=== PATIENT | male | born 1980 | race Caucasian/White ===

== ENCOUNTER 2017-03-01 17:19 | Emergency (ER) | payer BC, OTHER ==
[2017-03-01 17:25] VITALS: BP 135/92; PULSE 70; RESP 16; TEMP 98.5
[2017-03-01] MEDS ORDERED: PROPARACAINE 0.5% OPHTH DROPS 15 ML BTL LEFT EYE STA (17:31)
[2017-03-01] MEDS ORDERED: DIPH,PERTUS(ACELL)TETVAC-LF 0.5 ML VIAL IM ONE (17:42)
--- NOTE | 2017-03-01 17:48 | ED ---
General Adult HPI - General Chief complaint: Eye Problems Stated complaint: [employer] in Left Eye Time Seen by Provider: 03/01/17 17:28 Source: patient, RN notes reviewed Mode of arrival: ambulatory Limitations: no limitations - History of Present Illness Initial comments: Patient is a 36-year-old male who presents emergency room today with a chief complaint of injury to the left eye. He does admit that approximately 5 hours ago at work he had some refractory technician that got into his left eye. He states he did wash it out. He states still had some irritation to the left eye. He states it is sensitive to light. States tetanus is not up-to-date. He denies any other complaints or symptoms. Patient denies any recent fever, chills, shortness of breath, chest pain, back pain, abdominal pain, nausea or vomiting, numbness or tingling, dysuria or hematuria, constipation or diarrhea, headaches , or any other complaints. - Related Data Previous Rx's Medication Instructions Recorded Ofloxacin 0.3% Ophth Soln [Ocuflox 1 - 2 drops LEFT EYE QID 7 Days 03/01/17 Ophth Soln] Allergies Allergy/AdvReac Type Severity Reaction Status Date / Time No Known Allergies Allergy Verified 03/01/17 17:28 Review of Systems ROS Statement: Those systems with pertinent positive or pertinent negative responses have been documented in the HPI. ROS Other: All systems not noted in ROS Statement are negative. Past Medical History Past Medical History: Diabetes Mellitus, Hyperlipidemia History of Any Multi-Drug Resistant Organisms: None Reported Past Surgical History: Hernia Repair, Orthopedic Surgery Additional Past Surgical History / Comment(s): pylinoidal cyst, right shoulder Past Anesthesia/Blood Transfusion Reactions: No Reported Reaction Past Psychological History: ADD/ADHD Smoking Status: Never smoker Past Alcohol Use History: None Reported Past Drug Use History: None Reported - Past Family History Mother Family Medical History: No Reported History General Exam - General Exam Comments Initial Comments: General: The patient is awake and alert, in no distress, and does not appear acutely ill. Eye: Pupils are equal, round and reactive to light, extra-ocular movements are intact. No nystagmus. Redness and irritation to the left conjunctiva. Watery discharge. Ears, nose, mouth and throat: There are moist mucous membranes and no oral lesions. Neck: The neck is supple, there is no tenderness or JVD. Cardiovascular: There is a regular rate and rhythm. No murmur, rub or gallop is appreciated. Respiratory: Lungs are clear to auscultation, respirations are non-labored, breath sounds are equal. No wheezes, stridor, rales, or rhonchi. Musculoskeletal: Normal ROM, no tenderness. Strength 5/5. Sensation intact. Pulses equal bilaterally 2+. Neurological: A&O x 3. CN II-XII intact, There are no obvious motor or sensory deficits. Coordination appears grossly intact. Speech is normal. Skin: Skin is warm and dry and no rashes or lesions are noted. Psychiatric: Cooperative, appropriate mood & affect, normal judgment. Limitations: no limitations Course Vital Signs 03/01/17 17:21 Temperature 98.5 F Pulse Rate 70 Respiratory 16 Rate Blood Pressure 135/92 O2 Sat by Pulse 97 Oximetry Procedures - Procedures Initial comment: Patient's left eye was checked with pH paper is 7.0. Was anesthetized locally with proparacaine drops were did relieve her symptoms. It was stained with folerscen and checked with both brown lamp and slit lamp exam which showed corneal abrasion at the 4:00 o'clock position. Medical Decision Making - Medical Decision Making Patient's pH normal urine emergency room. Patient will be started on antibiotic drops and tetanus is been updated. Advised follow-up delivery director over the next 2 days of symptoms have not completely resolved. Advised to use eyedrops and not wear contacts until symptoms have resolved. Disposition Clinical Impression: Corneal abrasion, left Disposition: HOME SELF-CARE Condition: Good Instructions: Corneal Abrasion (ED) Additional Instructions: Please use eyedrops for at least 2-3 days past once all symptoms have resolved. Please do not wear contacts until all symptoms have resolved. Please follow- up the delivery director over the next 2 days of symptoms are not improved. Please return to emergency room for any other concerns. Prescriptions: Ofloxacin 0.3% Ophth Soln [Ocuflox Ophth Soln] 1 - 2 drops LEFT EYE QID 7 Days Referrals: Kai Carlos MD [Primary Care Provider] - 1-2 days Bubba Malave MD [STAFF PHYSICIAN] - 1-2 days Time of Disposition: 17:46
== END 2017-03-01 18:03 | disposition home or self-care (01) ==
LOC: EC 17:19
DX: S05.02XA Injury of conjunctiva and corneal abrasion without foreign body, left eye, initial encounter (principal); Z23 Encounter for immunization; X58.XXXA Exposure to other specified factors, initial encounter; Y93.89 Activity, other specified; Y99.0 Civilian activity done for income or pay; Y92.69 Other specified industrial and construction area as the place of occurrence of the external cause
CPT/HCPCS: 90471; 90715; 99283

== ENCOUNTER 2017-04-21 07:16 | Emergency (ER) | payer BC, OTHER ==
[2017-04-21] MEDS ORDERED: DIPH,PERTUS(ACELL)TETVAC-LF 0.5 ML VIAL IM ONE (07:21)
[2017-04-21 07:26] VITALS: PULSE 92
[2017-04-21 07:35] LABS: Glucose,Whole Blood 367 mg/dL (75-99)
[2017-04-21 07:54] LABS: Basophils # (A) 0.1 k/uL (0-0.2); Basophils % (A) 1 %; CH 29.9; CHCM 35.4; Eosinophils # (A) 0.2 k/uL (0-0.7); Eosinophils % (A) 4 %; HCT 41.2 % (39.0-53.0); HDW 2.87; HGB 14.8 gm/dL (13.0-17.5); Luc # (Auto) 0.19; Luc % (Auto) 3; Lymphocytes % (A) 33 %; MCH 30.5 pg (25.0-35.0); MCV 84.7 fL (80.0-100.0); Mean Platelet Volume 7.7; Monocytes # (A) 0.4 k/uL (0-1.0); Monocytes % (A) 6 %; Neutrophils # (A) 3.3 k/uL (1.3-7.7); Neutrophils % (A) 54 %; RBC 4.86 m/uL (4.30-5.90); RDW 12.9 % (11.5-15.5); WBC 6.2 k/uL (3.8-10.6); WBC (Perox) 6.03
[2017-04-21 08:04] LABS: ALT 46 U/L (21-72); AST 26 U/L (17-59); Alcohol <10 mg/dL; Alkaline Phosphatase 113 U/L (38-126); Amylase 33 U/L (30-110); Anion Gap 14 mmol/L; Blood Urea Nitrogen 14 mg/dL (9-20); Calcium 9.6 mg/dL (8.4-10.2); Carbon Dioxide 21 mmol/L (22-30); Chloride 103 mmol/L (98-107); Glucose 366 mg/dL (74-99); Non-African American GFR(MDRD) >60 (>60 ml/min/1.73 sqM); Partial Thromboplastin Time 22.4 sec (22.0-30.0); Potassium 4.6 mmol/L (3.5-5.1); Prothrombin Time 10.4 sec (9.0-12.0); Sodium 138 mmol/L (137-145); Total Bilirubin 0.8 mg/dL (0.2-1.3); Total Protein 7.5 g/dL (6.3-8.2)
--- NOTE | 2017-04-21 08:05 | XR ---
EXAMINATION TYPE: XR pelvis AP view DATE OF EXAM: 04/21/2017 CLINICAL HISTORY: pain TECHNIQUE: Single view the pelvis is submitted. FINDINGS: No evidence for fracture, dislocation or bony lesion. Joint spaces are well-preserved. S I joints appear symmetric. IMPRESSION: 1. No acute fracture or dislocation seen. ICD 10 NO FRACTURE, INITIAL EVALUATION
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
[2017-04-21 08:21] LABS: Creatine Kinase 192 U/L (55-170)
[2017-04-21 08:34] LABS: Creatine Kinase MB 1.1 ng/mL (0.0-2.4); Troponin I <0.012 ng/mL (0.000-0.034)
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
--- NOTE | 2017-04-21 08:43 | XR ---
EXAMINATION TYPE: XR ankle complete LT DATE OF EXAM: 04/21/2017 COMPARISON: NONE HISTORY: Pain TECHNIQUE: 3 views of the left ankle are submitted for evaluation. FINDINGS: There is no evidence for fracture or dislocation. Ankle mortise is intact. Soft tissues are within normal limits. IMPRESSION: 1. No evidence for acute fracture.
--- NOTE | 2017-04-21 08:43 | XR ---
EXAMINATION TYPE: XR knee complete LT DATE OF EXAM: 04/21/2017 CLINICAL HISTORY: pain TECHNIQUE: Three views of the left knee are obtained. COMPARISON: None. FINDINGS: There is no acute fracture/dislocation. The tri-compartment joint spaces appear within no rmal limits. The overlying soft tissue appears unremarkable. IMPRESSION: There is no acute fracture or dislocation ICD 10 NO FRACTURE, INITIAL EVALUATION
--- NOTE | 2017-04-21 08:44 | XR ---
EXAMINATION TYPE: XR shoulder complete LT DATE OF EXAM: 04/21/2017 CLINICAL HISTORY: pain COMPARISON: NONE TECHNIQUE: Three views of the left shoulder are obtained. FINDINGS: There is no acute fracture/dislocation evident. The acromioclavicular and glenohumeral bethel int spaces appear within normal limits. The visualized ribs are intact and unremarkable. IMPRESSION: 1. There is no acute fracture or dislocation. ICD 10 NO FRACTURE, INITIAL EVALUATION
[2017-04-21] MEDS ORDERED: KETOROLAC 30 MG/ML 1 ML VIAL IVP STA (08:51)
[2017-04-21] MEDS ORDERED: SODIUM CHLORIDE 0.9% 1,000 ML IV ONE (08:56)
[2017-04-21 11:02] VITALS: BP 141/87; RESP 18; TEMP 97.4
== END 2017-04-21 11:03 | disposition home or self-care (01) ==
LOC: EC 07:16
DX: S93.402A Sprain of unspecified ligament of left ankle, initial encounter (principal); S80.02XA Contusion of left knee, initial encounter; S40.212A Abrasion of left shoulder, initial encounter; Z98.890 Other specified postprocedural states; E11.65 Type 2 diabetes mellitus with hyperglycemia; V20.4XXA Motorcycle driver injured in collision with pedestrian or animal in traffic accident, initial encounter; Y92.410 Unspecified street and highway as the place of occurrence of the external cause; Y93.89 Activity, other specified; Z53.20 Procedure and treatment not carried out because of patient's decision for unspecified reasons
CPT/HCPCS: 99285; 96374; 96361; 36415; 86900; 86901; 80053; 82150; 82550; 82553; 83690; 84484; 85025; 85610; 85730; 86850; 80320; 71010; 72170; 73030; 73562; 73610; 72125; 70450; J1885

== ENCOUNTER → 2018-06-28 | Outpatient (CLI) | payer BC ==
--- NOTE | 2018-06-28 18:32 | EST ---
EXERCISE STRESS DATE OF SERVICE: 06/28/2018 AGE: 37 SEX: Male HT: 5'9" WT: 210 PROTOCOL: Jeremy STAGE: III DURATION OF EXERCISE: 10:00 HEART RATE REST: 86 BLOOD PRESSURE REST: 112/79 MAXIMUM HEART RATE ACHIEVED: 172 MAXIMUM BLOOD PRESSURE: 156/69 85% MPHR: 154 100% MPHR: 181 METS: 11.7 INDICATIONS: Palpitations. CLINICAL INFORMATION: STRESS DATA: Pre-testing physical examination showed a heart rate of 86, pressure 112/79 mmHg. Baseline EKG showed sinus mechanism. The patient exercised on the treadmill according to Jeremy protocol for a total of 10 minutes and achieved 11.7 METs. Maximum heart rate was 172, which is about 95% of maximum predicted heart rate. Maximum blood pressure was 156/69 mmHg. Clinically the patient developed some chest discomfort in response to exercise. The discomfort was resolved on recovery. The EKG showed about 0.[address]-segment changes as well. The changes could be ischemic or could be worsening of the baseline EKG. The EKG showed about 0.[address]-segment changes at the peak of the exercise as well as on recovery. CONCLUSION: 1. Excellent exercise tolerance. 2. Chest discomfort in response to exercise. 3. Mildly abnormal EKG in response to exercise as well. 4. If the patient's symptoms are concerning for angina, a stress test with imaging modality is highly recommended. MMODL / IJN: [id number] /
== END | disposition home or self-care (01) ==
LOC: RADNMMAIN 08:56
PROVIDERS: ATTEND Internal Medicine
DX: R00.2 Palpitations (principal); R06.02 Shortness of breath
CPT/HCPCS: 93017

== ENCOUNTER 2019-05-01 12:13 | Emergency (ER) | payer OTHER ==
[2019-05-01 12:57] VITALS: RESP 18
--- NOTE | 2019-05-01 13:42 | ED ---
General Adult HPI - General Chief complaint: Psychiatric Symptoms Stated complaint: EPS eval Time Seen by Provider: 05/01/19 13:02 Source: patient, RN notes reviewed Mode of arrival: ambulatory Limitations: no limitations - History of Present Illness Initial comments: 38-year-old male with a past psychiatric history of depression and bipolar disorder presents to the emergency department for a chief complaint of suicidal thoughts. Patient states these thoughts have been stable for years. States he recently started seeing a counselor who wanted him to come in for evaluation of the suicidal thoughts. States that he quotes a letter to his friend stating how he wanted to kill himself and his called his counselor who sent him to the emergency department. Patient does not have a plan for suicide and states that he would do it in the most painless way possible. Patient denies these thoughts worsening in recent times and states that his thoughts have been stable for years. Denies any thoughts of harming anyone else.Patient has no other complaints at this time including shortness of breath, chest pain, abdominal pain, nausea or vomiting, headache, or visual changes. - Related Data Home Medications Medication Instructions Recorded Confirmed Glimepiride [Amaryl] 2 mg PO BID 05/01/19 05/01/19 metFORMIN HCL 1,000 mg PO BID 05/01/19 05/01/19 Allergies Allergy/AdvReac Type Severity Reaction Status Date / Time No Known Allergies Allergy Verified 05/01/19 13:31 Review of Systems ROS Statement: Those systems with pertinent positive or pertinent negative responses have been documented in the HPI. ROS Other: All systems not noted in ROS Statement are negative. Past Medical History Past Medical History: Diabetes Mellitus, Hyperlipidemia History of Any Multi-Drug Resistant Organisms: None Reported Past Surgical History: Hernia Repair, Orthopedic Surgery Additional Past Surgical History / Comment(s): pylinoidal cyst, right shoulder Past Anesthesia/Blood Transfusion Reactions: No Reported Reaction Past Psychological History: ADD/ADHD, Bipolar Smoking Status: Never smoker Past Alcohol Use History: None Reported Past Drug Use History: None Reported - Past Family History Mother Family Medical History: No Reported History General Exam Limitations: no limitations General appearance: alert, in no apparent distress Head exam: Present: atraumatic, normocephalic, normal inspection Eye exam: Present: normal appearance, PERRL, EOMI. Absent: scleral icterus, conjunctival injection, periorbital swelling ENT exam: Present: normal exam, mucous membranes moist Neck exam: Present: normal inspection, full ROM. Absent: tenderness, meningismus, lymphadenopathy Respiratory exam: Present: normal lung sounds bilaterally. Absent: respiratory distress, wheezes, rales, rhonchi, stridor Cardiovascular Exam: Present: regular rate, normal rhythm, normal heart sounds. Absent: systolic murmur, diastolic murmur, rubs, gallop, clicks Psychiatric exam: Present: suicidal ideation. Absent: homicidal ideation Course Vital Signs 05/01/19 12:53 Temperature 98.6 F Pulse Rate 74 Respiratory 18 Rate Blood Pressure 144/94 O2 Sat by Pulse 98 Oximetry Medical Decision Making - Medical Decision Making 38-year-old male with a past psychiatric history of depression and bipolar disorder presents for suicidal thoughts. These have been stable for years. Patient denies any increase in recent suicidal thoughts. Patient states he only came in today because his therapist wanted to. Denies a plan for suicide. Patient was evaluated by EPS did form a safety plan. Patient was discharged. He will follow up outpatient and return if he has any worsening symptoms which were discussed with him. - Lab Data Lab Results 05/01/19 Range/Units 13:20 Urine Opiates Screen Not Detected (NotDetected) Ur Oxycodone Screen Not Detected (NotDetected) Urine Methadone Screen Not Detected (NotDetected) Ur Propoxyphene Screen Not Detected (NotDetected) Ur Barbiturates Screen Not Detected (NotDetected) U Tricyclic Antidepress Not Detected (NotDetected) Ur Phencyclidine Scrn Not Detected (NotDetected) Ur Amphetamines Screen Not Detected (NotDetected) U Methamphetamines Scrn Not Detected (NotDetected) U Benzodiazepines Scrn Not Detected (NotDetected) Urine Cocaine Screen Not Detected (NotDetected) U Marijuana (THC) Screen Detected H (NotDetected) Disposition Clinical Impression: Depression Disposition: HOME SELF-CARE Condition: Good Instructions (If sedation given, give patient instructions): Suicide Prevention (ED), Depression (ED) Additional Instructions: Please follow up with primary care in 1-2 days. Return to the emergency department if you have any worsening symptoms. Is patient prescribed a controlled substance at d/c from ED?: No Referrals: Kai Carlos MD [Primary Care Provider] - 1-2 days Time of Disposition: 15:54
[2019-05-01 13:43] LABS: Amphetamine Screen,Urine Not Detected (NotDetected); Barbiturate Screen,Urine Not Detected (NotDetected); Benzodiazepines Screen,Urine Not Detected (NotDetected); Cocaine Screen,Urine Not Detected (NotDetected); Methadone Screen, Urine Not Detected (NotDetected); Opiate Screen,Urine Not Detected (NotDetected); Oxycodone Screen, Urine Not Detected (NotDetected); Phencyclidine Screen,Urine Not Detected (NotDetected); Tricyclic Antidepressant,Urine Not Detected (NotDetected); Urn Cannabinoid Scrn Detected (NotDetected)
[2019-05-01 16:22] VITALS: BP 133/96; PULSE 79; TEMP 98
== END 2019-05-01 16:22 | disposition home or self-care (01) ==
LOC: EC 12:13
DX: F31.30 Bipolar disorder, current episode depressed, mild or moderate severity, unspecified (principal); R45.851 Suicidal ideations; E11.9 Type 2 diabetes mellitus without complications; Z79.84 Long term (current) use of oral hypoglycemic drugs
CPT/HCPCS: 80306; 82075; 99285

== ENCOUNTER → 2022-12-07 | Outpatient (CLI) | payer OTHER ==
[2022-12-08 02:34] LABS: HCT 37.7 % (39.6-50.0); HGB 12.3 g/dL (13.0-17.0); MCH 29.2 pg (27.0-32.0); MCHC 32.6 g/dL (32.0-37.0); MCV 89.5 fL (80.0-97.0); Mean Platelet Volume 11.5 fL (9.5-12.2); NRBC Per 100 WBC 0 /100 WBCS (0.0-0.0); Platelet Count 223 X 10*3/uL (140-440); RBC 4.21 X 10*6/uL (4.40-5.60); RDW 12.8 % (11.5-14.5); WBC 6.49 X 10*3/uL (4.50-10.00)
[2022-12-08 03:37] LABS: Anion Gap 11.4 mmol/L (10.00-18.00); Blood Urea Nitrogen 9.5 mg/dL (9.0-27.0); Carbon Dioxide 25.6 mmol/L (20.0-27.5); Non-African American GFR(CKD) 103.5 (60.0-200.0); Potassium 4.7 mmol/L (3.5-5.5)
== END | disposition home or self-care (01) ==
LOC: LABPAT 13:02
PROVIDERS: ATTEND Internal Medicine Interventional Cardiology
DX: Z01.812 Encounter for preprocedural laboratory examination (principal); I35.0 Nonrheumatic aortic (valve) stenosis
CPT/HCPCS: 80051; 82565; 84520; 85027

== ENCOUNTER → 2023-01-05 | Outpatient (CLI) | payer OTHER ==
[2023-01-05 12:02] LABS: INR 0.9 (<1.2); Partial Thromboplastin Time 25.8 sec (22.0-30.0); Prothrombin Time 10.1 sec (9.0-12.0)
--- NOTE | 2023-01-05 12:10 | P.PN ---
Progress Note - Text Progress Note Date: 01/05/23 5 meter walk test completed without difficulty: #1 5.10 sec #2 4.67 sec #3 4.53 sec STS risk to be calculated and discussed with patient
[2023-01-05 14:47] LABS: HCT 38.4 % (39.6-50.0); MCHC 33.9 g/dL (32.0-37.0); MCV 88.7 fL (80.0-97.0); Mean Platelet Volume 10.5 fL (9.5-12.2); NRBC Per 100 WBC 0 /100 WBCS (0.0-0.0); Platelet Count 208 X 10*3/uL (140-440); RBC 4.33 X 10*6/uL (4.40-5.60); RDW 12.9 % (11.5-14.5); WBC 5.21 X 10*3/uL (4.50-10.00)
[2023-01-05 15:21] LABS: Chol/HDL Ratio 3.22 Ratio
[2023-01-05 15:22] LABS: ALT 25 U/L (10-49); AST 16 U/L (14-35); African American GFR (CKD) 125.4 (60.0-200.0); Albumin 4.6 g/dL (3.8-4.9); Albumin/Globulin Ratio 1.88 (1.60-3.17); Alkaline Phosphatase 75 U/L (41-126); BUN/Creat Ratio 9.88 Ratio (12.00-20.00); Calcium 9.5 mg/dL (8.7-10.3); Carbon Dioxide 27.7 mmol/L (20.0-27.5); Chloride 102 mmol/L (96-109); Globulin 2.4 g/dL (1.6-3.3); Glucose 223 mg/dL (70-110); Magnesium 1.9 mg/dL (1.5-2.4); Non-African American GFR(CKD) 108.2 (60.0-200.0); Potassium 4.6 mmol/L (3.5-5.5); Sodium 142 mmol/L (135-145)
[2023-01-05 15:58] LABS: Hepatitis A Antibody IgM Nonreactive (Nonreactive); Hepatitis B Core IgM Nonreactive (Nonreactive); Hepatitis C IgG Antibody Nonreactive (Nonreactive)
[2023-01-05 18:16] LABS: Hepatitis B Surface Antigen Nonreactive (Nonreactive)
--- NOTE | 2023-01-07 09:50 | US ---
EXAMINATION TYPE: US vein mapping BIL DATE OF EXAM: 01/05/2023 12:49 PM COMPARISON: NONE CLINICAL INDICATION: Male, 42 years old with history of OPEN HEART; SIDE PERFORMED: Bilateral TECHNIQUE: Lower extremity saphenous vein is examined and measured utilizing real time linear array sonography. Patient History: Smoker: No Heart Disease: No Previous DVT: No Vascular Surgery: No Discoloration: No Hypertension: Yes Diabetes: Yes Paralysis: No Varicosities: Yes Edema: No DUPLEX FINDINGS: Greater Saphenous: Color flow seen Measurements in mm: Right Greater Saphenous: Groin: 4.7x4.8 mm High Thigh: 2.9x3.0 mm Mid Thigh: 2.2x2.8 mm Above Knee: 3.5x3.7 mm Knee: 3.2x4.0 mm Below Knee: 3.2x3.8 mm Mid Calf: 2.7x3.8 mm At Ankle: 3.0x4.0 mm Left Greater Saphenous: Groin: 4.9x6.7 mm High Thigh: 3.5x4.5 mm Mid Thigh: 3.0x3.2 mm Above Knee: 3.1x3.5 mm Knee: 3.3x3.8 mm Below Knee: 2.0x2.6 mm Mid Calf: 3.5x3.9 mm At Ankle: 3.3x3.2 mm extensive varicosities visualized bilaterally, GSV leaves fasciae IMPRESSION: 1. Bilateral GSV measurements listed above. 2. Performing surgeon to determine viability as conduit.
== END | disposition home or self-care (01) ==
LOC: LABWHC1 11:01
PROVIDERS: ATTEND Surgery
DX: Z01.810 Encounter for preprocedural cardiovascular examination (principal); I10 Essential (primary) hypertension; E11.9 Type 2 diabetes mellitus without complications
CPT/HCPCS: 36415; 80053; 80061; 80074; 83036; 83735; 84443; 85027; 85610; 85730; 87070; 87086; 93970

== ENCOUNTER 2023-01-10 08:00 | Inpatient (IN) | payer OTHER ==
[2023-01-11] MEDS ORDERED: propofoL 1,000 MG/100 ML VIAL IV ONE (05:00)
[2023-01-11] MEDS ORDERED: NITROGLYCERIN-D5W PMX 50 MG in DEXTROSE/WATER 1 250ML.BAG IV ONE (05:00)
[2023-01-11] MEDS ORDERED: ELECTROLYTE-A SOLUTION 1,000 ML with POTASSIUM CHLORIDE 40 MEQ, MAGNESIUM SULFATE 16 ME... IV ONE ×5 (05:00)
[2023-01-11] MEDS ORDERED: SODIUM CHLORIDE 0.9% 1,000 ML IV ONE (05:00)
[2023-01-11] MEDS ORDERED: MANNITOL 25% 12.5 GM/50 ML VIAL IV ONE (05:00)
[2023-01-11] MEDS ORDERED: CHLORHEXIDINE GLUCONATE 15 ML CUP MUCOUS MEM ONE (05:00)
[2023-01-11] MEDS ORDERED: PHENYLEPHRINE 40 MG in SODIUM CHLORIDE 0.9% 250 ML IV ONE (05:00)
[2023-01-11] MEDS ORDERED: NITROGLYCERIN SL TABS 0.4 MG TAB SUBLINGUAL ONE (05:00)
[2023-01-11] MEDS ORDERED: HEPARIN SODIUM,PORCINE 5,000 UNIT in SODIUM CHLORIDE 0.9% 500 ML 500 ML IV ONE (05:00)
[2023-01-11] MEDS ORDERED: METOPROLOL TARTRATE 12.5 MG TAB PO ONE (05:00)
[2023-01-11] MEDS ORDERED: ALBUMIN HUMAN 5% 500 ML IVPB ONE (05:00)
[2023-01-11] MEDS ORDERED: MAGNESIUM SULFATE 16.24 MEQ in EMPTY SYRINGE 1 SYR IV ONE (05:00)
[2023-01-11] MEDS ORDERED: ASPIRIN 325 MG TAB PO ONE (05:00)
[2023-01-11] MEDS ORDERED: HEPARIN SODIUM 1,000 UN/ML (10ML VL) IV ONE (05:00)
[2023-01-11] MEDS ORDERED: TRANEXAMIC ACID 2,000 MG in SODIUM CHLORIDE 0.9% 80 ML IV ONE ×4 (05:00)
[2023-01-11] MEDS ORDERED: ATORVASTATIN 10 MG TAB PO ONE (05:00)
[2023-01-11] MEDS ORDERED: ALBUMIN HUMAN 25% 50 ML IV ONE (05:00)
[2023-01-11] MEDS ORDERED: PAPAVERINE 360 MG in SODIUM CHLORIDE 0.9% 90 ML IV ONE (05:00)
[2023-01-11] MEDS ORDERED: PROTAMINE SULFATE 250 MG in EMPTY BAG 1 BAG IV ONE (05:00)
[2023-01-11] MEDS ORDERED: PROTAMINE SULFATE 10 MG/ML 25 ML VIAL IV ONE ×2 (05:00→07:35)
[2023-01-11] MEDS ORDERED: PHENYLEPHRINE 10 MG/ML VIAL IV ONE (05:00)
[2023-01-11] MEDS ORDERED: CALCIUM CHLORIDE 100 MG/ML 10 ML SYRINGE IV ONE (05:00)
[2023-01-11] MEDS ORDERED: SODIUM BICARB 8.4% 50 ML SYR (1 MEQ/ML) IV ONE (05:00)
[2023-01-11] MEDS ORDERED: NOREPINEPHRINE 4 MG in SODIUM CHLORIDE 0.9% 250 ML IV ONE (05:00)
[2023-01-11] MEDS ORDERED: NITROGLYCERIN-D5W PMX 25 MG/250 ML BTL IV ONE (05:00)
[2023-01-11] MEDS ORDERED: INSULIN REGULAR 100 UNIT in SODIUM CHLORIDE 0.9% 100 ML IV ONE (05:00)
[2023-01-11] MEDS ORDERED: ceFAZolin 1,000 MG in SODIUM CHLORIDE 0.9% IRRIGATIO 1,000 ML IRRIGATION ONE (05:00)
[2023-01-11] MEDS ORDERED: LACTATED RINGERS 1,000 ML IV ONE (05:00)
[2023-01-11] MEDS ORDERED: ELECTROLYTE-A SOLUTION 1,000 ML with POTASSIUM CHLORIDE 100 MEQ, MAGNESIUM SULFATE 16 M... IV ONE ×5 (05:00)
[2023-01-11] MEDS ORDERED: CLEVIDIPINE BUTYRATE 25 MG in EMPTY BAG 1 BAG IV ONE (05:00)
[2023-01-11 06:16] LABS: Glucose,Whole Blood 232 mg/dL (70-110)
[2023-01-11] MEDS ORDERED: ALBUMIN HUMAN 5% (25gm) 500 ML VIAL IVPB ONE (07:35)
[2023-01-11] MEDS ORDERED: LIDOCAINE 2% SYG (PF) 100 MG/5 ML ONE (07:35)
[2023-01-11] MEDS ORDERED: HEPARIN SODIUM,PORCINE 10,000 UNIT/ML 1 ML VIAL ONE (07:35)
[2023-01-11] MEDS ORDERED: PROPOFOL 10 MG/ML 20 ML VIAL IV ONE (07:35)
[2023-01-11] MEDS ORDERED: ROCURONIUM 10 MG/ML (5 ML VIAL) IV ONE (07:35)
[2023-01-11] MEDS ORDERED: SODIUM CHLORIDE 0.9% IRRIG 1,000 ML BTL IRRIGATION ONE (07:35)
[2023-01-11] MEDS ORDERED: VANCOMYCIN 1,000 MG VIAL ONE (07:35)
[2023-01-11] MEDS ORDERED: LIDOCAINE 2% INJ 20 MG/ML (2 ML VIAL) ONE (07:35)
[2023-01-11] MEDS ORDERED: MIDAZOLAM HCL 10 MG/10 ML VIAL ONE (07:35)
[2023-01-11] MEDS ORDERED: fentaNYL (PF) 50 MCG/ML 50 ML VIAL ONE (07:35)
[2023-01-11] MEDS ORDERED: VECURONIUM 10 MG VIAL IV ONE (07:35)
[2023-01-11] MEDS ORDERED: MAGNESIUM SULFATE 4 MEQ/ML 10ML VIAL ONE (07:35)
[2023-01-11] MEDS ORDERED: TRANEXAMIC ACID IN NACL,ISO-OS 1,000 MG/100 ML BAG ONE (07:35)
[2023-01-11] MEDS ORDERED: ELECTROLYTE-R (PH 7.4) 1,000 ML IV.SOLN IV ONE (07:35)
[2023-01-11 08:25] LABS: Glucose,Whole Blood 160 mg/dL (70-110)
[2023-01-11] MEDS ORDERED: CALCIUM GLUCONATE IN NACL 2 GM in SALINE 1 100ML.BAG IVPB PRN (13:23)
[2023-01-11] MEDS ORDERED: DEXTROSE 5% IN WATER 100 ML with AMIODARONE 150 MG IV PRN (13:23)
[2023-01-11] MEDS ORDERED: AMIODARONE 450 MG in DEXTROSE 5% IN WATER 250 ML IV PRN ×2 (13:23)
[2023-01-11] MEDS ORDERED: DEXTROSE 50% SYRINGE 50 ML IVP PRN ×2 (13:23)
[2023-01-11] MEDS ORDERED: IPRATROPIUM-ALBUTEROL 3 ML NEB INHALATION PRN (13:23)
[2023-01-11] MEDS ORDERED: Magnesium Replacement Protocol 1 EACH MISC MISCELLANE PRN (13:23)
[2023-01-11] MEDS ORDERED: hydrALAZINE HCL 20 MG/ML 1 ML VIAL IVP PRN (13:23)
[2023-01-11] MEDS ORDERED: BENZOCAINE/MENTHOL LOZENG 1 EACH LOZENGE MUCOUS MEM PRN (13:23)
[2023-01-11] MEDS ORDERED: DEXMEDETOMIDINE/0.9% NACL(PMX) 400 MCG in EMPTY BAG 1 BAG IV SCH (13:23)
[2023-01-11] MEDS ORDERED: Potassium Replacement Protocol 1 EACH MISC MISCELLANE PRN (13:23)
[2023-01-11] MEDS ORDERED: ONDANSETRON 4 MG/2 ML VIAL IVP PRN (13:23)
[2023-01-11] MEDS ORDERED: AMIODARONE 360 MG in DEXTROSE 5% IN WATER 200 ML IV PRN ×2 (13:23)
[2023-01-11] MEDS ORDERED: MORPHINE SULFATE 2 MG/ML SYRINGE IVP PRN (13:23)
[2023-01-11] MEDS: CLEVIDIPINE BUTYRATE 25 MG in EMPTY BAG 1 BAG IV SCH ×2 (13:47→18:18)
[2023-01-11] MEDS ORDERED: NOREPINEPHRINE 4 MG in SODIUM CHLORIDE 0.9% 250 ML IV SCH (14:00)
[2023-01-11] MEDS: MILRINONE-D5W PMX 20 MG in DEXTROSE/WATER 1 100ML.BAG IV SCH (14:30)
[2023-01-11] MEDS: INSULIN REGULAR 100 UNIT in SODIUM CHLORIDE 0.9% 100 ML IV SCH (14:30)
[2023-01-11] MEDS: SODIUM CHLORIDE 0.9% 1,000 ML IV SCH (14:30)
[2023-01-11 14:48] LABS: Glucose,Whole Blood 153 mg/dL (70-110)
--- NOTE | 2023-01-11 14:48 | P.OP ---
Date of Procedure: 01/11/23 Preoperative Diagnosis: Severe bicuspid aortic valve stenosis, preserved left ventricular systolic function, diabetes mellitus, hypertension, hyperlipidemia, family history of coronary artery disease. Postoperative Diagnosis: Severe bicuspid aortic valves stenosis with fusion of the right and the left coronary cusps with very highly situated RCA takeoff, hypertension, hyperlipidemia ,diabetes mellitus ,family history of coronary artery disease Procedure(s) Performed: 1Aortic valve replacement using a 23 mm mechanical prosthesis, OnX valve with conform sewing ring. 2Exclusion of the left atrial appendage using a 35 mm atriclip 3-Intraoperative transesophageal echocardiogram and epi-aortic ultrasound Implants: ON-X Mechanical valve , 23 mm , SN: [id number] ATRICLIP 35 mm Anesthesia: GETA Surgeon: Hung Joseph Pathology: other (AORTIC VALVE) Condition: stable Disposition: ICU Indications for Procedure: Severe symptomatic calcified bicuspid aortic valve stenosis Operative Findings: Heavily calcified aortic valve with fusion of the left and right coronary cusps. Very high takeoff anteriorly of the right coronary artery. Some visible coronary artery disease at the level of the mid to distal posterior descending artery. Description of Procedure: Patient had a right internal jugular [place]-Donna catheter and a right radial arterial line placed in the preoperative holding area. His PA pressure was 40/24 his cardiac index was 3.8. Subsequently he was brought to the operating room where general endotracheal anesthesia was induced uneventfully. Huber catheter was placed. The chest abdomen and both lower extremities were prepped and draped using ChloraPrep. Ioban was used to cover the skin. Patient received 2 g of cefazolin intravenously as well as 1 g of vancomycin intravenously in view of positive nasal culture for MSSA. Transesophageal echocardiogram confirmed the preoperative finding of severe calcified aortic valve stenosis with mild aortic valve regurgitation. Left ventricular hypertrophy with preserved systolic function but evidence of some diastolic dysfunction with mild mitral valve regurgitation. Midline sternotomy was performed and the bone was quite dense and profusely bleeding. No bone wax was used. Both pleura remained grossly intact. Ankeney retractor was used. Mediastinal fat which was transected between 2 ties and epi-aortic ultrasound ruled out any protruding atheroma in the ascending aorta. Pericardium was opened in an inverted T fashion and pericardial cradle was created. Findings included a mildly dilated aorta which we knew from his CAT scan preoperatively at 4 cm and hypertrophied heart. The right coronary artery takeoff was very high anteriorly. There were visible coronary artery plaques at the level of the mid to distal posterior descending artery but none elsewhere. After systemic heparinization and after placement of respective pledgeted pursestring aortic cannulation in the proximal arch with a 21-[place]auritanian soft flow cannula, venous cannulation via the right atrial appendage with a 3 stage 29- [place] cannula, antegrade as well as retrograde cardioplegia catheter were placed. No left ventricular vent was used in this case. Cardiac rhythm bypass was initiated and with the heart empty and beating we went ahead and excluded the left atrial appendage by deploying a 35 mm at chiclet at its space. Subsequently the aorta was clamped and were able to achieve adequate arrest with around 200 mL of antegrade cold blood cardioplegia. A total of 1 L was given antegrade followed by 500 mL retrograde. All subsequent doses were given retrograde at 15-20 minutes interval. As mentioned above the right coronary artery takeoff was quite high and we made an aortotomy at around 1-1/2 cm above that. Extubation revealed a heavily calcified bicuspid aortic valve with fusion of the left and the right coronary cusps. We excised the valve into A while to decalcify this heavily calcified annulus. Thorough irrigation with around 750 mL of cold saline followed. CO2 was flowing over the field as long as the aorta was opened. We passed a total of 17 sutures of Tycron 2/0 pledgeted in a horizontal mattress fashion with a pledgeted on the ventricular side. The valve was sized at this point at the 23 mm onX mechanical valve which was brought into the field. All the sutures were passed symmetrically into the cuff of the valve that seated n icely in a supra-annular position. All the needles were cut and the sutures tied using the core- knot device. Both coronary ostia were clear. There was free movement of the disks and the valve orientation allowed the flow to the right and left coronaries preferentially. At this point rewarming was started as we closed the aorta in 2 layers using 4-0 Prolene buttressed on each corner with a pledget, with a first layer in a horizontal mattress fashion and the second layer an over and over technique. De-airing maneuvers were pursued at this point. Patient was placed in Trendelenburg position and with the aortic vent on maximum we went ahead and unclamping the aorta via patient required around 4 to 5 DCC to regained spontaneous sinus bradycardia rhythm. However the ST segment was normal. After around 15 minutes of reperfusion we were able to wean off cardiac bypass on low dose Primacor and Levophed. JOSE showed good functioning valve with low gradient at around 6 mmHg and de-airing was guided by JOSE in we achieved adequate de-airing. No paravalvular leak was noted. With that or pump suckers were stopped as we gave test dose followed by full dose protamine. Decannulation followed. The venous cannulation site required reinforcement with a running 4-0 Prolene at the tip of the appendage. 2 monopolar atrial pacing wires were affixed to the respective pursestring of the right atrium and one bipolar ventricular pacing wire was driven very superficially into the diaphragmatic aspect of the right ventricle. 219-Mauritanian Thong drain were left substernally. Mediastinal fat was estimated over the aorta and the pericardium was approximated nicely over the aorta and RV. After ensuring adequate hemostasis and hemodynamics and after a correct sponge, instrument and needle count the sternum was approximated patient did not receive any blood and bile duct but received around 1 L of Cell Saver blood. His chest to to the ICU in normal EKG atrial paced at 84 sinus bradycardia with good AV conduction. Pressure 40/20 Of 2.4 mean arterial pressure 74. using 6 [id number] Boyd cables after interposing fibrillar between the sternal edges. Thorough irrigation with cefazolin followed. The rest of the closure proceeded in layers. Skin glue was applied. Patient did not receive any blood bank product but received 1 L of Cell Saver blood. His chest to the ICU with excellent flow and anatomy normal EKG with sinus bradycardia , Atrially paced at 80 with a PA pressure 40/24, cardiac index of 2.4 mean arterial pressure 72 on low dose Primacor and Levophed
[2023-01-11] MEDS ORDERED: MUPIROCIN 2% OINT 22 GM TUBE NASAL ONE (15:00)
--- NOTE | 2023-01-11 15:17 | XR ---
EXAMINATION TYPE: XR chest 1V portable DATE OF EXAM: 01/11/2023 COMPARISON: 12/14/2022 HISTORY: Postop TECHNIQUE: Single frontal view of the chest is obtained. FINDINGS: ET tube approximately 3.4 cm of moody. NG tube seen extending in the upper quadrant of th e left. Subpulmonary [place]-Donna catheter overlies the proximal pulmonary outflow tract. There is posts urgical changes. No pneumothorax. No sizable pleural effusion or consolidation. IMPRESSION: Postoperative changes.
[2023-01-11 15:24] LABS: ABG Base Excess -1.6 mmol/L; ABG HCO3 24 mmol/L (21-25); ABG PCO2 44 mmHg (35-45); ABG PH 7.35 (7.35-7.45); ABG PO2 351 mmHg (83-108); ABG TCO2 25 mmol/L (19-24)
[2023-01-11 15:28] LABS: Allen Test Performed? no
[2023-01-11 15:32] LABS: Basophils % (A) 0 %; Eosinophils # (A) 0.1 k/uL (0-0.7); Eosinophils % (A) 1 %; HCT 28.8 % (39.0-53.0); Lymphocytes # (A) 1.5 k/uL (1.0-4.8); Lymphocytes % (A) 11 %; MCH 30.8 pg (25.0-35.0); MCHC 34.3 g/dL (31.0-37.0); MCV 89.8 fL (80.0-100.0); Mean Platelet Volume 8.3; Monocytes # (A) 0.7 k/uL (0-1.0); Monocytes % (A) 5 %; Neutrophils # (A) 11.4 k/uL (1.3-7.7); Neutrophils % (A) 82 %; Platelet Count 124 k/uL (150-450); RBC 3.21 m/uL (4.30-5.90); RDW 13.6 % (11.5-15.5); WBC 13.8 k/uL (3.8-10.6)
[2023-01-11 15:35] LABS: HGB 9.9 gm/dL (13.0-17.5)
[2023-01-11 15:37] LABS: Ionized Calcium 4.9 mg/dL (4.5-5.3)
[2023-01-11 15:41] LABS: INR 1.2 (<1.2); Partial Thromboplastin Time 28.9 sec (22.0-30.0); Prothrombin Time 12.7 sec (9.0-12.0)
[2023-01-11 15:44] LABS: ALT 23 U/L (4-49); AST 45 U/L (17-59); African American GFR (CKD) >90 (>60 ml/min/1.73 sqM); Albumin 3.2 g/dL (3.5-5.0); Alkaline Phosphatase 47 U/L (38-126); Anion Gap 7 mmol/L; Blood Urea Nitrogen 8 mg/dL (9-20); Calcium 7.8 mg/dL (8.4-10.2); Carbon Dioxide 24 mmol/L (22-30); Chloride 107 mmol/L (98-107); Glucose 162 mg/dL (74-99); Magnesium 2.1 mg/dL (1.6-2.3); Non-African American GFR(CKD) >90 (>60 ml/min/1.73 sqM); Potassium 4.6 mmol/L (3.5-5.1); Sodium 138 mmol/L (137-145); Total Bilirubin 0.5 mg/dL (0.2-1.3)
[2023-01-11 15:50] LABS: Glucose,Whole Blood 137 mg/dL (70-110)
[2023-01-11] MEDS ORDERED: IPRATROPIUM-ALBUTEROL 3 ML NEB INHALATION SCH (16:00)
[2023-01-11] MEDS: ALBUMIN HUMAN 5% 250 ML in EMPTY BAG 1 BAG IVPB PRN (16:06)
--- NOTE | 2023-01-11 16:42 | P.ANPRN ---
Procedure Note - Anesthesia - Invasive Line Right Central Line Time Out Performed: Yes ([id number]) Date of Procedure: 01/11/23 Location of Patient: PreOp Preparation: Sterile Prep, Sterile Dressing Central Line Location: Internal Jugular Ultrasound Used: Yes Purpose - Visualization and Identification of Vasculature: Yes Image Stored and Saved: Yes Narrative: Informed consent obtained.Right Internal jugular vein cannulated under aseptic precautions. 3cc 1% lidocaine infiltrated initially after cleaning with iodine based prep and draping. Ultrasound used to locate the vein and Seldinger technique used. 9Fr introduced sheath inserted and after the finding the needle with aircraft pilot needle/catheter. The introducer sheath was sutured in place. After the insertion of PA Catheter the insertion site was dressed with biopatch and tegaderm. Patient tolerated the procedure well. Right [place] Donna Time Out Performed: Yes Date of Procedure: 01/11/23 Location of Patient: PreOp Preparation: Sterile Prep, Sterile Dressing [place] Donna Line Location: Internal Jugular Ultrasound Used: No Narrative: Central line placement per sterile protocol utilized. 8Ff PA catheter threaded through the Right IJ introducer sheath under asepsis with continuous waveform monitoring. Catheter at 50 cms butch. - JOSE Intraop Pre Bypass JOSE Intraop - Anesthesia Indication: mechanical aortic valve replacement Date of Procedure: 01/11/23 Pre-operative Diagnosis: severe aortic stenosis Post-operative Diagnosis: severe aortic stenosis status post aortic valve replacement Surgeon: Hung Joseph Ejection Fraction: Normal Regional Wall Motion Abnormalities: None Left Ventricle Hypertrophy: Yes R. Ventricle Function: Normal Aortic Valve: Severely calcified aortic valve noted. Appears to be bicuspid/unicuspid. Aortic valve is that is stenosed with slit like opening. Mean gradient across the valve 44 mmHg and peak gradient 59 mm of mercury. Aortic Stenosis: Severe Aortic Regurgitation: Moderate Mitral Stenosis: None Mitral Regurgitation: Trace Tricuspid Stenosis: None Tricuspid Regurgitation: Trace Pulmonic Stenosis: None Pulmonic Regurgitation: None R. Atrial Dilation: No R. Atrial PFO: No L. Atrial Dilation: No Aortic Dissection: No Aortic Calcification: None Plural Effusion: None - JOSE Intraop Post Bypass JOSE Intraop Post Bypass Procedure Performed: Aortic valve replaced with mechanical valve Ejection Fraction: Normal Regional Wall Motion Abnormalities: None R. Ventricle Function: Normal Aortic Valve: Prosthetic aortic valve noted in situ. Mean gradient across the valve 6 mmHg and peak gradient 12 mmHg. There is trace paravalvular regurgitation at 1 o'clock position in short axis view. Without appears to be seated well with no hemodynamic issues. Mitral Valve: Unchanged Tricuspid: Unchanged Pulmonic: Unchanged Aortic Dissection: No
--- NOTE | 2023-01-11 16:48 | P.CNPUL ---
History of Present Illness Consult date: 01/11/23 Requesting physician: Hung Joseph Reason for consult: other (status post aortic valve replacement) Chief complaint: fatigue and lack of energy History of present illness: this is a 42-year-old white male, primarily a patient of Dr. Segundo, patient was referred recently to cardiology, patient developed history of heart murmur for many years. However recently the patient has been complaining of weakness fatigue and some shortness of breath on exertion, underwent further cardiac workup, he was found to have severe aortic stenosis, left ventricular hypertrophy, no previous history no chest pain, but he had intermittent episodes of palpitations. Patient is known to have history of type 2 diabetes without complications, hypertension, dyslipidemia, and strong family history of coronary artery disease.recent cardiac catheterizationshowed severe bicuspid aortic valve stenosis and mild nonocclusive coronary artery disease. Hence the patient was referred for aortic valve replacement. This was done today by Dr. Joseph, patient is now in the ICU on mechanical ventilation, and this consult was initiatedpatient is maintained ontidal volume of tidal volume of 500,assist control rate of 20, PEEP of 8 and FiO2 100%.ABG showed a pO2 of 351 pCO2 44 pH of 7.35, hence I cut down the FiO2 down to 40%.chest x-ray showed no evidence of active disease. Adequate placement of endotracheal tube, lines, and mediastinal chest tube. Patient is sedated, on propofol, he is also on milrinone, and he seems to be hemodynamically stable at this point. Review of Systems ROS unobtainable: due to endotracheal tube Past Medical History Past Medical History: Diabetes Mellitus, Hyperlipidemia, Hypertension Additional Past Medical History / Comment(s): SOB w/exertion History of Any Multi-Drug Resistant Organisms: None Reported Past Surgical History: Heart Catheterization, Hernia Repair, Orthopedic Surgery Additional Past Surgical History / Comment(s): pylonoidal cyst removed, right shoulder arthroscopic, vasectomy Past Anesthesia/Blood Transfusion Reactions: No Reported Reaction Additional Past Anesthesia/Blood Transfusion Reaction / Comment(s): wakes up quickly after anesthesia Smoking Status: Never smoker - Past Family History Mother Family Medical History: No Reported History Medications and Allergies Home Medications Medication Instructions Recorded Confirmed Type Glimepiride [Amaryl] 2 mg PO BID 05/01/19 01/05/23 History metFORMIN HCL 500 mg PO BID 05/01/19 01/05/23 History Rosuvastatin [Crestor] 10 mg PO DAILY 12/08/22 01/05/23 History lisinopriL [Zestril] 10 mg PO DAILY 12/08/22 01/05/23 History Mupirocin [Mupirocin 2%] 1 applic NASAL BID #1 tub 01/05/23 01/11/23 Rx Aspirin 325 mg PO DAILY 01/11/23 01/11/23 History Allergies Allergy/AdvReac Type Severity Reaction Status Date / Time No Known Allergies Allergy Verified 01/11/23 05:55 Physical Exam Vitals: Vital Signs Temp Pulse Pulse Resp BP BP Pulse Ox 01/11/23 16:15 85 20 97 01/11/23 16:00 84 20 96 01/11/23 15:45 85 20 98 01/11/23 15:42 84 01/11/23 15:40 82 20 99 01/11/23 15:31 83 01/11/23 15:30 96 14 98 01/11/23 15:29 01/11/23 15:20 82 20 100 01/11/23 15:10 79 20 100 01/11/23 15:00 80 20 99 01/11/23 14:50 78 20 100 01/11/23 14:40 79 20 100 01/11/23 14:30 37.5 F L 75 12 01/11/23 14:29 01/11/23 06:04 97.6 F 95 16 114/75 130/79 95 FiO2 01/11/23 16:15 01/11/23 16:00 40 01/11/23 15:45 01/11/23 15:42 01/11/23 15:40 01/11/23 15:31 01/11/23 15:30 40 01/11/23 15:29 40 01/11/23 15:20 01/11/23 15:10 01/11/23 15:00 100 01/11/23 14:50 01/11/23 14:40 100 01/11/23 14:30 01/11/23 14:29 100 01/11/23 06:04 Intake and Output 01/11/23 01/11/23 01/11/23 06:59 14:59 22:59 Intake Total 61.430 190.374 Output Total 2550 225 Balance -2488.570 -34.626 Intake: IV 52 154.2 Cardiac Output (0.9 20 Sodium Chloride) Milrinone-D5w Pmx 20 mg 16.2 In Dextrose/Water 1 100ml .bag @ Per Protocol IV . Q0M HUANG Rx#:[id number] Pressure Bag (0.9 Sodium 18 Chloride) Sodium Chloride 0.9% 1, 100 000 ml @ 50 mls/hr IV . Q20H HUANG Rx#:[id number] Intake, IV Titration 9.430 36.174 Amount Insulin Regular 100 unit 2.104 In Sodium Chloride 0.9% 100 ml @ Per Protocol IV .Q0M HUANG Rx#:[id number] Norepinephrine 4 mg In 7.326 3.869 Sodium Chloride 0.9% 250 ml @ 0.03 MCG/KG/MIN 10. 55 mls/hr IV .Q24H HUANG Rx #:[id number] propofoL 1,000 mg In 32.305 Empty Bag 1 bag @ Titrate IV .Q0M HUANG Rx#: [id number] Output: Chest Tube Drainage 140 Chest Tube Bilateral 140 Mediastinal Urine 550 85 Estimated Blood Loss 1999 Other: Weight 92.3 kg ABP, PAP, CO, CI - Last 8 Hours Arterial Blood Pressure 124/56 Arterial Blood Pressure 133/59 Arterial Blood Pressure 119/59 Arterial Blood Pressure 129/64 Arterial Blood Pressure 126/65 Arterial Blood Pressure 123/61 Arterial Blood Pressure 125/63 Arterial Blood Pressure 127/65 Arterial Blood Pressure 118/61 Arterial Blood Pressure 121/61 Pulmonary Artery Pressure 25/17 Pulmonary Artery Pressure 26/18 Pulmonary Artery Pressure 25/16 Pulmonary Artery Pressure 24/16 Pulmonary Artery Pressure 28/20 Pulmonary Artery Pressure 28/16 Pulmonary Artery Pressure 29/17 Pulmonary Artery Pressure 29/18 Pulmonary Artery Pressure 31/21 Pulmonary Artery Pressure 32/20 Cardiac Output 5.3 Cardiac Output 4.5 Cardiac Index 2.6 Cardiac Index 2.2 Physical Exam: Revealed a 42-year-old white male in no distress intubated and mechanically ventilated, sedated. Head: Atraumatic, normocephalic, endotracheal tube and orogastric tube are intact. HEENT:[Neck is supple.] [No neck masses.] [No thyromegaly.] [No JVD.] Chest: [Clear throughout, no crackles, no rhonchi, no wheezes.] Cardiac Exam: [Normal S1 and S2, no S3 gallop, no murmur.] Abdomen: [Soft, nontender, no megaly, no rebound, no guarding, normal bowel sounds.] Extremities: [No clubbing, no edema, no cyanosis.] Neurological Exam: could not assess patient is sedated. Psychiatric: Could not assess, patient is sedated. Results - Laboratory Findings CBC and BMP: 01/11/23 14:30 01/11/23 14:30 ABG ABG pH 7.35 (7.35-7.45) 01/11/23 15:21 ABG pCO2 44 mmHg (35-45) 01/11/23 15:21 ABG pO2 351 mmHg (83-108) H 01/11/23 15:21 ABG O2 Saturation 100.0 % (94-97) H 01/11/23 15:21 PT/INR, D-dimer PT 12.7 sec (9.0-12.0) H 01/11/23 14:30 INR 1.2 (<1.2) H 01/11/23 14:30 Abnormal lab findings: Abnormal Labs 01/05/23 01/11/23 01/11/23 11:14 06:13 08:23 WBC RBC Hgb Hct Plt Count Neutrophils # PT INR ABG pO2 ABG Total CO2 ABG O2 Saturation BUN Creatinine Glucose POC Glucose (mg/dL) 232 H 160 H Calcium Total Protein Albumin Crossmatch See Detail 01/11/23 01/11/23 01/11/23 14:30 14:30 14:30 WBC 13.8 H RBC 3.21 L Hgb 9.9 L D Hct 28.8 L Plt Count 124 L Neutrophils # 11.4 H PT 12.7 H INR 1.2 H ABG pO2 ABG Total CO2 ABG O2 Saturation BUN 8 L Creatinine 0.61 L Glucose 162 H POC Glucose (mg/dL) Calcium 7.8 L Total Protein 5.0 L Albumin 3.2 L Crossmatch 01/11/23 01/11/23 01/11/23 14:47 15:21 15:49 WBC RBC Hgb Hct Plt Count Neutrophils # PT INR ABG pO2 351 H ABG Total CO2 25 H ABG O2 Saturation 100.0 H BUN Creatinine Glucose POC Glucose (mg/dL) 153 H 137 H Calcium Total Protein Albumin Crossmatch - Diagnostic Findings Chest x-ray: image reviewed (as noted in HPI.) Assessment and Plan Assessment: impression: Severe bicuspid aortic valve stenosis with preserved LV systolic function, status post aortic valve replacement.using a 23 mm mechanical prosthesis. Type 2 diabetes without complications Benign essential hypertension Dyslipidemia Family history of coronary artery disease Tobacco dependence syndrome Recommendation: Continue ventilatory support Continue hemodynamic support GI and DVT prophylaxis we will address weaning and extubation in the next few hours. We'll continue to follow. Time with Patient: Greater than 30
[2023-01-11] MEDS: HEPARIN SODIUM,PORCINE/PF 5,000 UNIT/0.5 ML SYRINGE SQ SCH ×2 (16:59→23:21)
[2023-01-11] MEDS: ACETAMINOPHEN IV (For NPO) 1,000 MG in EMPTY BAG 1 BAG IVPB SCH ×2 (17:03→23:21)
[2023-01-11 17:09] LABS: Glucose,Whole Blood 148 mg/dL (70-110)
[2023-01-11 17:58] LABS: ABG Base Excess -0.8 mmol/L; ABG HCO3 25 mmol/L (21-25); ABG Oxygen Saturation 98.8 % (94-97); ABG PCO2 49 mmHg (35-45); ABG PH 7.32 (7.35-7.45); ABG PO2 110 mmHg (83-108); ABG TCO2 27 mmol/L (19-24)
[2023-01-11 18:00] LABS: Allen Test Performed? no
[2023-01-11] MEDS: KETOROLAC 15 MG/ML 1 ML VIAL IVP SCH ×2 (18:09→23:20)
[2023-01-11 18:23] LABS: Glucose,Whole Blood 132 mg/dL (70-110)
[2023-01-11 18:47] LABS: Basophils % (A) 0 %; Eosinophils % (A) 0 %; HCT 29.1 % (39.0-53.0); HGB 9.9 gm/dL (13.0-17.5); Lymphocytes # (A) 0.8 k/uL (1.0-4.8); Lymphocytes % (A) 6 %; MCH 30.7 pg (25.0-35.0); MCV 90.2 fL (80.0-100.0); Mean Platelet Volume 8.3; Monocytes # (A) 0.6 k/uL (0-1.0); Monocytes % (A) 4 %; Neutrophils # (A) 12.2 k/uL (1.3-7.7); Neutrophils % (A) 89 %; Platelet Count 134 k/uL (150-450); RBC 3.22 m/uL (4.30-5.90); RDW 13.7 % (11.5-15.5); WBC 13.8 k/uL (3.8-10.6)
[2023-01-11] MEDS ORDERED: METOPROLOL TARTRATE 12.5 MG TAB PO STA ×3 (19:04→23:12)
[2023-01-11 19:10] LABS: Glucose,Whole Blood 91 mg/dL (70-110)
[2023-01-11 19:59] LABS: Glucose,Whole Blood 180 mg/dL (70-110)
[2023-01-11 20:25] LABS: Basophils % (A) 0 %; Eosinophils % (A) 0 %; HCT 29.6 % (39.0-53.0); HGB 10.2 gm/dL (13.0-17.5); Lymphocytes # (A) 0.5 k/uL (1.0-4.8); Lymphocytes % (A) 4 %; MCH 30.8 pg (25.0-35.0); MCHC 34.5 g/dL (31.0-37.0); MCV 89.3 fL (80.0-100.0); Mean Platelet Volume 9.4; Monocytes # (A) 0.7 k/uL (0-1.0); Monocytes % (A) 5 %; Neutrophils # (A) 11.9 k/uL (1.3-7.7); Neutrophils % (A) 90 %; Platelet Count 119 k/uL (150-450); RBC 3.31 m/uL (4.30-5.90); RDW 13.6 % (11.5-15.5); WBC 13.2 k/uL (3.8-10.6)
[2023-01-11] MEDS: IPRATROPIUM-ALBUTEROL 3 ML NEB INHALATION SCH (20:46)
[2023-01-11 20:56] LABS: Glucose,Whole Blood 167 mg/dL (70-110)
[2023-01-11] MEDS: SENNOSIDES-DOCUSATE SODIUM 1 EACH TAB PO SCH (21:17)
[2023-01-11] MEDS: AMIODARONE 200 MG TAB PO SCH (22:00)
[2023-01-11] MEDS: MUPIROCIN 2% OINT 22 GM TUBE NASAL SCH (22:00)
[2023-01-11 22:07] LABS: Glucose,Whole Blood 141 mg/dL (70-110)
[2023-01-11 23:02] LABS: Glucose,Whole Blood 137 mg/dL (70-110)
[2023-01-12 00:15] LABS: Glucose,Whole Blood 151 mg/dL (70-110)
[2023-01-12] MEDS: MILRINONE-D5W PMX 20 MG in DEXTROSE/WATER 1 100ML.BAG IV SCH (00:18)
[2023-01-12 00:59] LABS: Glucose,Whole Blood 164 mg/dL (70-110)
[2023-01-12 02:00] LABS: Glucose,Whole Blood 142 mg/dL (70-110)
[2023-01-12 03:03] LABS: Glucose,Whole Blood 125 mg/dL (70-110)
[2023-01-12 04:04] LABS: Glucose,Whole Blood 114 mg/dL (70-110)
[2023-01-12 04:29] LABS: Basophils % (A) 0 %; Eosinophils % (A) 0 %; Lymphocytes # (A) 0.8 k/uL (1.0-4.8); Lymphocytes % (A) 6 %; MCHC 34.4 g/dL (31.0-37.0); MCV 87.2 fL (80.0-100.0); Mean Platelet Volume 9.3; Monocytes # (A) 0.7 k/uL (0-1.0); Monocytes % (A) 5 %; Neutrophils # (A) 12.2 k/uL (1.3-7.7); Neutrophils % (A) 88 %; Platelet Count 137 k/uL (150-450); RBC 3.33 m/uL (4.30-5.90); WBC 13.9 k/uL (3.8-10.6)
[2023-01-12 04:31] LABS: Ionized Calcium 4.6 mg/dL (4.5-5.3)
[2023-01-12] MEDS: HYDROcodone/APAP 5-325MG 1 EACH TAB PO PRN ×3 (04:31→17:00)
[2023-01-12 04:38] LABS: Partial Thromboplastin Time 26.1 sec (22.0-30.0); Prothrombin Time 10.4 sec (9.0-12.0)
[2023-01-12 04:39] LABS: ALT 26 U/L (4-49); AST 66 U/L (17-59); African American GFR (CKD) >90 (>60 ml/min/1.73 sqM); Albumin 3.8 g/dL (3.5-5.0); Alkaline Phosphatase 28 U/L (38-126); Anion Gap 11 mmol/L; Blood Urea Nitrogen 9 mg/dL (9-20); Carbon Dioxide 23 mmol/L (22-30); Chloride 103 mmol/L (98-107); Glucose 113 mg/dL (74-99); Magnesium 1.9 mg/dL (1.6-2.3); Non-African American GFR(CKD) >90 (>60 ml/min/1.73 sqM); Potassium 4.6 mmol/L (3.5-5.1); Sodium 137 mmol/L (137-145); Total Bilirubin 0.6 mg/dL (0.2-1.3); Total Protein 5.7 g/dL (6.3-8.2)
[2023-01-12 04:55] LABS: Glucose,Whole Blood 153 mg/dL (70-110)
[2023-01-12] MEDS: INSULIN REGULAR 100 UNIT in SODIUM CHLORIDE 0.9% 100 ML IV SCH (04:58)
[2023-01-12] MEDS: KETOROLAC 15 MG/ML 1 ML VIAL IVP SCH ×3 (06:08→17:22)
[2023-01-12 06:18] LABS: Glucose,Whole Blood 141 mg/dL (70-110)
[2023-01-12 06:54] LABS: Glucose,Whole Blood 135 mg/dL (70-110)
[2023-01-12] MEDS ORDERED: Magnesium Replacement Protocol 1 EACH MISC MISCELLANE PRN (07:06)
[2023-01-12] MEDS: METOCLOPRAMIDE 5 MG/ML 2 ML VIAL IVP PRN ×2 (07:18)
[2023-01-12] MEDS: ALBUMIN HUMAN 5% 250 ML in EMPTY BAG 1 BAG IVPB PRN (07:21)
[2023-01-12] MEDS ORDERED: ALBUMIN HUMAN 5% 250 ML in EMPTY BAG 1 BAG IVPB STA (07:27)
[2023-01-12] MEDS: MAGNESIUM SULFATE-D5W PMX 1 GM in DEXTROSE/WATER 1 100ML.BAG IVPB ONE ×2 (07:35→07:36)
--- NOTE | 2023-01-12 08:26 | XR ---
EXAMINATION TYPE: XR chest 1V portable DATE OF EXAM: 01/12/2023 COMPARISON: 01/11/2023 HISTORY: Postop TECHNIQUE: Single frontal view of the chest is obtained. FINDINGS: [place]-Donna catheter stable. ET and NG tube have been removed. There is bilateral consolidat ion. Small bilateral pleural effusions. No overt failure or pneumothorax. Hypertrophic and degenerati ve change of the spine. IMPRESSION: Bilateral consolidation and small effusion may be on the basis of postoperative atelecta sis. Correlate clinically to exclude pneumonia.
[2023-01-12 08:33] LABS: Glucose,Whole Blood 197 mg/dL (70-110)
[2023-01-12] MEDS: IPRATROPIUM-ALBUTEROL 3 ML NEB INHALATION SCH ×4 (08:47→20:26)
[2023-01-12] MEDS ORDERED: bisacodyL 10 MG SUPP RECTAL PRN (09:00)
[2023-01-12] MEDS ORDERED: METOPROLOL TARTRATE 25 MG TAB PO SCH (09:00)
[2023-01-12] MEDS ORDERED: PANTOPRAZOLE 40 MG/10 ML VIAL IVP SCH (09:00)
[2023-01-12] MEDS ORDERED: MAGNESIUM HYDROXIDE 2,400 MG/10 ML CUP PO PRN (09:00)
[2023-01-12] MEDS ORDERED: METOPROLOL TARTRATE 12.5 MG TAB PO SCH (09:00)
[2023-01-12] MEDS: HEPARIN SODIUM,PORCINE/PF 5,000 UNIT/0.5 ML SYRINGE SQ SCH ×2 (09:11→15:29)
--- NOTE | 2023-01-12 09:13 | P.PN ---
Subjective Progress Note Date: 01/12/23 Principal diagnosis: Severe bicuspid aortic valve stenosis with preserved left ventricular systolic function. Past medical history significant for diabetes mellitus, hypertension, hyperlipidemia, is a lifetime nonsmoker, daily marijuana use and has a family history of coronary artery disease. POD #1 Aortic valve replacement using a 23 mm mechanical prosthesis, OnX valve with conform sewing ring, exclusion of the left atrial appendage using a 35 mm atriclip, intraoperative transesophageal echocardiogram and epi-aortic ultrasound. Postoperative acute blood loss anemia, expected given hemodilution and cardiopulmonary bypass Tiny right sided apical pneumothorax, expected The patient was seen and examined in follow-up today 01/12/2023 at his bedside in the intensive care unit. He was successfully extubated at 6:15 PM last evening, is currently sitting up to the bedside chair, is awake, alert, oriented 3 and is in no acute apparent distress. Oxygen saturation are 97% on 2 L nasal cannula and he is achieving 1000 mL on his incentive spirometry was encouraged. Denies any complaints of shortness of breath at this time, although is complaining of some surgical type pain to his chest tube insertion sites currently rating his pain 4-5 out of 10 on the pain scale. Primacor drip is infusing at 0.2 mcg/kg/m, right IJ Cordis and [place]-Donna catheter remains in plac e with current hemodynamic showing a cardiac output of 5.4, cardiac index of, PA pressures 31/17 and CVP 11 mmHg. Bedside telemetry is showing sinus tachycardia heart rate 101. Mediastinal chest tubes remain in place to low continuous wall suction -20 cm H2O. No air leak is present. Draining thin serosanguineous drainage with 140 mL output in the last 8 hours and 450 mL output since surgery. Laboratory and chest x-ray results reviewed, shows a tiny right sided apical pneumothorax. Objective - Vital Signs Vital signs: Vital Signs Temp 99.7 F H 01/12/23 04:00 Pulse 101 H 01/12/23 07:30 Resp 28 H 01/12/23 07:30 BP 99/71 01/12/23 04:00 Pulse Ox 96 01/12/23 07:30 FiO2 40 01/11/23 18:00 Intake & Output 01/11/23 01/12/23 01/12/23 18:59 06:59 18:59 Intake Total 240.521 9321.122 59 Output Total 3180 1025 20 Balance -2762.835 128.122 39 Weight 96.1 kg Intake: IV 360.4 1016.1 59 ACETAMINOPHEN IV (For NPO 100 ) 1,000 mg In Empty Bag 1 bag @ 400 mls/hr IVPB Q6HR HUANG Rx#:[id number] Cardiac Output (0.9 40 150 Sodium Chloride) Milrinone-D5w Pmx 20 mg 32.4 8.1 In Dextrose/Water 1 100ml .bag @ Per Protocol IV . Q0M HUANG Rx#:[id number] Pressure Bag (0.9 Sodium 36 108 9 Chloride) Sodium Chloride 0.9% 1, 200 600 50 000 ml @ 20 mls/hr IV . Q24H HUANG Rx#:[id number] ceFAZolin 2 gm In Sodium 50 Chloride 0.9% 50 ml @ 100 mls/hr IVPB Q8HR HUANG Rx# :[id number] Intake, IV Titration 56.765 137.022 Amount Clevidipine Butyrate 25 18.599 mg In Empty Bag 1 bag @ 1 MG/HR 2 mls/hr IV .Q24H HUANG Rx#:[id number] Insulin Regular 100 unit 13.265 45.829 In Sodium Chloride 0.9% 100 ml @ Per Protocol IV .Q0M HUANG Rx#:[id number] Milrinone-D5w Pmx 20 mg 72.594 In Dextrose/Water 1 100ml .bag @ Per Protocol IV . Q0M HUANG Rx#:[id number] Norepinephrine 4 mg In 11.195 Sodium Chloride 0.9% 250 ml @ 0.03 MCG/KG/MIN 10. 55 mls/hr IV .Q24H [facility]ANG Rx #:[id number] propofoL 1,000 mg In 32.305 Empty Bag 1 bag @ Titrate IV .Q0M HUANG Rx#: [id number] Output: Chest Tube Drainage 220 220 10 Chest Tube Bilateral 220 220 10 Mediastinal Urine 960 805 10 Estimated Blood Loss 1999 Other: Voiding Method Indwelling Catheter Indwelling Catheter ABP, PAP, CO, CI - Last Documented Arterial Blood Pressure 117/53 Pulmonary Artery Pressure 21/12 Cardiac Output 5.4 Cardiac Index 2.6 - Exam CONSTITUTIONAL: Sitting up to the bedside chair in the intensive care unit, appears comfortable, cooperative, no apparent acute distress. HEENT: Neck is supple, no JVD, no lymphadenopathy. Right IJ Cordis and [place]- Donna catheter in place and functioning. RESPIRATORY: Lungs sounds essentially clear throughout, diminished to his bilateral bases. Respirations are symmetrical and nonlabored. Currently on 2 L nasal cannula with oxygen saturations 97%. Able to achieve 1000 mL on his incentive spirometry. Strong cough. CARDIOVASCULAR: Regular rhythm and rate. S1 and S2 present, negative for S3, gallop or murmur. Sternum is stable. Palpable peripheral pulses bilaterally, no edema to his bilateral lower extremities. No calf pain or tenderness noted. Heart hugger in place with patient demonstrating appropriate use. Knee-high DONNA hose and sequential compression devices in place to his bilateral lower extremities. GASTROINTESTINAL: Abdomen soft, nontender, nondistended. Hypoactive bowel sounds present 4 quadrants. Tolerating diet. Passing flatus. No guarding or rigidity. GENITOURINARY: Huber present draining clear, yellow urine. Output 395 mL in the last 8 hours INTEGUMENTARY: Skin is warm and dry with no evidence of clubbing or cyanosis. Midline sternal incision clean dry and well approximated, covered with dry intact dressing. NEUROLOGIC: Cranial nerves II through XII intact. No focal deficits. MUSKULOSKELETAL: Able to move all extremities, strength equal bilaterally, generalized weakness. PSYCHIATRIC: Alert and oriented to person place and time, appropriate affect, intact judgment and insight. INVASIVE LINES AND TUBES: Mediastinal chest tubes present and connected to low continuous wall suction, no air leaks present. Mediastinal tubes with 140 mL of thin serosanguineous drainage overnight, 450 mL output since surgery. Atrial and ventricular epicardial pacemaker wires present, connected to generator, VVI backup rate 50 bpm. Right internal jugular Pocatello/Cordis, right radial arterial line present. Last CO 5.4, CI 2.6, PA and CVP 11 mmHg. - Allied health notes Allied health notes reviewed: nursing - Labs CBC & Chem 7: 01/12/23 04:03 01/12/23 04:03 Labs: Abnormal Lab Results - Last 24 Hours (Table) 01/05/23 01/11/23 01/11/23 Range/Units 11:14 14:30 14:30 WBC 13.8 H (3.8-10.6) k/uL RBC 3.21 L (4.30-5.90) m/uL Hgb 9.9 L D (13.0-17.5) gm/dL Hct 28.8 L (39.0-53.0) % Plt Count 124 L (150-450) k/uL Neutrophils # 11.4 H (1.3-7.7) k/uL Lymphocytes # (1.0-4.8) k/uL PT 12.7 H (9.0-12.0) sec INR 1.2 H (<1.2) ABG pH (7.35-7.45) ABG pCO2 (35-45) mmHg ABG pO2 (83-108) mmHg ABG Total CO2 (19-24) mmol/L ABG O2 Saturation (94-97) % BUN (9-20) mg/dL Creatinine (0.66-1.25) mg/dL Glucose (74-99) mg/dL POC Glucose (mg/dL) (70-110) mg/dL Calcium (8.4-10.2) mg/dL AST (17-59) U/L Alkaline Phosphatase (38-126) U/L Total Protein (6.3-8.2) g/dL Albumin (3.5-5.0) g/dL Crossmatch See Detail 01/11/23 01/11/23 01/11/23 Range/Units 14:30 14:47 15:21 WBC (3.8-10.6) k/uL RBC (4.30-5.90) m/uL Hgb (13.0-17.5) gm/dL Hct (39.0-53.0) % Plt Count (150-450) k/uL Neutrophils # (1.3-7.7) k/uL Lymphocytes # (1.0-4.8) k/uL PT (9.0-12.0) sec INR (<1.2) ABG pH (7.35-7.45) ABG pCO2 (35-45) mmHg ABG pO2 351 H (83-108) mmHg ABG Total CO2 25 H (19-24) mmol/L ABG O2 Saturation 100.0 H (94-97) % BUN 8 L (9-20) mg/dL Creatinine 0.61 L (0.66-1.25) mg/dL Glucose 162 H (74-99) mg/dL POC Glucose (mg/dL) 153 H (70-110) mg/dL Calcium 7.8 L (8.4-10.2) mg/dL AST (17-59) U/L Alkaline Phosphatase (38-126) U/L Total Protein 5.0 L (6.3-8.2) g/dL Albumin 3.2 L (3.5-5.0) g/dL Crossmatch 01/11/23 01/11/23 01/11/23 Range/Units 15:49 17:08 17:35 WBC 13.8 H (3.8-10.6) k/uL RBC 3.22 L (4.30-5.90) m/uL Hgb 9.9 L (13.0-17.5) gm/dL Hct 29.1 L (39.0-53.0) % Plt Count 134 L (150-450) k/uL Neutrophils # 12.2 H (1.3-7.7) k/uL Lymphocytes # 0.8 L (1.0-4.8) k/uL PT (9.0-12.0) sec INR (<1.2) ABG pH (7.35-7.45) ABG pCO2 (35-45) mmHg ABG pO2 (83-108) mmHg ABG Total CO2 (19-24) mmol/L ABG O2 Saturation (94-97) % BUN (9-20) mg/dL Creatinine (0.66-1.25) mg/dL Glucose (74-99) mg/dL POC Glucose (mg/dL) 137 H 148 H (70-110) mg/dL Calcium (8.4-10.2) mg/dL AST (17-59) U/L Alkaline Phosphatase (38-126) U/L Total Protein (6.3-8.2) g/dL Albumin (3.5-5.0) g/dL Crossmatch 01/11/23 01/11/23 01/11/23 Range/Units 17:56 18:21 19:58 WBC (3.8-10.6) k/uL RBC (4.30-5.90) m/uL Hgb (13.0-17.5) gm/dL Hct (39.0-53.0) % Plt Count (150-450) k/uL Neutrophils # (1.3-7.7) k/uL Lymphocytes # (1.0-4.8) k/uL PT (9.0-12.0) sec INR (<1.2) ABG pH 7.32 L (7.35-7.45) ABG pCO2 49 H (35-45) mmHg ABG pO2 110 H (83-108) mmHg ABG Total CO2 27 H (19-24) mmol/L ABG O2 Saturation 98.8 H (94-97) % BUN (9-20) mg/dL Creatinine (0.66-1.25) mg/dL Glucose (74-99) mg/dL POC Glucose (mg/dL) 132 H 180 H (70-110) mg/dL Calcium (8.4-10.2) mg/dL AST (17-59) U/L Alkaline Phosphatase (38-126) U/L Total Protein (6.3-8.2) g/dL Albumin (3.5-5.0) g/dL Crossmatch 01/11/23 01/11/23 01/11/23 Range/Units 20:16 20:54 22:06 WBC 13.2 H (3.8-10.6) k/uL RBC 3.31 L (4.30-5.90) m/uL Hgb 10.2 L (13.0-17.5) gm/dL Hct 29.6 L (39.0-53.0) % Plt Count 119 L (150-450) k/uL Neutrophils # 11.9 H (1.3-7.7) k/uL Lymphocytes # 0.5 L (1.0-4.8) k/uL PT (9.0-12.0) sec INR (<1.2) ABG pH (7.35-7.45) ABG pCO2 (35-45) mmHg ABG pO2 (83-108) mmHg ABG Total CO2 (19-24) mmol/L ABG O2 Saturation (94-97) % BUN (9-20) mg/dL Creatinine (0.66-1.25) mg/dL Glucose (74-99) mg/dL POC Glucose (mg/dL) 167 H 141 H (70-110) mg/dL Calcium (8.4-10.2) mg/dL AST (17-59) U/L Alkaline Phosphatase (38-126) U/L Total Protein (6.3-8.2) g/dL Albumin (3.5-5.0) g/dL Crossmatch 01/11/23 01/12/23 01/12/23 Range/Units 23:00 00:13 00:56 WBC (3.8-10.6) k/uL RBC (4.30-5.90) m/uL Hgb (13.0-17.5) gm/dL Hct (39.0-53.0) % Plt Count (150-450) k/uL Neutrophils # (1.3-7.7) k/uL Lymphocytes # (1.0-4.8) k/uL PT (9.0-12.0) sec INR (<1.2) ABG pH (7.35-7.45) ABG pCO2 (35-45) mmHg ABG pO2 (83-108) mmHg ABG Total CO2 (19-24) mmol/L ABG O2 Saturation (94-97) % BUN (9-20) mg/dL Creatinine (0.66-1.25) mg/dL Glucose (74-99) mg/dL POC Glucose (mg/dL) 137 H 151 H 164 H (70-110) mg/dL Calcium (8.4-10.2) mg/dL AST (17-59) U/L Alkaline Phosphatase (38-126) U/L Total Protein (6.3-8.2) g/dL Albumin (3.5-5.0) g/dL Crossmatch 01/12/23 01/12/23 01/12/23 Range/Units 01:58 03:00 04:02 WBC (3.8-10.6) k/uL RBC (4.30-5.90) m/uL Hgb (13.0-17.5) gm/dL Hct (39.0-53.0) % Plt Count (150-450) k/uL Neutrophils # (1.3-7.7) k/uL Lymphocytes # (1.0-4.8) k/uL PT (9.0-12.0) sec INR (<1.2) ABG pH (7.35-7.45) ABG pCO2 (35-45) mmHg ABG pO2 (83-108) mmHg ABG Total CO2 (19-24) mmol/L ABG O2 Saturation (94-97) % BUN (9-20) mg/dL Creatinine (0.66-1.25) mg/dL Glucose (74-99) mg/dL POC Glucose (mg/dL) 142 H 125 H 114 H (70-110) mg/dL Calcium (8.4-10.2) mg/dL AST (17-59) U/L Alkaline Phosphatase (38-126) U/L Total Protein (6.3-8.2) g/dL Albumin (3.5-5.0) g/dL Crossmatch 01/12/23 01/12/23 01/12/23 Range/Units 04:03 04:03 04:54 WBC 13.9 H (3.8-10.6) k/uL RBC 3.33 L (4.30-5.90) m/uL Hgb 10.0 L (13.0-17.5) gm/dL Hct 29.0 L (39.0-53.0) % Plt Count 137 L (150-450) k/uL Neutrophils # 12.2 H (1.3-7.7) k/uL Lymphocytes # 0.8 L (1.0-4.8) k/uL PT (9.0-12.0) sec INR (<1.2) ABG pH (7.35-7.45) ABG pCO2 (35-45) mmHg ABG pO2 (83-108) mmHg ABG Total CO2 (19-24) mmol/L ABG O2 Saturation (94-97) % BUN (9-20) mg/dL Creatinine 0.62 L (0.66-1.25) mg/dL Glucose 113 H (74-99) mg/dL POC Glucose (mg/dL) 153 H (70-110) mg/dL Calcium 8.0 L (8.4-10.2) mg/dL AST 66 H (17-59) U/L Alkaline Phosphatase 28 L (38-126) U/L Total Protein 5.7 L (6.3-8.2) g/dL Albumin (3.5-5.0) g/dL Crossmatch 01/12/23 01/12/23 01/12/23 Range/Units 06:16 06:52 08:32 WBC (3.8-10.6) k/uL RBC (4.30-5.90) m/uL Hgb (13.0-17.5) gm/dL Hct (39.0-53.0) % Plt Count (150-450) k/uL Neutrophils # (1.3-7.7) k/uL Lymphocytes # (1.0-4.8) k/uL PT (9.0-12.0) sec INR (<1.2) ABG pH (7.35-7.45) ABG pCO2 (35-45) mmHg ABG pO2 (83-108) mmHg ABG Total CO2 (19-24) mmol/L ABG O2 Saturation (94-97) % BUN (9-20) mg/dL Creatinine (0.66-1.25) mg/dL Glucose (74-99) mg/dL POC Glucose (mg/dL) 141 H 135 H 197 H (70-110) mg/dL Calcium (8.4-10.2) mg/dL AST (17-59) U/L Alkaline Phosphatase (38-126) U/L Total Protein (6.3-8.2) g/dL Albumin (3.5-5.0) g/dL Crossmatch - Imaging and Cardiology Chest x-ray: report reviewed, image reviewed Assessment and Plan Assessment: Severe bicuspid aortic valve stenosis with preserved LV systolic function, status post aortic valve replacement using a 23 mm On-X mechanical prosthesis Diabetes mellitus type 2 Hypertension Hyperlipidemia Family history of coronary artery disease Daily marijuana use Lifetime nonsmoker Postoperative acute blood loss anemia, expected given hemodilution and cardiopulmonary bypass Tiny right sided apical pneumothorax, expected Plan: Continue to maximize medical therapy with aspirin, Plavix, statin, and beta isabel. Will start metoprolol tartrate 25 mg by mouth twice a day. Will wean Primacor as tolerated based on cardiac index, SVR. Turn Primacor down to 0.01 mcg/kg/m. once the Primacor has been weaned off we will remove his right IJ [place]-Donna catheter and keep his right IJ Cordis in place with continuous CVP monitoring. Continue amiodarone 400 mg by mouth twice a day for A. fib prophylaxis. Wean O2 as tolerated. Encourage incentive spirometry use 10 times every hour while awake. Bronchodilators per pulmonology. Increase activity as tolerated. PT/OT/cardiac rehab consulted. Will monitor daily labs and chest x-rays. Electrolyte replacement per protocol. Ferrous sulfate/vitamin C added. Insulin management per internal medicine. Hemoglobin A1c preoperative 7.0%, patient is a diabetic, keep tight blood sugar control to promote sternal wound healing. GI/DVT prophylaxis. Pain control with current medication regimen. Continue chest tubes for another 24 hours. Monitor for air leak. Continue to monitor chest x-ray for resolution of right apical pneumothorax. Continue Huber catheter for another 24 hours for strict accurate intake and output. Daily weights. Albumin 5% 250 mL IV piggyback 1 now. Once the patient's pacemaker wires have been removed he will be started on Coumadin with a goal INR for the first 3 months to be 2.0-3.0, and after the 3 months goal rate will be 1.5-2.0. More recommendations to follow based on patient's clinical course. Time with Patient: Greater than 30
[2023-01-12] MEDS: AMIODARONE 200 MG TAB PO SCH ×2 (09:19→20:19)
[2023-01-12] MEDS: CLOPIDOGREL 75 MG TAB PO SCH (09:21)
[2023-01-12] MEDS: ASPIRIN 325 MG TAB PO SCH (09:21)
[2023-01-12] MEDS: ATORVASTATIN 40 MG TAB PO SCH (09:22)
[2023-01-12] MEDS: MUPIROCIN 2% OINT 22 GM TUBE NASAL SCH ×2 (09:26→20:20)
[2023-01-12 09:50] LABS: Glucose,Whole Blood 144 mg/dL (70-110)
--- NOTE | 2023-01-12 11:07 | P.CONS ---
History of Present Illness - Reason for Consult Consult date: 01/12/23 Medical management Requesting physician: Hung Joseph - Chief Complaint Aortic valve replacement - History of Present Illness This 42-year-old male patient who presented for an elective aortic valve replacement surgery 01/11/2023 due to severe bicuspid aortic valve stenosis with preserved left ventricular systolic function. Patient has past medical history of diabetes mellitus maintained on oral agents metformin and glipizide, hypertension, hyperlipidemia and marijuana use. Patient is currently postop day 1 resting comfortably in chair in intensive care unit. Patient maintained on Primacor and insulin drip. Chest tube and Cordis line in place. Plans to re move right IJ Marshall per cardiovascular surgery, this time patient denies chest pain or shortness breath. Patient denies nausea vomiting or diarrhea. Patient denies any urinary burning or frequency. Review of Systems Please refer to HPI otherwise unremarkable Past Medical History Past Medical History: Diabetes Mellitus, Hyperlipidemia, Hypertension Additional Past Medical History / Comment(s): SOB w/exertion History of Any Multi-Drug Resistant Organisms: None Reported Past Surgical History: Heart Catheterization, Hernia Repair, Orthopedic Surgery Additional Past Surgical History / Comment(s): pylonoidal cyst removed, right shoulder arthroscopic, vasectomy Past Anesthesia/Blood Transfusion Reactions: No Reported Reaction Additional Past Anesthesia/Blood Transfusion Reaction / Comm: wakes up quickly after anesthesia Smoking Status: Never smoker - Past Family History Mother Family Medical History: No Reported History Medications and Allergies Home Medications Medication Instructions Recorded Confirmed Type Glimepiride [Amaryl] 2 mg PO BID 05/01/19 01/05/23 History metFORMIN HCL 500 mg PO BID 05/01/19 01/05/23 History Rosuvastatin [Crestor] 10 mg PO DAILY 12/08/22 01/05/23 History lisinopriL [Zestril] 10 mg PO DAILY 12/08/22 01/05/23 History Mupirocin [Mupirocin 2%] 1 applic NASAL BID #1 tub 01/05/23 01/11/23 Rx Aspirin 325 mg PO DAILY 01/11/23 01/11/23 History Allergies Allergy/AdvReac Type Severity Reaction Status Date / Time No Known Allergies Allergy Verified 01/11/23 05:55 Physical Exam Vitals: Vital Signs Temp Pulse Resp BP Pulse Ox FiO2 01/12/23 10:00 80 18 95 01/12/23 09:30 89 19 98 01/12/23 09:02 84 01/12/23 09:00 91 19 98 01/12/23 08:47 94 96 01/12/23 08:30 98 18 95 01/12/23 08:00 99.3 F 92 19 97 01/12/23 07:30 101 H 28 H 96 01/12/23 07:00 84 19 97 01/12/23 06:30 87 18 96 01/12/23 06:00 90 19 96 01/12/23 05:30 97 27 H 97 01/12/23 05:00 86 23 94 L 01/12/23 04:30 83 18 94 L 01/12/23 04:00 99.7 F H 82 17 99/71 95 01/12/23 03:31 82 17 99/71 95 01/12/23 03:00 82 16 96 01/12/23 02:30 78 15 98 01/12/23 02:00 76 18 98 01/12/23 01:30 78 14 94 L 01/12/23 01:00 80 16 95 01/12/23 00:30 88 14 94 L 01/12/23 00:27 92 17 94 L 01/12/23 00:00 99.1 F 106 H 23 91 L 01/11/23 23:30 106 H 27 H 99/71 93 L 01/11/23 23:00 112 H 15 93 L 01/11/23 22:30 101 H 15 96 01/11/23 22:00 106 H 14 95 01/11/23 21:30 104 H 16 97 01/11/23 21:02 105 H 01/11/23 21:00 105 H 16 98 01/11/23 20:48 109 H 01/11/23 20:30 106 H 15 95 01/11/23 20:00 98.8 F 105 H 13 93 L 01/11/23 19:00 102 H 15 94 L 01/11/23 18:30 107 H 19 97 01/11/23 18:15 121 H 24 96 01/11/23 18:00 93 11 L 96 40 01/11/23 17:45 96 12 96 01/11/23 17:30 93 12 98 01/11/23 17:15 95 12 97 01/11/23 17:00 100 10 L 97 40 01/11/23 16:45 85 14 97 01/11/23 16:30 85 13 97 01/11/23 16:15 85 20 97 01/11/23 16:00 84 20 96 40 01/11/23 15:45 85 20 98 01/11/23 15:42 84 01/11/23 15:40 82 20 99 01/11/23 15:31 83 01/11/23 15:30 96 14 98 40 01/11/23 15:29 40 01/11/23 15:20 82 20 100 01/11/23 15:15 20 100 01/11/23 15:10 79 20 100 01/11/23 15:00 80 20 99 100 01/11/23 14:50 78 20 100 01/11/23 14:40 79 20 100 100 01/11/23 14:30 37.5 F L 75 12 01/11/23 14:29 100 Intake and Output 01/11/23 01/12/23 01/12/23 22:59 06:59 14:59 Intake Total 769.699 739.158 719.760 Output Total 1120 535 200 Balance -350.301 204.158 519.760 Intake: IV 642.5 682 347 ACETAMINOPHEN IV (For NPO 100 ) 1,000 mg In Empty Bag 1 bag @ 400 mls/hr IVPB Q6HR [facility] Rx#:[id number] Cardiac Output (0.9 130 60 20 Sodium Chloride) Milrinone-D5w Pmx 20 mg 40.5 In Dextrose/Water 1 100ml .bag @ Per Protocol IV . Q0M [facility]ANG Rx#:[id number] Pressure Bag (0.9 Sodium 72 72 27 Chloride) Sodium Chloride 0.9% 1, 400 400 200 000 ml @ 20 mls/hr IV . Q24H [facility] Rx#:[id number] ceFAZolin 2 gm In Sodium 50 100 Chloride 0.9% 50 ml @ 100 mls/hr IVPB Q8HR [facility] Rx# :[id number] Intake, IV Titration 127.199 57.158 12.760 Amount Clevidipine Butyrate 25 10.700 7.899 mg In Empty Bag 1 bag @ 1 MG/HR 2 mls/hr IV .Q24H [facility]ANG Rx#:[id number] Insulin Regular 100 unit 25.360 31.630 12.760 In Sodium Chloride 0.9% 100 ml @ Per Protocol IV .Q0M [facility]ANG Rx#:[id number] Milrinone-D5w Pmx 20 mg 54.965 17.629 In Dextrose/Water 1 100ml .bag @ Per Protocol IV . Q0M [facility]ANG Rx#:[id number] Norepinephrine 4 mg In 3.869 Sodium Chloride 0.9% 250 ml @ 0.03 MCG/KG/MIN 10. 55 mls/hr IV .Q24H [facility] Rx #:[id number] propofoL 1,000 mg In 32.305 Empty Bag 1 bag @ Titrate IV .Q0M HUANG Rx#: [id number] Tube Feeding 360 Output: Chest Tube Drainage 300 140 80 Chest Tube Bilateral 300 140 80 Mediastinal Urine 820 395 120 Other: Voiding Method Indwelling Catheter Indwelling Catheter Weight 96.1 kg ABP, PAP, CO, CI - Last 8 Hours Arterial Blood Pressure 92/60 Arterial Blood Pressure 122/70 Arterial Blood Pressure 126/61 Arterial Blood Pressure 107/49 Arterial Blood Pressure 108/50 Arterial Blood Pressure 117/53 Arterial Blood Pressure 120/53 Arterial Blood Pressure 132/55 Arterial Blood Pressure 131/56 Arterial Blood Pressure 128/48 Arterial Blood Pressure 135/56 Arterial Blood Pressure 122/59 Arterial Blood Pressure 124/57 Arterial Blood Pressure 127/59 Pulmonary Artery Pressure 29/16 Pulmonary Artery Pressure 25/17 Pulmonary Artery Pressure 24/17 Pulmonary Artery Pressure 20/14 Pulmonary Artery Pressure 22/11 Pulmonary Artery Pressure 21/12 Pulmonary Artery Pressure 17/7 Pulmonary Artery Pressure 18/7 Pulmonary Artery Pressure 18/7 Pulmonary Artery Pressure 19/6 Pulmonary Artery Pressure 31/17 Pulmonary Artery Pressure 28/16 Pulmonary Artery Pressure 27/14 Pulmonary Artery Pressure 28/15 Cardiac Output 5.1 Cardiac Output 5.1 Cardiac Output 5.1 Cardiac Output 5.4 Cardiac Output 4.7 Cardiac Index 2.5 Cardiac Index 2.5 Cardiac Index 2.5 Cardiac Index 2.6 Cardiac Index 2.3 Head normocephalic Neck supple Lungs incision dressing clean dry and intact chest tube in place Heart regular rate and rhythm S1-S2, no rub or gallop Abdomen is soft nontender nondistended positive bowel sounds no hepatosplenomegaly Extremities no edema Neuro alert and orientated to 3 Results CBC & Chem 7: 01/12/23 04:03 01/12/23 04:03 Labs: Abnormal Lab Results - Last 24 Hours (Table) 01/05/23 01/11/23 01/11/23 Range/Units 11:14 14:30 14:30 WBC 13.8 H (3.8-10.6) k/uL RBC 3.21 L (4.30-5.90) m/uL Hgb 9.9 L D (13.0-17.5) gm/dL Hct 28.8 L (39.0-53.0) % Plt Count 124 L (150-450) k/uL Neutrophils # 11.4 H (1.3-7.7) k/uL Lymphocytes # (1.0-4.8) k/uL PT 12.7 H (9.0-12.0) sec INR 1.2 H (<1.2) ABG pH (7.35-7.45) ABG pCO2 (35-45) mmHg ABG pO2 (83-108) mmHg ABG Total CO2 (19-24) mmol/L ABG O2 Saturation (94-97) % BUN (9-20) mg/dL Creatinine (0.66-1.25) mg/dL Glucose (74-99) mg/dL POC Glucose (mg/dL) (70-110) mg/dL Calcium (8.4-10.2) mg/dL AST (17-59) U/L Alkaline Phosphatase (38-126) U/L Total Protein (6.3-8.2) g/dL Albumin (3.5-5.0) g/dL Crossmatch See Detail 01/11/23 01/11/23 01/11/23 Range/Units 14:30 14:47 15:21 WBC (3.8-10.6) k/uL RBC (4.30-5.90) m/uL Hgb (13.0-17.5) gm/dL Hct (39.0-53.0) % Plt Count (150-450) k/uL Neutrophils # (1.3-7.7) k/uL Lymphocytes # (1.0-4.8) k/uL PT (9.0-12.0) sec INR (<1.2) ABG pH (7.35-7.45) ABG pCO2 (35-45) mmHg ABG pO2 351 H (83-108) mmHg ABG Total CO2 25 H (19-24) mmol/L ABG O2 Saturation 100.0 H (94-97) % BUN 8 L (9-20) mg/dL Creatinine 0.61 L (0.66-1.25) mg/dL Glucose 162 H (74-99) mg/dL POC Glucose (mg/dL) 153 H (70-110) mg/dL Calcium 7.8 L (8.4-10.2) mg/dL AST (17-59) U/L Alkaline Phosphatase (38-126) U/L Total Protein 5.0 L (6.3-8.2) g/dL Albumin 3.2 L (3.5-5.0) g/dL Crossmatch 01/11/23 01/11/23 01/11/23 Range/Units 15:49 17:08 17:35 WBC 13.8 H (3.8-10.6) k/uL RBC 3.22 L (4.30-5.90) m/uL Hgb 9.9 L (13.0-17.5) gm/dL Hct 29.1 L (39.0-53.0) % Plt Count 134 L (150-450) k/uL Neutrophils # 12.2 H (1.3-7.7) k/uL Lymphocytes # 0.8 L (1.0-4.8) k/uL PT (9.0-12.0) sec INR (<1.2) ABG pH (7.35-7.45) ABG pCO2 (35-45) mmHg ABG pO2 (83-108) mmHg ABG Total CO2 (19-24) mmol/L ABG O2 Saturation (94-97) % BUN (9-20) mg/dL Creatinine (0.66-1.25) mg/dL Glucose (74-99) mg/dL POC Glucose (mg/dL) 137 H 148 H (70-110) mg/dL Calcium (8.4-10.2) mg/dL AST (17-59) U/L Alkaline Phosphatase (38-126) U/L Total Protein (6.3-8.2) g/dL Albumin (3.5-5.0) g/dL Crossmatch 01/11/23 01/11/23 01/11/23 Range/Units 17:56 18:21 19:58 WBC (3.8-10.6) k/uL RBC (4.30-5.90) m/uL Hgb (13.0-17.5) gm/dL Hct (39.0-53.0) % Plt Count (150-450) k/uL Neutrophils # (1.3-7.7) k/uL Lymphocytes # (1.0-4.8) k/uL PT (9.0-12.0) sec INR (<1.2) ABG pH 7.32 L (7.35-7.45) ABG pCO2 49 H (35-45) mmHg ABG pO2 110 H (83-108) mmHg ABG Total CO2 27 H (19-24) mmol/L ABG O2 Saturation 98.8 H (94-97) % BUN (9-20) mg/dL Creatinine (0.66-1.25) mg/dL Glucose (74-99) mg/dL POC Glucose (mg/dL) 132 H 180 H (70-110) mg/dL Calcium (8.4-10.2) mg/dL AST (17-59) U/L Alkaline Phosphatase (38-126) U/L Total Protein (6.3-8.2) g/dL Albumin (3.5-5.0) g/dL Crossmatch 01/11/23 01/11/23 01/11/23 Range/Units 20:16 20:54 22:06 WBC 13.2 H (3.8-10.6) k/uL RBC 3.31 L (4.30-5.90) m/uL Hgb 10.2 L (13.0-17.5) gm/dL Hct 29.6 L (39.0-53.0) % Plt Count 119 L (150-450) k/uL Neutrophils # 11.9 H (1.3-7.7) k/uL Lymphocytes # 0.5 L (1.0-4.8) k/uL PT (9.0-12.0) sec INR (<1.2) ABG pH (7.35-7.45) ABG pCO2 (35-45) mmHg ABG pO2 (83-108) mmHg ABG Total CO2 (19-24) mmol/L ABG O2 Saturation (94-97) % BUN (9-20) mg/dL Creatinine (0.66-1.25) mg/dL Glucose (74-99) mg/dL POC Glucose (mg/dL) 167 H 141 H (70-110) mg/dL Calcium (8.4-10.2) mg/dL AST (17-59) U/L Alkaline Phosphatase (38-126) U/L Total Protein (6.3-8.2) g/dL Albumin (3.5-5.0) g/dL Crossmatch 01/11/23 01/12/23 01/12/23 Range/Units 23:00 00:13 00:56 WBC (3.8-10.6) k/uL RBC (4.30-5.90) m/uL Hgb (13.0-17.5) gm/dL Hct (39.0-53.0) % Plt Count (150-450) k/uL Neutrophils # (1.3-7.7) k/uL Lymphocytes # (1.0-4.8) k/uL PT (9.0-12.0) sec INR (<1.2) ABG pH (7.35-7.45) ABG pCO2 (35-45) mmHg ABG pO2 (83-108) mmHg ABG Total CO2 (19-24) mmol/L ABG O2 Saturation (94-97) % BUN (9-20) mg/dL Creatinine (0.66-1.25) mg/dL Glucose (74-99) mg/dL POC Glucose (mg/dL) 137 H 151 H 164 H (70-110) mg/dL Calcium (8.4-10.2) mg/dL AST (17-59) U/L Alkaline Phosphatase (38-126) U/L Total Protein (6.3-8.2) g/dL Albumin (3.5-5.0) g/dL Crossmatch 01/12/23 01/12/23 01/12/23 Range/Units 01:58 03:00 04:02 WBC (3.8-10.6) k/uL RBC (4.30-5.90) m/uL Hgb (13.0-17.5) gm/dL Hct (39.0-53.0) % Plt Count (150-450) k/uL Neutrophils # (1.3-7.7) k/uL Lymphocytes # (1.0-4.8) k/uL PT (9.0-12.0) sec INR (<1.2) ABG pH (7.35-7.45) ABG pCO2 (35-45) mmHg ABG pO2 (83-108) mmHg ABG Total CO2 (19-24) mmol/L ABG O2 Saturation (94-97) % BUN (9-20) mg/dL Creatinine (0.66-1.25) mg/dL Glucose (74-99) mg/dL POC Glucose (mg/dL) 142 H 125 H 114 H (70-110) mg/dL Calcium (8.4-10.2) mg/dL AST (17-59) U/L Alkaline Phosphatase (38-126) U/L Total Protein (6.3-8.2) g/dL Albumin (3.5-5.0) g/dL Crossmatch 01/12/23 01/12/23 01/12/23 Range/Units 04:03 04:03 04:54 WBC 13.9 H (3.8-10.6) k/uL RBC 3.33 L (4.30-5.90) m/uL Hgb 10.0 L (13.0-17.5) gm/dL Hct 29.0 L (39.0-53.0) % Plt Count 137 L (150-450) k/uL Neutrophils # 12.2 H (1.3-7.7) k/uL Lymphocytes # 0.8 L (1.0-4.8) k/uL PT (9.0-12.0) sec INR (<1.2) ABG pH (7.35-7.45) ABG pCO2 (35-45) mmHg ABG pO2 (83-108) mmHg ABG Total CO2 (19-24) mmol/L ABG O2 Saturation (94-97) % BUN (9-20) mg/dL Creatinine 0.62 L (0.66-1.25) mg/dL Glucose 113 H (74-99) mg/dL POC Glucose (mg/dL) 153 H (70-110) mg/dL Calcium 8.0 L (8.4-10.2) mg/dL AST 66 H (17-59) U/L Alkaline Phosphatase 28 L (38-126) U/L Total Protein 5.7 L (6.3-8.2) g/dL Albumin (3.5-5.0) g/dL Crossmatch 01/12/23 01/12/23 01/12/23 Range/Units 06:16 06:52 08:32 WBC (3.8-10.6) k/uL RBC (4.30-5.90) m/uL Hgb (13.0-17.5) gm/dL Hct (39.0-53.0) % Plt Count (150-450) k/uL Neutrophils # (1.3-7.7) k/uL Lymphocytes # (1.0-4.8) k/uL PT (9.0-12.0) sec INR (<1.2) ABG pH (7.35-7.45) ABG pCO2 (35-45) mmHg ABG pO2 (83-108) mmHg ABG Total CO2 (19-24) mmol/L ABG O2 Saturation (94-97) % BUN (9-20) mg/dL Creatinine (0.66-1.25) mg/dL Glucose (74-99) mg/dL POC Glucose (mg/dL) 141 H 135 H 197 H (70-110) mg/dL Calcium (8.4-10.2) mg/dL AST (17-59) U/L Alkaline Phosphatase (38-126) U/L Total Protein (6.3-8.2) g/dL Albumin (3.5-5.0) g/dL Crossmatch 01/12/23 Range/Units 09:38 WBC (3.8-10.6) k/uL RBC (4.30-5.90) m/uL Hgb (13.0-17.5) gm/dL Hct (39.0-53.0) % Plt Count (150-450) k/uL Neutrophils # (1.3-7.7) k/uL Lymphocytes # (1.0-4.8) k/uL PT (9.0-12.0) sec INR (<1.2) ABG pH (7.35-7.45) ABG pCO2 (35-45) mmHg ABG pO2 (83-108) mmHg ABG Total CO2 (19-24) mmol/L ABG O2 Saturation (94-97) % BUN (9-20) mg/dL Creatinine (0.66-1.25) mg/dL Glucose (74-99) mg/dL POC Glucose (mg/dL) 144 H (70-110) mg/dL Calcium (8.4-10.2) mg/dL AST (17-59) U/L Alkaline Phosphatase (38-126) U/L Total Protein (6.3-8.2) g/dL Albumin (3.5-5.0) g/dL Crossmatch Assessment and Plan Assessment: 1. Severe bicuspid aortic valve stenosis status post aortic valve replacement on 01/11/[address] Joseph 2. Diabetes mellitus type 2 patient maintained on oral agents at home. Insulin drip ordered postoperatively 3. History of essential hypertension 4. History of hyperlipidemia 5. Family history of coronary artery disease 6. Daily marijuana use At this time patient maintained in the intensive care unit Chest tube in place Maintained on insulin drip Thank you for this consultation we'll continue to follow patient closely throughout stay Time with Patient: Greater than 30 (Greater than 60% of the total time spent in counseling and coordination of care)
[2023-01-12 11:22] LABS: Glucose,Whole Blood 115 mg/dL (70-110)
[2023-01-12 12:10] LABS: Glucose,Whole Blood 119 mg/dL (70-110)
[2023-01-12] MEDS: FERROUS SULFATE 325 MG TAB PO SCH (12:56)
[2023-01-12] MEDS: ASCORBIC ACID 500 MG TAB PO SCH (12:56)
[2023-01-12 13:20] LABS: Glucose,Whole Blood 241 mg/dL (70-110)
[2023-01-12] MEDS: SODIUM CHLORIDE 0.9% 1,000 ML IV SCH (14:00)
[2023-01-12 14:13] LABS: Glucose,Whole Blood 164 mg/dL (70-110)
--- NOTE | 2023-01-12 14:34 | P.PN ---
Subjective Progress Note Date: 01/12/23 Principal diagnosis: Status post aortic valve replacement postoperative day #1 this is a 42-year-old white male, primarily a patient of Dr. Segundo, patient was referred recently to cardiology, patient developed history of heart murmur for many years. However recently the patient has been complaining of weakness fatigue and some shortness of breath on exertion, underwent further cardiac workup, he was found to have severe aortic stenosis, left ventricular hypertrophy, no previous history no chest pain, but he had intermittent episodes of palpitations. Patient is known to have history of type 2 diabetes without complications, hypertension, dyslipidemia, and strong family history of coronary artery disease.recent cardiac catheterizationshowed severe bicuspid aortic valve stenosis and mild nonocclusive coronary artery disease. Hence the patient was referred for aortic valve replacement. This was done today by Dr. Joseph, patient is now in the ICU on mechanical ventilation, and this consult was initiatedpatient is maintained ontidal volume of tidal volume of 500,assist control rate of 20, PEEP of 8 and FiO2 100%.ABG showed a pO2 of 351 pCO2 44 pH of 7.35, hence I cut down the FiO2 down to 40%.chest x-ray showed no evidence of active disease. Adequate placement of endotracheal tube, lines, and mediastinal chest tube. Patient is sedated, on propofol, he is also on milrinone, and he seems to be hemodynamically stable at this point. Reevaluated today on 01/12/2023, patient is now postoperative day #1, he is status post aortic valve replacement using a 23 mm mechanical prosthesis. Patient was extubated uneventfully a few hours after he arrived to the ICU. As a matter of fact he was extubated at 6:15 PM last evening. Today the patient is in no distress, he is on 2 L nasal cannula saturation 97%, denies any specific complaints. Not requiring any drips at this point except insulin drip for his elevated blood sugar. Hemodynamic showed cardiac output 5.4, pulmonary artery pressure 31/17 CVP of 11. Chest tubes were noted chest x-ray was noted, small tiny right apical pneumothorax is noted. Right-sided chest tube remains in place, no megaly Objective - Vital Signs Vital signs: Vital Signs Temp 99.0 F 01/12/23 12:00 Pulse 104 H 01/12/23 14:00 Resp 12 01/12/23 14:00 BP 93/66 01/12/23 14:00 Pulse Ox 94 L 01/12/23 14:00 FiO2 40 01/11/23 18:00 Intake & Output 01/11/23 01/12/23 01/12/23 18:59 06:59 18:59 Intake Total 156.326 6264.122 958.005 Output Total 3180 1025 335 Balance -2762.835 128.122 623.005 Weight 96.1 kg 96.1 kg Intake: IV 360.4 1016.1 523 ACETAMINOPHEN IV (For NPO 100 ) 1,000 mg In Empty Bag 1 bag @ 400 mls/hr IVPB Q6HR [facility] Rx#:[id number] Cardiac Output (0.9 40 150 50 Sodium Chloride) Milrinone-D5w Pmx 20 mg 32.4 8.1 In Dextrose/Water 1 100ml .bag @ Per Protocol IV . Q0M [facility] Rx#:[id number] Pressure Bag (0.9 Sodium 36 108 63 Chloride) Sodium Chloride 0.9% 1, 200 600 310 000 ml @ 20 mls/hr IV . Q24H [facility] Rx#:[id number] ceFAZolin 2 gm In Sodium 50 100 Chloride 0.9% 50 ml @ 100 mls/hr IVPB Q8HR [facility] Rx# :[id number] Intake, IV Titration 56.765 137.022 35.005 Amount Clevidipine Butyrate 25 18.599 mg In Empty Bag 1 bag @ 1 MG/HR 2 mls/hr IV .Q24H [facility] Rx#:[id number] Insulin Regular 100 unit 13.265 45.829 35.005 In Sodium Chloride 0.9% 100 ml @ Per Protocol IV .Q0M [facility] Rx#:[id number] Milrinone-D5w Pmx 20 mg 72.594 In Dextrose/Water 1 100ml .bag @ Per Protocol IV . Q0M [facility] Rx#:[id number] Norepinephrine 4 mg In 11.195 Sodium Chloride 0.9% 250 ml @ 0.03 MCG/KG/MIN 10. 55 mls/hr IV .Q24H [facility] Rx #:[id number] propofoL 1,000 mg In 32.305 Empty Bag 1 bag @ Titrate IV .Q0M [facility] Rx#: [id number] Tube Feeding 360 Albumin 40 Sodium Chloride 0.9% 1, 40 000 ml @ 20 mls/hr IV . Q24H [facility] Rx#:[id number] Output: Chest Tube Drainage 220 220 110 Chest Tube Bilateral 220 220 110 Mediastinal Urine 960 805 225 Estimated Blood Loss 1999 Other: Voiding Method Indwelling Catheter Indwelling Catheter ABP, PAP, CO, CI - Last Documented Arterial Blood Pressure 119/57 Pulmonary Artery Pressure 26/15 Cardiac Output 4.1 Cardiac Index 2 - Exam Physical Exam: Revealed 42-year-old white male in no distress. Head: Atraumatic, normocephalic. HEENT:[Neck is supple.] [No neck masses.] [No thyromegaly.] [No JVD.] Chest: [Clear throughout, no crackles, no rhonchi, no wheezes.] Mediastinal Chest tubes noted in place. 450 ML output since surgery. Cardiac Exam: [Normal S1 and S2, no S3 gallop, no murmur.] Abdomen: [Soft, nontender, no megaly, no rebound, no guarding, normal bowel sounds.] Extremities: [No clubbing, no edema, no cyanosis.] Neurological Exam: [No focal neurologic deficit.] Alert and oriented 3. Psychiatric: Normal mood affect and normal mental status. Skin: No rashes - Labs CBC & Chem 7: 01/12/23 04:03 01/12/23 04:03 Labs: Abnormal Lab Results - Last 24 Hours (Table) 01/05/23 01/11/23 01/11/23 Range/Units 11:14 14:30 14:30 WBC 13.8 H (3.8-10.6) k/uL RBC 3.21 L (4.30-5.90) m/uL Hgb 9.9 L D (13.0-17.5) gm/dL Hct 28.8 L (39.0-53.0) % Plt Count 124 L (150-450) k/uL Neutrophils # 11.4 H (1.3-7.7) k/uL Lymphocytes # (1.0-4.8) k/uL PT 12.7 H (9.0-12.0) sec INR 1.2 H (<1.2) ABG pH (7.35-7.45) ABG pCO2 (35-45) mmHg ABG pO2 (83-108) mmHg ABG Total CO2 (19-24) mmol/L ABG O2 Saturation (94-97) % BUN (9-20) mg/dL Creatinine (0.66-1.25) mg/dL Glucose (74-99) mg/dL POC Glucose (mg/dL) (70-110) mg/dL Calcium (8.4-10.2) mg/dL AST (17-59) U/L Alkaline Phosphatase (38-126) U/L Total Protein (6.3-8.2) g/dL Albumin (3.5-5.0) g/dL Crossmatch See Detail 01/11/23 01/11/23 01/11/23 Range/Units 14:30 14:47 15:21 WBC (3.8-10.6) k/uL RBC (4.30-5.90) m/uL Hgb (13.0-17.5) gm/dL Hct (39.0-53.0) % Plt Count (150-450) k/uL Neutrophils # (1.3-7.7) k/uL Lymphocytes # (1.0-4.8) k/uL PT (9.0-12.0) sec INR (<1.2) ABG pH (7.35-7.45) ABG pCO2 (35-45) mmHg ABG pO2 351 H (83-108) mmHg ABG Total CO2 25 H (19-24) mmol/L ABG O2 Saturation 100.0 H (94-97) % BUN 8 L (9-20) mg/dL Creatinine 0.61 L (0.66-1.25) mg/dL Glucose 162 H (74-99) mg/dL POC Glucose (mg/dL) 153 H (70-110) mg/dL Calcium 7.8 L (8.4-10.2) mg/dL AST (17-59) U/L Alkaline Phosphatase (38-126) U/L Total Protein 5.0 L (6.3-8.2) g/dL Albumin 3.2 L (3.5-5.0) g/dL Crossmatch 01/11/23 01/11/23 01/11/23 Range/Units 15:49 17:08 17:35 WBC 13.8 H (3.8-10.6) k/uL RBC 3.22 L (4.30-5.90) m/uL Hgb 9.9 L (13.0-17.5) gm/dL Hct 29.1 L (39.0-53.0) % Plt Count 134 L (150-450) k/uL Neutrophils # 12.2 H (1.3-7.7) k/uL Lymphocytes # 0.8 L (1.0-4.8) k/uL PT (9.0-12.0) sec INR (<1.2) ABG pH (7.35-7.45) ABG pCO2 (35-45) mmHg ABG pO2 (83-108) mmHg ABG Total CO2 (19-24) mmol/L ABG O2 Saturation (94-97) % BUN (9-20) mg/dL Creatinine (0.66-1.25) mg/dL Glucose (74-99) mg/dL POC Glucose (mg/dL) 137 H 148 H (70-110) mg/dL Calcium (8.4-10.2) mg/dL AST (17-59) U/L Alkaline Phosphatase (38-126) U/L Total Protein (6.3-8.2) g/dL Albumin (3.5-5.0) g/dL Crossmatch 01/11/23 01/11/23 01/11/23 Range/Units 17:56 18:21 19:58 WBC (3.8-10.6) k/uL RBC (4.30-5.90) m/uL Hgb (13.0-17.5) gm/dL Hct (39.0-53.0) % Plt Count (150-450) k/uL Neutrophils # (1.3-7.7) k/uL Lymphocytes # (1.0-4.8) k/uL PT (9.0-12.0) sec INR (<1.2) ABG pH 7.32 L (7.35-7.45) ABG pCO2 49 H (35-45) mmHg ABG pO2 110 H (83-108) mmHg ABG Total CO2 27 H (19-24) mmol/L ABG O2 Saturation 98.8 H (94-97) % BUN (9-20) mg/dL Creatinine (0.66-1.25) mg/dL Glucose (74-99) mg/dL POC Glucose (mg/dL) 132 H 180 H (70-110) mg/dL Calcium (8.4-10.2) mg/dL AST (17-59) U/L Alkaline Phosphatase (38-126) U/L Total Protein (6.3-8.2) g/dL Albumin (3.5-5.0) g/dL Crossmatch 01/11/23 01/11/23 01/11/23 Range/Units 20:16 20:54 22:06 WBC 13.2 H (3.8-10.6) k/uL RBC 3.31 L (4.30-5.90) m/uL Hgb 10.2 L (13.0-17.5) gm/dL Hct 29.6 L (39.0-53.0) % Plt Count 119 L (150-450) k/uL Neutrophils # 11.9 H (1.3-7.7) k/uL Lymphocytes # 0.5 L (1.0-4.8) k/uL PT (9.0-12.0) sec INR (<1.2) ABG pH (7.35-7.45) ABG pCO2 (35-45) mmHg ABG pO2 (83-108) mmHg ABG Total CO2 (19-24) mmol/L ABG O2 Saturation (94-97) % BUN (9-20) mg/dL Creatinine (0.66-1.25) mg/dL Glucose (74-99) mg/dL POC Glucose (mg/dL) 167 H 141 H (70-110) mg/dL Calcium (8.4-10.2) mg/dL AST (17-59) U/L Alkaline Phosphatase (38-126) U/L Total Protein (6.3-8.2) g/dL Albumin (3.5-5.0) g/dL Crossmatch 01/11/23 01/12/23 01/12/23 Range/Units 23:00 00:13 00:56 WBC (3.8-10.6) k/uL RBC (4.30-5.90) m/uL Hgb (13.0-17.5) gm/dL Hct (39.0-53.0) % Plt Count (150-450) k/uL Neutrophils # (1.3-7.7) k/uL Lymphocytes # (1.0-4.8) k/uL PT (9.0-12.0) sec INR (<1.2) ABG pH (7.35-7.45) ABG pCO2 (35-45) mmHg ABG pO2 (83-108) mmHg ABG Total CO2 (19-24) mmol/L ABG O2 Saturation (94-97) % BUN (9-20) mg/dL Creatinine (0.66-1.25) mg/dL Glucose (74-99) mg/dL POC Glucose (mg/dL) 137 H 151 H 164 H (70-110) mg/dL Calcium (8.4-10.2) mg/dL AST (17-59) U/L Alkaline Phosphatase (38-126) U/L Total Protein (6.3-8.2) g/dL Albumin (3.5-5.0) g/dL Crossmatch 01/12/23 01/12/23 01/12/23 Range/Units 01:58 03:00 04:02 WBC (3.8-10.6) k/uL RBC (4.30-5.90) m/uL Hgb (13.0-17.5) gm/dL Hct (39.0-53.0) % Plt Count (150-450) k/uL Neutrophils # (1.3-7.7) k/uL Lymphocytes # (1.0-4.8) k/uL PT (9.0-12.0) sec INR (<1.2) ABG pH (7.35-7.45) ABG pCO2 (35-45) mmHg ABG pO2 (83-108) mmHg ABG Total CO2 (19-24) mmol/L ABG O2 Saturation (94-97) % BUN (9-20) mg/dL Creatinine (0.66-1.25) mg/dL Glucose (74-99) mg/dL POC Glucose (mg/dL) 142 H 125 H 114 H (70-110) mg/dL Calcium (8.4-10.2) mg/dL AST (17-59) U/L Alkaline Phosphatase (38-126) U/L Total Protein (6.3-8.2) g/dL Albumin (3.5-5.0) g/dL Crossmatch 01/12/23 01/12/23 01/12/23 Range/Units 04:03 04:03 04:54 WBC 13.9 H (3.8-10.6) k/uL RBC 3.33 L (4.30-5.90) m/uL Hgb 10.0 L (13.0-17.5) gm/dL Hct 29.0 L (39.0-53.0) % Plt Count 137 L (150-450) k/uL Neutrophils # 12.2 H (1.3-7.7) k/uL Lymphocytes # 0.8 L (1.0-4.8) k/uL PT (9.0-12.0) sec INR (<1.2) ABG pH (7.35-7.45) ABG pCO2 (35-45) mmHg ABG pO2 (83-108) mmHg ABG Total CO2 (19-24) mmol/L ABG O2 Saturation (94-97) % BUN (9-20) mg/dL Creatinine 0.62 L (0.66-1.25) mg/dL Glucose 113 H (74-99) mg/dL POC Glucose (mg/dL) 153 H (70-110) mg/dL Calcium 8.0 L (8.4-10.2) mg/dL AST 66 H (17-59) U/L Alkaline Phosphatase 28 L (38-126) U/L Total Protein 5.7 L (6.3-8.2) g/dL Albumin (3.5-5.0) g/dL Crossmatch 01/12/23 01/12/23 01/12/23 Range/Units 06:16 06:52 08:32 WBC (3.8-10.6) k/uL RBC (4.30-5.90) m/uL Hgb (13.0-17.5) gm/dL Hct (39.0-53.0) % Plt Count (150-450) k/uL Neutrophils # (1.3-7.7) k/uL Lymphocytes # (1.0-4.8) k/uL PT (9.0-12.0) sec INR (<1.2) ABG pH (7.35-7.45) ABG pCO2 (35-45) mmHg ABG pO2 (83-108) mmHg ABG Total CO2 (19-24) mmol/L ABG O2 Saturation (94-97) % BUN (9-20) mg/dL Creatinine (0.66-1.25) mg/dL Glucose (74-99) mg/dL POC Glucose (mg/dL) 141 H 135 H 197 H (70-110) mg/dL Calcium (8.4-10.2) mg/dL AST (17-59) U/L Alkaline Phosphatase (38-126) U/L Total Protein (6.3-8.2) g/dL Albumin (3.5-5.0) g/dL Crossmatch 01/12/23 01/12/23 01/12/23 Range/Units 09:38 11:19 12:09 WBC (3.8-10.6) k/uL RBC (4.30-5.90) m/uL Hgb (13.0-17.5) gm/dL Hct (39.0-53.0) % Plt Count (150-450) k/uL Neutrophils # (1.3-7.7) k/uL Lymphocytes # (1.0-4.8) k/uL PT (9.0-12.0) sec INR (<1.2) ABG pH (7.35-7.45) ABG pCO2 (35-45) mmHg ABG pO2 (83-108) mmHg ABG Total CO2 (19-24) mmol/L ABG O2 Saturation (94-97) % BUN (9-20) mg/dL Creatinine (0.66-1.25) mg/dL Glucose (74-99) mg/dL POC Glucose (mg/dL) 144 H 115 H 119 H (70-110) mg/dL Calcium (8.4-10.2) mg/dL AST (17-59) U/L Alkaline Phosphatase (38-126) U/L Total Protein (6.3-8.2) g/dL Albumin (3.5-5.0) g/dL Crossmatch 01/12/23 01/12/23 Range/Units 13:18 14:12 WBC (3.8-10.6) k/uL RBC (4.30-5.90) m/uL Hgb (13.0-17.5) gm/dL Hct (39.0-53.0) % Plt Count (150-450) k/uL Neutrophils # (1.3-7.7) k/uL Lymphocytes # (1.0-4.8) k/uL PT (9.0-12.0) sec INR (<1.2) ABG pH (7.35-7.45) ABG pCO2 (35-45) mmHg ABG pO2 (83-108) mmHg ABG Total CO2 (19-24) mmol/L ABG O2 Saturation (94-97) % BUN (9-20) mg/dL Creatinine (0.66-1.25) mg/dL Glucose (74-99) mg/dL POC Glucose (mg/dL) 241 H 164 H (70-110) mg/dL Calcium (8.4-10.2) mg/dL AST (17-59) U/L Alkaline Phosphatase (38-126) U/L Total Protein (6.3-8.2) g/dL Albumin (3.5-5.0) g/dL Crossmatch Assessment and Plan Assessment: impression: Severe bicuspid aortic valve stenosis with preserved LV systolic function, status post aortic valve replacement.using a 23 mm mechanical prosthesis. Postoperative day #1. Type 2 diabetes without complications Benign essential hypertension Dyslipidemia Family history of coronary artery disease Tobacco dependence syndrome Small tiny right apical pneumothorax, expected. Recommendation: Incentive spirometry Early ambulation maximize medical therapy with aspirin and Plavix statin and beta blockers Continue amiodarone by mouth for A. fib prophylaxis Daily monitoring of x-rays of the chest Increase activity as tolerated Remove unnecessary catheters and devices. GI and DVT prophylaxis We'll continue to follow. Time with Patient: Less than 30
[2023-01-12 15:22] LABS: Glucose,Whole Blood 125 mg/dL (70-110)
[2023-01-12 17:27] LABS: Glucose,Whole Blood 130 mg/dL (70-110)
[2023-01-12] MEDS ORDERED: ALBUMIN HUMAN 25% 50 ML in EMPTY BAG 1 BAG IVPB ONE (18:00)
[2023-01-12 19:02] LABS: Glucose,Whole Blood 157 mg/dL (70-110)
[2023-01-12 20:19] LABS: Glucose,Whole Blood 163 mg/dL (70-110)
[2023-01-12] MEDS: SENNOSIDES-DOCUSATE SODIUM 1 EACH TAB PO SCH (20:19)
[2023-01-12] MEDS: METOPROLOL TARTRATE 50 MG TAB PO SCH (20:19)
[2023-01-12 21:12] LABS: Glucose,Whole Blood 136 mg/dL (70-110)
[2023-01-12 22:08] LABS: Glucose,Whole Blood 110 mg/dL (70-110)
[2023-01-12] MEDS: HYDROcodone/APAP 10-325MG 1 EACH TAB PO PRN (22:10)
[2023-01-12 23:06] LABS: Glucose,Whole Blood 106 mg/dL (70-110)
[2023-01-13] MEDS: INSULIN REGULAR 100 UNIT in SODIUM CHLORIDE 0.9% 100 ML IV SCH (00:11)
[2023-01-13 00:12] LABS: Glucose,Whole Blood 140 mg/dL (70-110)
[2023-01-13] MEDS: HEPARIN SODIUM,PORCINE/PF 5,000 UNIT/0.5 ML SYRINGE SQ SCH ×3 (00:13→16:51)
[2023-01-13] MEDS: KETOROLAC 15 MG/ML 1 ML VIAL IVP SCH ×4 (00:13→19:07)
[2023-01-13 01:06] LABS: Glucose,Whole Blood 142 mg/dL (70-110)
[2023-01-13 02:56] LABS: Glucose,Whole Blood 106 mg/dL (70-110)
[2023-01-13 04:03] LABS: Glucose,Whole Blood 107 mg/dL (70-110)
[2023-01-13 04:12] LABS: Basophils % (A) 0 %; Eosinophils # (A) 0.1 k/uL (0-0.7); Eosinophils % (A) 1 %; HCT 26.4 % (39.0-53.0); Lymphocytes # (A) 0.9 k/uL (1.0-4.8); Lymphocytes % (A) 8 %; MCH 30.8 pg (25.0-35.0); MCHC 34.1 g/dL (31.0-37.0); MCV 90.2 fL (80.0-100.0); Mean Platelet Volume 8.6; Monocytes # (A) 0.7 k/uL (0-1.0); Monocytes % (A) 6 %; Neutrophils # (A) 9.7 k/uL (1.3-7.7); Neutrophils % (A) 84 %; Platelet Count 111 k/uL (150-450); RBC 2.93 m/uL (4.30-5.90); RDW 13.9 % (11.5-15.5); WBC 11.6 k/uL (3.8-10.6)
[2023-01-13 04:21] LABS: Ionized Calcium 4.7 mg/dL (4.5-5.3)
[2023-01-13 04:56] LABS: ALT 26 U/L (4-49); AST 55 U/L (17-59); African American GFR (CKD) >90 (>60 ml/min/1.73 sqM); Albumin 3.6 g/dL (3.5-5.0); Alkaline Phosphatase 29 U/L (38-126); Anion Gap 10 mmol/L; Blood Urea Nitrogen 16 mg/dL (9-20); Calcium 8.3 mg/dL (8.4-10.2); Carbon Dioxide 22 mmol/L (22-30); Chloride 102 mmol/L (98-107); Glucose 97 mg/dL (74-99); Magnesium 2.2 mg/dL (1.6-2.3); Non-African American GFR(CKD) >90 (>60 ml/min/1.73 sqM); Sodium 134 mmol/L (137-145); Total Bilirubin 0.9 mg/dL (0.2-1.3); Total Protein 5.8 g/dL (6.3-8.2)
[2023-01-13] MEDS: HYDROcodone/APAP 10-325MG 1 EACH TAB PO PRN (05:06)
[2023-01-13 05:11] LABS: Glucose,Whole Blood 89 mg/dL (70-110)
[2023-01-13] MEDS: PANTOPRAZOLE 40 MG TABLET PO SCH (06:48)
[2023-01-13 06:53] LABS: Glucose,Whole Blood 166 mg/dL (70-110)
[2023-01-13 07:57] LABS: Glucose,Whole Blood 174 mg/dL (70-110)
[2023-01-13] MEDS: METOPROLOL TARTRATE 50 MG TAB PO SCH ×2 (08:05→21:37)
[2023-01-13] MEDS: ASPIRIN 325 MG TAB PO SCH (08:05)
[2023-01-13] MEDS: AMIODARONE 200 MG TAB PO SCH ×2 (08:05→21:37)
[2023-01-13] MEDS: ATORVASTATIN 40 MG TAB PO SCH (08:05)
[2023-01-13] MEDS: CLOPIDOGREL 75 MG TAB PO SCH (08:05)
[2023-01-13] MEDS: MUPIROCIN 2% OINT 22 GM TUBE NASAL SCH ×2 (08:06→21:38)
--- NOTE | 2023-01-13 08:31 | XR ---
EXAMINATION TYPE: XR chest 1V portable DATE OF EXAM: 01/13/2023 COMPARISON: 01/12/2023 HISTORY: Postop TECHNIQUE: Single frontal view of the chest is obtained. FINDINGS: [place]-Donna catheter has been removed and there is limited inspiration with bilateral infilt rate and pleural effusion. No overt failure. No pneumothorax. Postsurgical changes are seen. Suggesti on of an epicardial lead. IMPRESSION: 1. Stable bilateral infiltrate and small effusion.
[2023-01-13] MEDS: IPRATROPIUM-ALBUTEROL 3 ML NEB INHALATION SCH ×4 (09:12→21:22)
[2023-01-13] MEDS: METOCLOPRAMIDE 5 MG/ML 2 ML VIAL IVP PRN (09:18)
[2023-01-13 09:23] LABS: Glucose,Whole Blood 141 mg/dL (70-110)
[2023-01-13] MEDS ORDERED: FUROSEMIDE 10 MG/ML 2 ML VIAL IV STA (09:24)
[2023-01-13] MEDS ORDERED: POTASSIUM CHLORIDE ER 10 MEQ TAB.ER.PRT PO STA (09:25)
--- NOTE | 2023-01-13 09:26 | P.PN ---
Subjective Progress Note Date: 01/13/23 Principal diagnosis: Severe bicuspid aortic valve stenosis with preserved left ventricular systolic function. Past medical history significant for diabetes mellitus, hypertension, hyperlipidemia, is a lifetime nonsmoker, daily marijuana use and has a family history of coronary artery disease. POD #2 Aortic valve replacement using a 23 mm mechanical prosthesis, OnX valve with conform sewing ring, exclusion of the left atrial appendage using a 35 mm atriclip, intraoperative transesophageal echocardiogram and epi-aortic ultrasound. Postoperative acute blood loss anemia, expected given hemodilution and cardiopulmonary bypass Tiny right sided apical pneumothorax, expected The patient was seen and examined in follow-up today 01/13/2023 at his bedside in the intensive care unit. He is sitting up to bedside chair, is awake, alert, oriented 3 and is in no acute apparent distress. Denies any complaints of pain or shortness of breath at this time and also denies any further complaints of nausea. He reports he feels much improved today than yesterday, although fermin nues to feel weak. He remains hemodynamically stable and is currently on no on a TURP pressure support. Oxygen saturations are 92% on room air and he is achieving 1500 mL on his incentive spirometry. Bedside telemetry showing sinus tachycardia heart rate 112 bpm. Right IJ cordis remains in place with continuous CVP monitoring, current CVP pressure 16 mmHg. Atrial and ventricular epicardial pacemaker wires remaining in place and connected to backup pacemaker generator on a VVI 50 BPM. Chest x-ray and laboratory results reviewed. He has been afebrile in the last 24 hours. Insulin drip infusing at 4.5 units per hour. Mediastinal chest tubes remain in place to low continuous wall suction - 20 cm H2O. No air leak is present. Draining thin serosanguineous drainage with 60 mL of output in the last 8 hours and 220 mL output in the last 24 hours. Objective - Vital Signs Vital signs: Vital Signs Temp 99 F 01/13/23 08:00 Pulse 102 H 01/13/23 08:00 Resp 14 01/13/23 08:00 BP 96/64 01/13/23 00:16 Pulse Ox 91 L 01/13/23 08:00 FiO2 40 01/11/23 18:00 Intake & Output 01/12/23 01/13/23 01/13/23 18:59 06:59 18:59 Intake Total 1455.578 935.042 272.136 Output Total 440 545 5 Balance 1015.578 390.042 267.136 Weight 96.1 kg 97.6 kg Intake: IV 684 388 26 Albumin Human 25% 50 ml 50 In Empty Bag 1 bag @ 50 mls/hr IVPB ONCE ONE Rx#: [id number] Cardiac Output (0.9 70 Sodium Chloride) Pressure Bag (0.9 Sodium 84 78 6 Chloride) Sodium Chloride 0.9% 1, 430 260 20 000 ml @ 20 mls/hr IV . Q24H [facility] Rx#:[id number] ceFAZolin 2 gm In Sodium 100 Chloride 0.9% 50 ml @ 100 mls/hr IVPB Q8HR [facility] Rx# :[id number] Intake, IV Titration 41.578 47.042 6.136 Amount Insulin Regular 100 unit 41.578 47.042 6.136 In Sodium Chloride 0.9% 100 ml @ Per Protocol IV .Q0M [facility] Rx#:[id number] Oral 370 500 240 Tube Feeding 360 Output: Chest Tube Drainage 140 70 0 Chest Tube Bilateral 140 70 0 Mediastinal Urine 300 475 5 Other: Voiding Method Indwelling Catheter Indwelling Catheter Indwelling Catheter ABP, PAP, CO, CI - Last Documented Arterial Blood Pressure 113/56 Pulmonary Artery Pressure 26/14 Cardiac Output 5.3 Cardiac Index 2.6 - Exam CONSTITUTIONAL: Sitting up to the bedside chair in the intensive care unit, appears comfortable, cooperative, no apparent acute distress. HEENT: Neck is supple, no JVD, no lymphadenopathy. Right IJ Cordis in place and functioning. RESPIRATORY: Lungs sounds essentially clear throughout, diminished to his bilateral bases. Respirations are symmetrical and nonlabored. Currently on room air with oxygen saturations 92%. Able to achieve 1500 mL on his incentive spirometry. Strong cough. CARDIOVASCULAR: Regular rhythm and rate. S1 and S2 present, negative for S3, gallop or murmur, positive valvular click. Sternum is stable. Palpable peripheral pulses bilaterally, no edema to his bilateral lower extremities. No calf pain or tenderness noted. Heart hugger in place with patient demonstrating appropriate use. Knee-high DONNA hose and sequential compression devices in place to his bilateral lower extremities. GASTROINTESTINAL: Abdomen soft, nontender, nondistended. Active bowel sounds present 4 quadrants. Tolerating diet. Passing flatus. No guarding or rigidity. GENITOURINARY: Huber present draining clear, yellow urine. Urine output 270 mL in the last 8 hours INTEGUMENTARY: Skin is warm and dry with no evidence of clubbing or cyanosis. Midline sternal incision clean dry and well approximated, covered with dry intact dressing. NEUROLOGIC: Cranial nerves II through XII intact. No focal deficits. MUSKULOSKELETAL: Able to move all extremities, strength equal bilaterally, generalized weakness. PSYCHIATRIC: Alert and oriented to person place and time, appropriate affect, intact judgment and insight. INVASIVE LINES AND TUBES: Mediastinal chest tubes present and connected to low continuous wall suction, no air leaks present. Mediastinal tubes with 60 mL of thin serosanguineous drainage overnight, 270 mL output in the last 24 hours. Atrial and ventricular epicardial pacemaker wires present, connected to generator, VVI backup rate 50 bpm. Right internal jugular Cordis, right radial arterial line present. Current CVP 16 mmHg. - Allied health notes Allied health notes reviewed: nursing - Labs CBC & Chem 7: 01/13/23 04:00 01/13/23 04:00 Labs: Abnormal Lab Results - Last 24 Hours (Table) 01/05/23 01/12/23 01/12/23 Range/Units 11:14 08:32 09:38 WBC (3.8-10.6) k/uL RBC (4.30-5.90) m/uL Hgb (13.0-17.5) gm/dL Hct (39.0-53.0) % Plt Count (150-450) k/uL Neutrophils # (1.3-7.7) k/uL Lymphocytes # (1.0-4.8) k/uL Sodium (137-145) mmol/L POC Glucose (mg/dL) 197 H 144 H (70-110) mg/dL Calcium (8.4-10.2) mg/dL Alkaline Phosphatase (38-126) U/L Total Protein (6.3-8.2) g/dL Crossmatch See Detail 01/12/23 01/12/23 01/12/23 Range/Units 11:19 12:09 13:18 WBC (3.8-10.6) k/uL RBC (4.30-5.90) m/uL Hgb (13.0-17.5) gm/dL Hct (39.0-53.0) % Plt Count (150-450) k/uL Neutrophils # (1.3-7.7) k/uL Lymphocytes # (1.0-4.8) k/uL Sodium (137-145) mmol/L POC Glucose (mg/dL) 115 H 119 H 241 H (70-110) mg/dL Calcium (8.4-10.2) mg/dL Alkaline Phosphatase (38-126) U/L Total Protein (6.3-8.2) g/dL Crossmatch 01/12/23 01/12/23 01/12/23 Range/Units 14:12 15:21 17:26 WBC (3.8-10.6) k/uL RBC (4.30-5.90) m/uL Hgb (13.0-17.5) gm/dL Hct (39.0-53.0) % Plt Count (150-450) k/uL Neutrophils # (1.3-7.7) k/uL Lymphocytes # (1.0-4.8) k/uL Sodium (137-145) mmol/L POC Glucose (mg/dL) 164 H 125 H 130 H (70-110) mg/dL Calcium (8.4-10.2) mg/dL Alkaline Phosphatase (38-126) U/L Total Protein (6.3-8.2) g/dL Crossmatch 01/12/23 01/12/23 01/12/23 Range/Units 19:01 20:18 21:11 WBC (3.8-10.6) k/uL RBC (4.30-5.90) m/uL Hgb (13.0-17.5) gm/dL Hct (39.0-53.0) % Plt Count (150-450) k/uL Neutrophils # (1.3-7.7) k/uL Lymphocytes # (1.0-4.8) k/uL Sodium (137-145) mmol/L POC Glucose (mg/dL) 157 H 163 H 136 H (70-110) mg/dL Calcium (8.4-10.2) mg/dL Alkaline Phosphatase (38-126) U/L Total Protein (6.3-8.2) g/dL Crossmatch 01/13/23 01/13/23 01/13/23 Range/Units 00:11 01:05 04:00 WBC (3.8-10.6) k/uL RBC (4.30-5.90) m/uL Hgb (13.0-17.5) gm/dL Hct (39.0-53.0) % Plt Count (150-450) k/uL Neutrophils # (1.3-7.7) k/uL Lymphocytes # (1.0-4.8) k/uL Sodium 134 L (137-145) mmol/L POC Glucose (mg/dL) 140 H 142 H (70-110) mg/dL Calcium 8.3 L (8.4-10.2) mg/dL Alkaline Phosphatase 29 L (38-126) U/L Total Protein 5.8 L (6.3-8.2) g/dL Crossmatch 01/13/23 01/13/23 01/13/23 Range/Units 04:00 06:52 07:56 WBC 11.6 H (3.8-10.6) k/uL RBC 2.93 L (4.30-5.90) m/uL Hgb 9.0 L (13.0-17.5) gm/dL Hct 26.4 L (39.0-53.0) % Plt Count 111 L (150-450) k/uL Neutrophils # 9.7 H (1.3-7.7) k/uL Lymphocytes # 0.9 L (1.0-4.8) k/uL Sodium (137-145) mmol/L POC Glucose (mg/dL) 166 H 174 H (70-110) mg/dL Calcium (8.4-10.2) mg/dL Alkaline Phosphatase (38-126) U/L Total Protein (6.3-8.2) g/dL Crossmatch - Imaging and Cardiology Chest x-ray: report reviewed, image reviewed Assessment and Plan Assessment: Severe bicuspid aortic valve stenosis with preserved LV systolic function, status post aortic valve replacement using a 23 mm On-X mechanical prosthesis Diabetes mellitus type 2 Hypertension Hyperlipidemia Family history of coronary artery disease Daily marijuana use Lifetime nonsmoker Postoperative acute blood loss anemia, expected given hemodilution and cardiopulmonary bypass Tiny right sided apical pneumothorax, expected Plan: Continue to maximize medical therapy with aspirin, Plavix, statin, and beta isabel. Once the patient's INR is therapeutic on Coumadin we will discontinue the Plavix, continue aspirin 325 mg by mouth daily and Protonix 40 mg by mouth d aily. Metoprolol tartrate was increased to 50 mg by mouth twice a day last evening. Remove right IJ Cordis. Continue amiodarone 400 mg by mouth twice a day for A. fib prophylaxis. Wean O2 as tolerated. Encourage incentive spirometry use 10 times every hour while awake. Bronchodilators per pulmonology. Increase activity as tolerated. PT/OT/cardiac rehab following. Will monitor daily labs and chest x-rays. Electrolyte replacement per protocol. Continue Ferrous sulfate/vitamin C. Insulin management per internal medicine. Hemoglobin A1c preoperative 7.0%, patient is a diabetic, keep tight blood sugar control to promote sternal wound healing. GI/DVT prophylaxis. Pain control with current medication regimen. We will remove his mediastinal chest tubes today. Remove Huber catheter, continue to record strict accurate intake and output. Me bladder scan every 6 hours and when necessary postvoid residual, if greater than 300 mL of residual May straight cath. Daily weights. We will remove his epicardial pacemaker wires, he will be on bed rest for 1 hour post pacemaker wire removal. We will start Coumadin 7.5 mg by mouth today, goal INR for the first 3 months to be 2.0-3.0, and after the 3 months goal rate will be 1.5-2.0. We will check daily PT and INRs. Lasix 20 mg IV 1 now and potassium chloride 10 mEq by mouth 1 now. More recommendations to follow based on patient's clinical course. Time with Patient: Greater than 30
[2023-01-13 10:30] LABS: Glucose,Whole Blood 136 mg/dL (70-110)
[2023-01-13 12:25] LABS: Glucose,Whole Blood 115 mg/dL (70-110)
[2023-01-13] MEDS: FERROUS SULFATE 325 MG TAB PO SCH (12:27)
[2023-01-13] MEDS: ASCORBIC ACID 500 MG TAB PO SCH (12:27)
--- NOTE | 2023-01-13 12:52 | P.PN ---
Subjective Progress Note Date: 01/13/23 Principal diagnosis: Status post aortic valve replacement postoperative day #2 this is a 42-year-old white male, primarily a patient of Dr. Segundo, patient was referred recently to cardiology, patient developed history of heart murmur for many years. However recently the patient has been complaining of weakness fatigue and some shortness of breath on exertion, underwent further cardiac workup, he was found to have severe aortic stenosis, left ventricular hypertrophy, no previous history no chest pain, but he had intermittent episodes of palpitations. Patient is known to have history of type 2 diabetes without complications, hypertension, dyslipidemia, and strong family history of coronary artery disease.recent cardiac catheterizationshowed severe bicuspid aortic valve stenosis and mild nonocclusive coronary artery disease. Hence the patient was referred for aortic valve replacement. This was done today by Dr. Joseph, patient is now in the ICU on mechanical ventilation, and this consult was initiatedpatient is maintained ontidal volume of tidal volume of 500,assist control rate of 20, PEEP of 8 and FiO2 100%.ABG showed a pO2 of 351 pCO2 44 pH of 7.35, hence I cut down the FiO2 down to 40%.chest x-ray showed no evidence of active disease. Adequate placement of endotracheal tube, lines, and mediastinal chest tube. Patient is sedated, on propofol, he is also on milrinone, and he seems to be hemodynamically stable at this point. Reevaluated today on 01/12/2023, patient is now postoperative day #1, he is status post aortic valve replacement using a 23 mm mechanical prosthesis. Patient was extubated uneventfully a few hours after he arrived to the ICU. As a matter of fact he was extubated at 6:15 PM last evening. Today the patient is in no distress, he is on 2 L nasal cannula saturation 97%, denies any specific complaints. Not requiring any drips at this point except insulin drip for his elevated blood sugar. Hemodynamic showed cardiac output 5.4, pulmonary artery pressure 31/17 CVP of 11. Chest tubes were noted chest x-ray was noted, small tiny right apical pneumothorax is noted. Right-sided chest tube remains in place, no megaly Patient was reevaluated today on , his postoperative day #2 chest x-ray continues to show small tiny right apical pneumothorax, there is no leak noted in the chest tube, clinically the patient is doing great, asymptomatic, remains on room air. Remains on insulin drip at 4.5 units per hour. Otherwise the patient is not requiring any drips. Chest x-ray minimal bibasilar atelectasis is noted and again apical right-sided pneumothorax very minimal WBC count is 11.6 hemoglobin is 9. Electrolytes and basic metabolic profile are normal Objective - Vital Signs Vital signs: Vital Signs Temp 99 F 01/13/23 12:00 Pulse 88 01/13/23 12:14 Resp 19 01/13/23 12:00 BP 100/62 01/13/23 12:00 Pulse Ox 99 01/13/23 12:06 FiO2 40 01/11/23 18:00 Intake & Output 01/12/23 01/13/23 01/13/23 18:59 06:59 18:59 Intake Total 1455.578 935.042 372.583 Output Total 440 545 455 Balance 1015.578 390.042 -82.417 Weight 96.1 kg 97.6 kg Intake: IV 684 388 115 Albumin Human 25% 50 ml 50 In Empty Bag 1 bag @ 50 mls/hr IVPB ONCE ONE Rx#: [id number] Cardiac Output (0.9 70 Sodium Chloride) Pressure Bag (0.9 Sodium 84 78 15 Chloride) Sodium Chloride 0.9% 1, 430 260 100 000 ml @ 20 mls/hr IV . Q24H [facility] Rx#:[id number] ceFAZolin 2 gm In Sodium 100 Chloride 0.9% 50 ml @ 100 mls/hr IVPB Q8HR [facility] Rx# :[id number] Intake, IV Titration 41.578 47.042 17.583 Amount Insulin Regular 100 unit 41.578 47.042 17.583 In Sodium Chloride 0.9% 100 ml @ Per Protocol IV .Q0M [facility] Rx#:[id number] Oral 370 500 240 Tube Feeding 360 Output: Chest Tube Drainage 140 70 0 Chest Tube Bilateral 140 70 0 Mediastinal Urine 300 475 455 Other: Voiding Method Indwelling Catheter Indwelling Catheter Indwelling Catheter ABP, PAP, CO, CI - Last Documented Arterial Blood Pressure 106/52 Pulmonary Artery Pressure 26/14 Cardiac Output 5.3 Cardiac Index 2.6 - Exam Physical Exam: Revealed 42-year-old white male in no distress. Head: Atraumatic, normocephalic. HEENT:[Neck is supple.] [No neck masses.] [No thyromegaly.] [No JVD.] Chest: [Clear throughout, no crackles, no rhonchi, no wheezes.] Mediastinal Chest tubes noted in place. Cardiac Exam: [Normal S1 and S2, no S3 gallop, no murmur.] Abdomen: [Soft, nontender, no megaly, no rebound, no guarding, normal bowel sounds.] Extremities: [No clubbing, no edema, no cyanosis.] Neurological Exam: [No focal neurologic deficit.] Alert and oriented 3. Psychiatric: Normal mood affect and normal mental status. Skin: No rashes - Labs CBC & Chem 7: 01/13/23 04:00 01/13/23 04:00 Labs: Abnormal Lab Results - Last 24 Hours (Table) 01/12/23 01/12/23 01/12/23 Range/Units 13:18 14:12 15:21 WBC (3.8-10.6) k/uL RBC (4.30-5.90) m/uL Hgb (13.0-17.5) gm/dL Hct (39.0-53.0) % Plt Count (150-450) k/uL Neutrophils # (1.3-7.7) k/uL Lymphocytes # (1.0-4.8) k/uL Sodium (137-145) mmol/L POC Glucose (mg/dL) 241 H 164 H 125 H (70-110) mg/dL Calcium (8.4-10.2) mg/dL Alkaline Phosphatase (38-126) U/L Total Protein (6.3-8.2) g/dL 01/12/23 01/12/23 01/12/23 Range/Units 17:26 19:01 20:18 WBC (3.8-10.6) k/uL RBC (4.30-5.90) m/uL Hgb (13.0-17.5) gm/dL Hct (39.0-53.0) % Plt Count (150-450) k/uL Neutrophils # (1.3-7.7) k/uL Lymphocytes # (1.0-4.8) k/uL Sodium (137-145) mmol/L POC Glucose (mg/dL) 130 H 157 H 163 H (70-110) mg/dL Calcium (8.4-10.2) mg/dL Alkaline Phosphatase (38-126) U/L Total Protein (6.3-8.2) g/dL 01/12/23 01/13/23 01/13/23 Range/Units 21:11 00:11 01:05 WBC (3.8-10.6) k/uL RBC (4.30-5.90) m/uL Hgb (13.0-17.5) gm/dL Hct (39.0-53.0) % Plt Count (150-450) k/uL Neutrophils # (1.3-7.7) k/uL Lymphocytes # (1.0-4.8) k/uL Sodium (137-145) mmol/L POC Glucose (mg/dL) 136 H 140 H 142 H (70-110) mg/dL Calcium (8.4-10.2) mg/dL Alkaline Phosphatase (38-126) U/L Total Protein (6.3-8.2) g/dL 01/13/23 01/13/23 01/13/23 Range/Units 04:00 04:00 06:52 WBC 11.6 H (3.8-10.6) k/uL RBC 2.93 L (4.30-5.90) m/uL Hgb 9.0 L (13.0-17.5) gm/dL Hct 26.4 L (39.0-53.0) % Plt Count 111 L (150-450) k/uL Neutrophils # 9.7 H (1.3-7.7) k/uL Lymphocytes # 0.9 L (1.0-4.8) k/uL Sodium 134 L (137-145) mmol/L POC Glucose (mg/dL) 166 H (70-110) mg/dL Calcium 8.3 L (8.4-10.2) mg/dL Alkaline Phosphatase 29 L (38-126) U/L Total Protein 5.8 L (6.3-8.2) g/dL 01/13/23 01/13/23 01/13/23 Range/Units 07:56 09:22 10:29 WBC (3.8-10.6) k/uL RBC (4.30-5.90) m/uL Hgb (13.0-17.5) gm/dL Hct (39.0-53.0) % Plt Count (150-450) k/uL Neutrophils # (1.3-7.7) k/uL Lymphocytes # (1.0-4.8) k/uL Sodium (137-145) mmol/L POC Glucose (mg/dL) 174 H 141 H 136 H (70-110) mg/dL Calcium (8.4-10.2) mg/dL Alkaline Phosphatase (38-126) U/L Total Protein (6.3-8.2) g/dL 01/13/23 Range/Units 12:24 WBC (3.8-10.6) k/uL RBC (4.30-5.90) m/uL Hgb (13.0-17.5) gm/dL Hct (39.0-53.0) % Plt Count (150-450) k/uL Neutrophils # (1.3-7.7) k/uL Lymphocytes # (1.0-4.8) k/uL Sodium (137-145) mmol/L POC Glucose (mg/dL) 115 H (70-110) mg/dL Calcium (8.4-10.2) mg/dL Alkaline Phosphatase (38-126) U/L Total Protein (6.3-8.2) g/dL Assessment and Plan Assessment: impression: Severe bicuspid aortic valve stenosis with preserved LV systolic function, status post aortic valve replacement.using a 23 mm mechanical prosthesis. Postoperative day #2 Type 2 diabetes without complications Benign essential hypertension Dyslipidemia Family history of coronary artery disease Tobacco dependence syndrome Small tiny right apical pneumothorax, expected. Recommendation: Incentive spirometry Ambulate Daily monitoring of x-rays of the chest Increase activity as tolerated Remove unnecessary catheters and devices. GI and DVT prophylaxis Continue insulin and address sugars accordingly. We'll continue to follow. Time with Patient: Less than 30
[2023-01-13 14:55] LABS: INR 0.9 (<1.2); Prothrombin Time 10.1 sec (9.0-12.0)
--- NOTE | 2023-01-13 15:21 | P.CRDCN ---
History of Present Illness History of present illness: HISTORY OF PRESENTING ILLNESS Patient is a pleasant 42-year-old male with history of hypertension, diabetes mellitus, hyperlipidemia, marijuana use, family history of coronary artery disease, bicuspid aortic valve with severe aortic stenosis. He follows with Dr Raygoza. Patient is on it for elective aortic valve replacement and had a 23 mm mechanical OnX valve placed with left atrial appendage closure. He has had persistent sinus tachycardia to 100s 120 range however no atrial fibrillation. He is off of any pressors. Currently denies any chest pain or pressure other than with deep inspiration. Blood pressure stable. REVIEW OF SYSTEMS At the time of my exam: CONSTITUTIONAL: Denies fever or chills. CARDIOVASCULAR: +reproducible chest pain, no shortness of breath, orthopnea, PND or palpitations. RESPIRATORY: Denies cough. GASTROINTESTINAL: Denies abdominal pain, diarrhea, constipation, nausea or vomiting. MUSCULOSKELETAL: Denies myalgias. NEUROLOGIC: Denies numbness, tingling or weakness. ENDOCRINE: Denies fatigue, weight change, polydipsia or polyurina. GENITOURINARY: Denies burning, hematuria or urgency with micturation. HEMATOLOGIC: Denies history of anemia or bleeding. PHYSICAL EXAMINATION Vital signs reviewed. CONSTITUTIONAL: No apparent distress. HEENT: Head is normocephalic. Pupils are equal, round. Sclerae anicteric. Mucous membranes of the mouth are moist. No JVD. No carotid bruit. CHEST EXAMINATION: Lungs are clear to auscultation. No chest wall tenderness is noted on palpation or with deep breathing. HEART EXAMINATION: Regular rate and rhythm. S1, S2 heard. No murmurs, gallops or rub. ABDOMEN: Soft, nontender. Positive bowel sounds. EXTREMITIES: 2+ peripheral pulses, no lower extremity edema and no calf tenderness. NEUROLOGIC EXAMINATION: Patient is awake, alert and oriented x3. ASSESSMENT 1. Severe aortic stenosis status post mechanical AVR with 23mm [place] 2. Hypertension 3. Hyperlipidemia 4. Diabetes mellitus type 2 5. Sinus tachycardia 6. Anemia, expected PLAN Patient appears very recovering from his aortic valve replacement. Continue with metoprolol which she has been tolerating well. Continue current supportive care. Coumadin started today with goal INR 2-3 for first 3 months then 1.5-2.0. Past Medical History Past Medical History: Diabetes Mellitus, Hyperlipidemia, Hypertension Additional Past Medical History / Comment(s): SOB w/exertion History of Any Multi-Drug Resistant Organisms: None Reported Past Surgical History: Heart Catheterization, Hernia Repair, Orthopedic Surgery Additional Past Surgical History / Comment(s): pylonoidal cyst removed, right shoulder arthroscopic, vasectomy Past Anesthesia/Blood Transfusion Reactions: No Reported Reaction Additional Past Anesthesia/Blood Transfusion Reaction / Comment(s): wakes up quickly after anesthesia Smoking Status: Never smoker - Past Family History Mother Family Medical History: No Reported History Medications and Allergies Home Medications Medication Instructions Recorded Confirmed Type Glimepiride [Amaryl] 2 mg PO BID 05/01/19 01/05/23 History metFORMIN HCL 500 mg PO BID 05/01/19 01/05/23 History Rosuvastatin [Crestor] 10 mg PO DAILY 12/08/22 01/05/23 History lisinopriL [Zestril] 10 mg PO DAILY 12/08/22 01/05/23 History Mupirocin [Mupirocin 2%] 1 applic NASAL BID #1 tub 01/05/23 01/11/23 Rx Aspirin 325 mg PO DAILY 01/11/23 01/11/23 History Allergies Allergy/AdvReac Type Severity Reaction Status Date / Time No Known Allergies Allergy Verified 01/11/23 05:55 Physical Exam Vitals: Vital Signs Temp Pulse Resp BP Pulse Ox 01/13/23 15:00 90 20 107/65 95 01/13/23 14:30 93 23 85/62 93 L 01/13/23 14:00 90 17 85/62 98 01/13/23 13:30 90 19 108/67 98 01/13/23 13:00 98 31 H 108/67 97 01/13/23 12:14 88 01/13/23 12:06 99 01/13/23 12:05 86 01/13/23 12:00 99 F 84 19 100/62 100 01/13/23 11:30 84 21 98 01/13/23 11:00 84 24 111/72 98 01/13/23 10:30 85 26 H 111/72 98 01/13/23 10:00 89 23 108/66 98 01/13/23 09:21 94 01/13/23 09:12 92 96 01/13/23 09:00 87 17 98 01/13/23 08:00 99 F 102 H 14 91 L 01/13/23 07:45 106 H 25 H 92 L 01/13/23 07:30 95 25 H 93 L 01/13/23 07:15 114 H 21 91 L 01/13/23 07:00 96 18 91 L 01/13/23 06:45 105 H 16 91 L 01/13/23 06:30 101 H 21 91 L 01/13/23 06:15 112 H 90 L 01/13/23 06:00 101 H 01/13/23 05:45 109 H 24 91 L 01/13/23 05:30 97 23 90 L 01/13/23 05:15 103 H 31 H 91 L 01/13/23 05:00 97 21 91 L 01/13/23 04:45 97 20 91 L 01/13/23 04:30 98 16 90 L 01/13/23 04:15 96 22 91 L 01/13/23 04:00 99.1 F 97 22 92 L 01/13/23 03:45 98 22 90 L 01/13/23 03:30 99 23 89 L 01/13/23 03:15 96 21 89 L 01/13/23 03:00 96 22 89 L 01/13/23 02:45 96 22 90 L 01/13/23 02:30 101 H 26 H 91 L 01/13/23 02:15 97 21 90 L 01/13/23 02:00 101 H 20 91 L 01/13/23 01:45 97 18 91 L 01/13/23 01:30 98 20 91 L 01/13/23 01:15 98 20 90 L 01/13/23 01:00 101 H 22 90 L 01/13/23 00:45 101 H 17 93 L 01/13/23 00:30 100 23 92 L 01/13/23 00:16 97 25 H 96/64 92 L 01/13/23 00:15 101 H 25 H 92 L 01/13/23 00:00 99.0 F 97 22 90 L 01/12/23 23:45 101 H 21 90 L 01/12/23 23:30 109 H 20 92 L 01/12/23 23:15 110 H 20 91 L 01/12/23 23:00 118 H 22 91 L 01/12/23 22:45 105 H 22 91 L 01/12/23 22:30 110 H 25 H 92 L 01/12/23 22:15 107 H 27 H 92 L 01/12/23 22:00 107 H 15 92 L 01/12/23 21:45 109 H 15 93 L 01/12/23 21:30 111 H 24 92 L 01/12/23 21:15 111 H 18 121/75 92 L 01/12/23 21:00 111 H 21 93 L 01/12/23 20:45 110 H 22 93 L 01/12/23 20:37 116 H 01/12/23 20:30 101 H 26 H 100 01/12/23 20:26 104 H 01/12/23 20:15 105 H 17 94 L 01/12/23 20:00 98.8 F 105 H 17 93 L 01/12/23 19:45 103 H 18 93 L 01/12/23 19:30 110 H 13 94 L 01/12/23 19:15 106 H 25 H 93 L 01/12/23 19:00 105 H 27 H 94 L 01/12/23 18:30 105 H 19 92 L 01/12/23 18:15 106 H 21 92 L 01/12/23 18:00 117 H 25 H 92 L 01/12/23 17:00 121 H 19 94 L 01/12/23 16:00 96 22 96 01/12/23 15:51 102 H 01/12/23 15:43 100 Intake and Output 01/13/23 01/13/23 01/13/23 06:59 14:59 22:59 Intake Total 751.205 762.583 Output Total 350 555 Balance 401.205 207.583 Intake: IV 234 135 Pressure Bag (0.9 Sodium 54 15 Chloride) Sodium Chloride 0.9% 1, 180 120 000 ml @ 20 mls/hr IV . Q24H [facility] Rx#:[id number] Intake, IV Titration 17.205 17.583 Amount Insulin Regular 100 unit 17.205 17.583 In Sodium Chloride 0.9% 100 ml @ Per Protocol IV .Q0M [facility] Rx#:[id number] Oral 500 610 Output: Chest Tube Drainage 60 0 Chest Tube Bilateral 60 0 Mediastinal Urine 290 555 Other: Voiding Method Indwelling Catheter Indwelling Catheter Weight 97.6 kg ABP, PAP, CO, CI - Last 8 Hours Arterial Blood Pressure 106/52 Arterial Blood Pressure 113/56 Arterial Blood Pressure 100/62 Arterial Blood Pressure 121/63 Cardiac Output 5.3 Cardiac Output 5.3 Cardiac Output 5.3 Cardiac Output 5.3 Cardiac Output 5.3 Cardiac Output 5.3 Cardiac Output 5.3 Cardiac Output 5.3 Cardiac Output 5.3 Cardiac Output 5.3 Cardiac Output 5.3 Cardiac Index 2.6 Cardiac Index 2.6 Cardiac Index 2.6 Cardiac Index 2.6 Cardiac Index 2.6 Cardiac Index 2.6 Cardiac Index 2.6 Cardiac Index 2.6 Cardiac Index 2.6 Cardiac Index 2.6 Cardiac Index 2.6 Results 01/13/23 04:00 01/13/23 04:00 Cardiac Enzymes 01/13/23 Range/Units 04:00 AST 55 (17-59) U/L Coagulation 01/13/23 Range/Units 14:26 PT 10.1 (9.0-12.0) sec CBC 01/13/23 Range/Units 04:00 WBC 11.6 H (3.8-10.6) k/uL RBC 2.93 L (4.30-5.90) m/uL Hgb 9.0 L (13.0-17.5) gm/dL Hct 26.4 L (39.0-53.0) % Plt Count 111 L (150-450) k/uL Comprehensive Metabolic Panel 01/13/23 Range/Units 04:00 Sodium 134 L (137-145) mmol/L Potassium 4.0 (3.5-5.1) mmol/L Chloride 102 (98-107) mmol/L Carbon Dioxide 22 (22-30) mmol/L BUN 16 (9-20) mg/dL Creatinine 0.84 (0.66-1.25) mg/dL Glucose 97 (74-99) mg/dL Calcium 8.3 L (8.4-10.2) mg/dL AST 55 (17-59) U/L ALT 26 (4-49) U/L Alkaline Phosphatase 29 L (38-126) U/L Total Protein 5.8 L (6.3-8.2) g/dL Albumin 3.6 (3.5-5.0) g/dL Current Medications Generic Name Dose Route Start Last Admin Trade Name Freq PRN Reason Stop Dose Admin Acetaminophen 1,000 mg 01/13/23 14:55 Acetaminophen Tab 500 Mg Tab PO Q6HR PRN Fever and/ or Pain Albuterol/Ipratropium 3 ml 01/11/23 13:23 01/12/23 12:38 Ipratropium-Albuterol 3 Ml Neb INHALATION 3 ml RT-Q2H PRN Administration Shortness Of Breath Or Wheezing Albuterol/Ipratropium 3 ml 01/11/23 20:00 01/13/23 12:05 Ipratropium-Albuterol 3 Ml Neb INHALATION 3 ml RT-QID [facility] Administration Amiodarone HCl 400 mg 01/11/23 21:15 01/13/23 08:05 Amiodarone 200 Mg Tab PO 400 mg BID [facility] Administration Ascorbic Acid 500 mg 01/12/23 12:00 01/13/23 12:27 Ascorbic Acid 500 Mg Tab PO 500 mg DAILY@1200 [facility] Administration Aspirin 325 mg 01/12/23 09:00 01/13/23 08:05 Aspirin 325 Mg Tab PO 325 mg DAILY [facility] Administration Atorvastatin Calcium 40 mg 01/12/23 09:00 01/13/23 08:05 Atorvastatin 40 Mg Tab PO 40 mg DAILY [facility] Administration Bisacodyl 10 mg 01/12/23 09:00 Bisacodyl 10 Mg Supp RECTAL DAILY PRN Constipation Clopidogrel Bisulfate 75 mg 01/12/23 09:00 01/13/23 08:05 Clopidogrel 75 Mg Tab PO 75 mg DAILY [facility] Administration Dextrose/Water 25 ml 01/11/23 13:23 Dextrose 50% Syringe 50 Ml IVP PER PROTOCOL PRN Hypoglycemia Protocol Dextrose/Water 50 ml 01/11/23 13:23 Dextrose 50% Syringe 50 Ml IVP PER PROTOCOL PRN Hypoglycemia Protocol Ferrous Sulfate 325 mg 01/12/23 12:30 01/13/23 12:27 Ferrous Sulfate 325 Mg Tab PO 325 mg W/LUNCH [facility] Administration Heparin Sodium (Porcine) 5,000 unit 01/11/23 16:00 01/13/23 07:54 Heparin Sodium,Porcine/Pf 5,000 Unit/0.5 Ml Syringe SQ 5,000 unit Q8HR [facility] Administration Hydralazine HCl 10 mg 01/11/23 13:23 Hydralazine Hcl 20 Mg/Ml 1 Ml Vial IVP Q1H PRN Blood Pressure - High Insulin Human Regular 100 unit 101 mls @ 0 mls/hr 01/11/23 13:23 01/13/23 10:30 / Sodium Chloride IV 4 unit/hr .Q0M [facility] 4.04 mls/hr Titration Protocol Per Protocol Ketorolac Tromethamine 15 mg 01/11/23 18:00 01/13/23 12:27 Ketorolac 15 Mg/Ml 1 Ml Vial IVP 01/16/23 15:46 15 mg Q6HR [facility] Administration Magnesium Hydroxide 2,400 mg 01/12/23 09:00 Magnesium Hydroxide 2,400 Mg/10 Ml Cup PO BID PRN Constipation Metoclopramide HCl 10 mg 01/11/23 13:23 01/13/23 09:18 Metoclopramide 5 Mg/Ml 2 Ml Vial IVP 10 mg Q4H PRN Administration Nausea And Vomiting Metoprolol Tartrate 50 mg 01/12/23 21:00 01/13/23 08:05 Metoprolol Tartrate 50 Mg Tab PO 50 mg BID [facility] Administration Miscellaneous Information 1 each 01/11/23 13:23 Potassium Replacement Protocol 1 Each Misc MISCELLANE DAILY PRN Per Protocol Protocol Miscellaneous Information 1 each 01/12/23 07:06 Magnesium Replacement Protocol 1 Each Misc MISCELLANE DAILY PRN Per Protocol Protocol Mupirocin 1 applic 01/11/23 21:00 01/13/23 08:06 Mupirocin 2% Oint 22 Gm Tube NASAL 01/14/23 21:01 1 applic BID [facility] Administration Ondansetron HCl 4 mg 01/11/23 13:23 01/11/23 19:29 Ondansetron 4 Mg/2 Ml Vial IVP 4 mg Q6HR PRN Administration Nausea And Vomiting Pantoprazole Sodium 40 mg 01/13/23 07:30 01/13/23 06:48 Pantoprazole 40 Mg Tablet PO 40 mg [id number] [facility] Administration Senna/Docusate Sodium 2 each 01/11/23 21:00 01/12/23 20:19 Sennosides-Docusate Sodium 1 Each Tab PO 2 each HS [facility] Administration Sodium Chloride 10 ml 01/11/23 21:00 01/13/23 08:07 Sodium Chloride 0.9% Flush 10 Ml Syringe IV 10 ml BID [facility] Administration Warfarin Sodium 7.5 mg 01/13/23 18:00 Warfarin 7.5 Mg Tab PO 01/13/23 18:01 ONCE@1800 ONE Protocol Intake and Output 01/13/23 01/13/23 01/13/23 06:59 14:59 22:59 Intake Total 751.205 762.583 Output Total 350 555 Balance 401.205 207.583 Intake: IV 234 135 Pressure Bag (0.9 Sodium 54 15 Chloride) Sodium Chloride 0.9% 1, 180 120 000 ml @ 20 mls/hr IV . Q24H [facility] Rx#:[id number] Intake, IV Titration 17.205 17.583 Amount Insulin Regular 100 unit 17.205 17.583 In Sodium Chloride 0.9% 100 ml @ Per Protocol IV .Q0M [facility] Rx#:[id number] Oral 500 610 Output: Chest Tube Drainage 60 0 Chest Tube Bilateral 60 0 Mediastinal Urine 290 555 Other: Voiding Method Indwelling Catheter Indwelling Catheter Weight 97.6 kg 01/13/23 04:00 01/13/23 04:00
--- NOTE | 2023-01-13 16:18 | P.PN ---
Subjective Progress Note Date: 01/13/23 This 42-year-old male patient who presented for an elective aortic valve replacement surgery 01/11/2023 due to severe bicuspid aortic valve stenosis with preserved left ventricular systolic function. Patient has past medical history of diabetes mellitus maintained on oral agents metformin and glipizide, hypertension, hyperlipidemia and marijuana use. Patient is currently postop day 1 resting comfortably in chair in intensive care unit. Patient maintained on Primacor and insulin drip. Chest tube and Cordis line in place. Plans to remove right IJ [place] per cardiovascular surgery, this time patient denies chest pain or shortness breath. Patient denies nausea vomiting or diarrhea. Patient denies any urinary burning or frequency. On 01/13/2023 patient was seen and examined in the ICU he is alert and oriented 3 in no apparent distress there is no fever or chills no headache or dizziness no chest pain no shortness of breath no cough no nausea or vomiting no abdominal pain no diarrhea no blood in the stools no burning with urination no frequency or urgency and no hematuria. At this time glucose is well-controlled at 154, will discontinue insulin drip and start with insulin sliding scale, medication and labs were reviewed will follow in a.m. Objective - Vital Signs Vital signs: Vital Signs Temp 99 F 01/13/23 12:00 Pulse 88 01/13/23 12:14 Resp 19 01/13/23 12:00 BP 100/62 01/13/23 12:00 Pulse Ox 99 01/13/23 12:06 FiO2 40 01/11/23 18:00 Intake & Output 01/12/23 01/13/23 01/13/23 18:59 06:59 18:59 Intake Total 1455.578 935.042 372.583 Output Total 440 545 455 Balance 1015.578 390.042 -82.417 Weight 96.1 kg 97.6 kg Intake: IV 684 388 115 Albumin Human 25% 50 ml 50 In Empty Bag 1 bag @ 50 mls/hr IVPB ONCE ONE Rx#: [id number] Cardiac Output (0.9 70 Sodium Chloride) Pressure Bag (0.9 Sodium 84 78 15 Chloride) Sodium Chloride 0.9% 1, 430 260 100 000 ml @ 20 mls/hr IV . Q24H [facility] Rx#:[id number] ceFAZolin 2 gm In Sodium 100 Chloride 0.9% 50 ml @ 100 mls/hr IVPB Q8HR [facility] Rx# :[id number] Intake, IV Titration 41.578 47.042 17.583 Amount Insulin Regular 100 unit 41.578 47.042 17.583 In Sodium Chloride 0.9% 100 ml @ Per Protocol IV .Q0M [facility] Rx#:[id number] Oral 370 500 240 Tube Feeding 360 Output: Chest Tube Drainage 140 70 0 Chest Tube Bilateral 140 70 0 Mediastinal Urine 300 475 455 Other: Voiding Method Indwelling Catheter Indwelling Catheter Indwelling Catheter ABP, PAP, CO, CI - Last Documented Arterial Blood Pressure 106/52 Pulmonary Artery Pressure 26/14 Cardiac Output 5.3 Cardiac Index 2.6 - Exam In general patient is alert and oriented 3 in no apparent distress Head normocephalic and atraumatic Neck supple no JVD no goiter Lungs incision dressing clean dry and intact chest tube in place Heart regular rate and rhythm S1-S2, no rub or gallop Abdomen is soft nontender nondistended positive bowel sounds no hepatosplenomegaly Extremities no edema Neuro no gross focal deficit - Labs CBC & Chem 7: 01/13/23 04:00 01/13/23 04:00 Labs: Abnormal Lab Results - Last 24 Hours (Table) 01/12/23 01/12/23 01/12/23 Range/Units 13:18 14:12 15:21 WBC (3.8-10.6) k/uL RBC (4.30-5.90) m/uL Hgb (13.0-17.5) gm/dL Hct (39.0-53.0) % Plt Count (150-450) k/uL Neutrophils # (1.3-7.7) k/uL Lymphocytes # (1.0-4.8) k/uL Sodium (137-145) mmol/L POC Glucose (mg/dL) 241 H 164 H 125 H (70-110) mg/dL Calcium (8.4-10.2) mg/dL Alkaline Phosphatase (38-126) U/L Total Protein (6.3-8.2) g/dL 01/12/23 01/12/23 01/12/23 Range/Units 17:26 19:01 20:18 WBC (3.8-10.6) k/uL RBC (4.30-5.90) m/uL Hgb (13.0-17.5) gm/dL Hct (39.0-53.0) % Plt Count (150-450) k/uL Neutrophils # (1.3-7.7) k/uL Lymphocytes # (1.0-4.8) k/uL Sodium (137-145) mmol/L POC Glucose (mg/dL) 130 H 157 H 163 H (70-110) mg/dL Calcium (8.4-10.2) mg/dL Alkaline Phosphatase (38-126) U/L Total Protein (6.3-8.2) g/dL 01/12/23 01/13/23 01/13/23 Range/Units 21:11 00:11 01:05 WBC (3.8-10.6) k/uL RBC (4.30-5.90) m/uL Hgb (13.0-17.5) gm/dL Hct (39.0-53.0) % Plt Count (150-450) k/uL Neutrophils # (1.3-7.7) k/uL Lymphocytes # (1.0-4.8) k/uL Sodium (137-145) mmol/L POC Glucose (mg/dL) 136 H 140 H 142 H (70-110) mg/dL Calcium (8.4-10.2) mg/dL Alkaline Phosphatase (38-126) U/L Total Protein (6.3-8.2) g/dL 01/13/23 01/13/23 01/13/23 Range/Units 04:00 04:00 06:52 WBC 11.6 H (3.8-10.6) k/uL RBC 2.93 L (4.30-5.90) m/uL Hgb 9.0 L (13.0-17.5) gm/dL Hct 26.4 L (39.0-53.0) % Plt Count 111 L (150-450) k/uL Neutrophils # 9.7 H (1.3-7.7) k/uL Lymphocytes # 0.9 L (1.0-4.8) k/uL Sodium 134 L (137-145) mmol/L POC Glucose (mg/dL) 166 H (70-110) mg/dL Calcium 8.3 L (8.4-10.2) mg/dL Alkaline Phosphatase 29 L (38-126) U/L Total Protein 5.8 L (6.3-8.2) g/dL 01/13/23 01/13/23 01/13/23 Range/Units 07:56 09:22 10:29 WBC (3.8-10.6) k/uL RBC (4.30-5.90) m/uL Hgb (13.0-17.5) gm/dL Hct (39.0-53.0) % Plt Count (150-450) k/uL Neutrophils # (1.3-7.7) k/uL Lymphocytes # (1.0-4.8) k/uL Sodium (137-145) mmol/L POC Glucose (mg/dL) 174 H 141 H 136 H (70-110) mg/dL Calcium (8.4-10.2) mg/dL Alkaline Phosphatase (38-126) U/L Total Protein (6.3-8.2) g/dL 01/13/23 Range/Units 12:24 WBC (3.8-10.6) k/uL RBC (4.30-5.90) m/uL Hgb (13.0-17.5) gm/dL Hct (39.0-53.0) % Plt Count (150-450) k/uL Neutrophils # (1.3-7.7) k/uL Lymphocytes # (1.0-4.8) k/uL Sodium (137-145) mmol/L POC Glucose (mg/dL) 115 H (70-110) mg/dL Calcium (8.4-10.2) mg/dL Alkaline Phosphatase (38-126) U/L Total Protein (6.3-8.2) g/dL Assessment and Plan Assessment: 1. Severe bicuspid aortic valve stenosis status post aortic valve replacement on 01/11/[address] Joseph 2. Diabetes mellitus type 2 patient maintained on oral agents at home. Insulin drip ordered postoperatively 3. History of essential hypertension 4. History of hyperlipidemia 5. Family history of coronary artery disease 6. Daily marijuana use At this time patient maintained in the intensive care unit Chest tube in place Maintained on insulin drip Thank you for this consultation we'll continue to follow patient closely throughout stay
[2023-01-13 16:42] LABS: Glucose,Whole Blood 217 mg/dL (70-110)
[2023-01-13] MEDS: SODIUM CHLORIDE 0.9% 1,000 ML IV SCH (16:46)
[2023-01-13] MEDS ORDERED: DEXTROSE 50% SYRINGE 50 ML IVP PRN ×2 (16:46)
[2023-01-13] MEDS: INSULIN ASPART (NovoLOG) 100 UNIT/ML VIAL SQ SCH ×2 (16:53→21:37)
[2023-01-13] MEDS ORDERED: WARFARIN 7.5 MG TAB PO ONE (18:00)
[2023-01-13 21:22] LABS: Glucose,Whole Blood 165 mg/dL (70-110)
[2023-01-13] MEDS: SENNOSIDES-DOCUSATE SODIUM 1 EACH TAB PO SCH (21:38)
[2023-01-14] MEDS: HEPARIN SODIUM,PORCINE/PF 5,000 UNIT/0.5 ML SYRINGE SQ SCH ×4 (00:20→23:02)
[2023-01-14] MEDS: KETOROLAC 15 MG/ML 1 ML VIAL IVP SCH ×2 (00:21→06:09)
[2023-01-14] MEDS: PANTOPRAZOLE 40 MG TABLET PO SCH (06:10)
[2023-01-14 06:25] LABS: Glucose,Whole Blood 185 mg/dL (70-110)
[2023-01-14] MEDS: INSULIN ASPART (NovoLOG) 100 UNIT/ML VIAL SQ SCH ×4 (06:27→20:26)
[2023-01-14] MEDS: ASPIRIN 325 MG TAB PO SCH (08:01)
[2023-01-14] MEDS: AMIODARONE 200 MG TAB PO SCH ×2 (08:01→20:26)
[2023-01-14] MEDS: ATORVASTATIN 40 MG TAB PO SCH (08:01)
[2023-01-14] MEDS: CLOPIDOGREL 75 MG TAB PO SCH (08:03)
[2023-01-14] MEDS: METOPROLOL TARTRATE 25 MG TAB PO SCH ×2 (08:03→20:26)
[2023-01-14] MEDS: MUPIROCIN 2% OINT 22 GM TUBE NASAL SCH ×2 (08:03→20:26)
[2023-01-14] MEDS: IPRATROPIUM-ALBUTEROL 3 ML NEB INHALATION SCH ×4 (08:12→20:43)
--- NOTE | 2023-01-14 08:13 | XR ---
EXAMINATION TYPE: XR chest 2V DATE OF EXAM: 01/14/2023 COMPARISON: 01/13/2023 HISTORY: 42-year-old male postop aVR TECHNIQUE: PA and lateral views FINDINGS: Median sternotomy wires are present with prosthetic aortic valve. Heart mildly enlarged. Some blunted costophrenic angles persists likely small effusions. Patchy retrocardiac atelectasis persists. Other beck, bibasilar opacities are improving. IMPRESSION: Similar cardiomegaly. Small effusions persist along with patchy retrocardiac atelectasis. Otherwise, patchy bibasilar opacities are improving.
[2023-01-14 09:08] LABS: Basophils % (A) 0 %; Eosinophils # (A) 0.1 k/uL (0-0.7); Eosinophils % (A) 1 %; HCT 24.5 % (39.0-53.0); HGB 8.1 gm/dL (13.0-17.5); Lymphocytes # (A) 1.1 k/uL (1.0-4.8); Lymphocytes % (A) 12 %; MCH 29.6 pg (25.0-35.0); MCV 89.8 fL (80.0-100.0); Mean Platelet Volume 8.8; Monocytes # (A) 0.5 k/uL (0-1.0); Monocytes % (A) 5 %; Neutrophils # (A) 7.1 k/uL (1.3-7.7); Neutrophils % (A) 80 %; Platelet Count 105 k/uL (150-450); RBC 2.73 m/uL (4.30-5.90); RDW 13.9 % (11.5-15.5); WBC 8.8 k/uL (3.8-10.6)
[2023-01-14 09:22] LABS: INR 1.2 (<1.2); Prothrombin Time 11.9 sec (9.0-12.0)
--- NOTE | 2023-01-14 09:24 | P.PN ---
Subjective Progress Note Date: 01/14/23 HISTORY OF PRESENTING ILLNESS Patient is a pleasant 42-year-old male with history of hypertension, diabetes mellitus, hyperlipidemia, marijuana use, family history of coronary artery disease, bicuspid aortic valve with severe aortic stenosis. He follows with Dr Raygoza. Patient is on it for elective aortic valve replacement and had a 23 mm mechanical OnX valve placed with left atrial appendage closure. He has had persistent sinus tachycardia to 100s 120 range however no atrial fibrillation. He is off of any pressors. Currently denies any chest pain or pressure other than with deep inspiration. Blood pressure stable. 01/14 Patient is seen today in follow-up. He states he is feeling rundown but o therwise shortness of breath is okay. He has a little appetite. Heart rate is in the 90s, blood pressure 112/69, pulse ox 95% on room air. INR 1.2. Patient states he is probably going home on Tuesday. PHYSICAL EXAMINATION Vital signs reviewed. CONSTITUTIONAL: No apparent distress. HEENT: Head is normocephalic. Pupils are equal, round. Sclerae anicteric. Mucous membranes of the mouth are moist. No JVD. No carotid bruit. CHEST EXAMINATION: Lungs are clear to auscultation. No chest wall tenderness is noted on palpation or with deep breathing. HEART EXAMINATION: Regular rate and rhythm. S1, S2 heard. No murmurs, gallops or rub. ABDOMEN: Soft, nontender. Positive bowel sounds. EXTREMITIES: 2+ peripheral pulses, no lower extremity edema and no calf tenderness. NEUROLOGIC EXAMINATION: Patient is awake, alert and oriented x3. ASSESSMENT 1. Severe aortic stenosis status post mechanical AVR with 23mm Saeed 2. Hypertension 3. Hyperlipidemia 4. Diabetes mellitus type 2 5. Sinus tachycardia 6. Anemia, expected PLAN Patient appears very recovering from his aortic valve replacement. Continue with metoprolol which he has been tolerating well. Continue current supportive care. Coumadin started with goal INR 2-3 for first 3 months then 1.5-2.0. Nurse practitioner note has been reviewed, I agree with the documented findings and plan of care. Patient was seen and examined. Objective - Vital Signs Vital signs: Vital Signs Temp 98.4 F 01/14/23 03:14 Pulse 96 01/14/23 08:13 Resp 20 01/14/23 03:14 BP 112/69 01/14/23 03:14 Pulse Ox 95 01/14/23 08:13 FiO2 21 01/14/23 08:13 Intake & Output 01/13/23 01/14/23 01/14/23 18:59 06:59 18:59 Intake Total 1012.583 Output Total 555 300 Balance 457.583 -300 Weight 96.9 kg Intake: IV 135 Pressure Bag (0.9 Sodium 15 Chloride) Sodium Chloride 0.9% 1, 120 000 ml @ 20 mls/hr IV . Q24H [facility] Rx#:[id number] Intake, IV Titration 17.583 Amount Insulin Regular 100 unit 17.583 In Sodium Chloride 0.9% 100 ml @ Per Protocol IV .Q0M [facility] Rx#:[id number] Oral 860 Output: Chest Tube Drainage 0 Chest Tube Bilateral 0 Mediastinal Urine 555 300 Other: Voiding Method Indwelling Catheter Toilet # Voids 1 ABP, PAP, CO, CI - Last Documented Arterial Blood Pressure 106/52 Pulmonary Artery Pressure 26/14 Cardiac Output 5.3 Cardiac Index 2.6 - Labs CBC & Chem 7: 01/14/23 08:46 01/13/23 04:00 Labs: Abnormal Lab Results - Last 24 Hours (Table) 01/13/23 01/13/23 01/13/23 Range/Units 09:22 10:29 12:24 POC Glucose (mg/dL) 141 H 136 H 115 H (70-110) mg/dL 01/13/23 01/13/23 01/14/23 Range/Units 16:41 21:20 06:23 POC Glucose (mg/dL) 217 H 165 H 185 H (70-110) mg/dL
[2023-01-14 09:38] LABS: ALT 32 U/L (4-49); AST 46 U/L (17-59); African American GFR (CKD) >90 (>60 ml/min/1.73 sqM); Albumin 3.2 g/dL (3.5-5.0); Alkaline Phosphatase 38 U/L (38-126); Anion Gap 10 mmol/L; Blood Urea Nitrogen 22 mg/dL (9-20); Carbon Dioxide 23 mmol/L (22-30); Chloride 100 mmol/L (98-107); Glucose 222 mg/dL (74-99); Non-African American GFR(CKD) 87 (>60 ml/min/1.73 sqM); Potassium 3.7 mmol/L (3.5-5.1); Sodium 133 mmol/L (137-145); Total Bilirubin 0.9 mg/dL (0.2-1.3); Total Protein 5.5 g/dL (6.3-8.2)
--- NOTE | 2023-01-14 10:02 | P.PN ---
Subjective Progress Note Date: 01/14/23 This 42-year-old male patient who presented for an elective aortic valve replacement surgery 01/11/2023 due to severe bicuspid aortic valve stenosis with preserved left ventricular systolic function. Patient has past medical history of diabetes mellitus maintained on oral agents metformin and glipizide, hypertension, hyperlipidemia and marijuana use. Patient is currently postop day 1 resting comfortably in chair in intensive care unit. Patient maintained on Primacor and insulin drip. Chest tube and Cordis line in place. Plans to remove right IJ [place] per cardiovascular surgery, this time patient denies chest pain or shortness breath. Patient denies nausea vomiting or diarrhea. Patient denies any urinary burning or frequency. On 01/13/2023 patient was seen and examined in the ICU he is alert and oriented 3 in no apparent distress there is no fever or chills no headache or dizziness no chest pain no shortness of breath no cough no nausea or vomiting no abdominal pain no diarrhea no blood in the stools no burning with urination no frequency or urgency and no hematuria. At this time glucose is well-controlled at 154, will discontinue insulin drip and start with insulin sliding scale, medication and labs were reviewed will follow in a.m.. On 01/14/2023 patient was seen and examined on the telemetry floor he is out of ICU today, he is alert and oriented 3 and denies any complaints , there is no fever or chills no headache or dizziness, no chest pain no shortness of breath no cough no nausea or vomiting no abdominal pain no diarrhea no blood in the stools no burning with urination no frequency or urgency and no hematuria. Objective - Vital Signs Vital signs: Vital Signs Temp 98.5 F 01/14/23 08:10 Pulse 100 01/14/23 08:25 Resp 19 01/14/23 08:10 BP 122/75 01/14/23 08:10 Pulse Ox 95 01/14/23 08:13 FiO2 21 01/14/23 08:13 Intake & Output 01/13/23 01/14/23 01/14/23 18:59 06:59 18:59 Intake Total 1012.583 350 Output Total 555 300 Balance 457.583 -300 350 Weight 96.9 kg Intake: IV 135 Pressure Bag (0.9 Sodium 15 Chloride) Sodium Chloride 0.9% 1, 120 000 ml @ 20 mls/hr IV . Q24H [facility] Rx#:[id number] Intake, IV Titration 17.583 Amount Insulin Regular 100 unit 17.583 In Sodium Chloride 0.9% 100 ml @ Per Protocol IV .Q0M [facility] Rx#:[id number] Oral 860 350 Output: Chest Tube Drainage 0 Chest Tube Bilateral 0 Mediastinal Urine 555 300 Other: Voiding Method Indwelling Catheter Toilet Toilet # Voids 1 ABP, PAP, CO, CI - Last Documented Arterial Blood Pressure 106/52 Pulmonary Artery Pressure 26/14 Cardiac Output 5.3 Cardiac Index 2.6 - Exam In general patient is alert and oriented 3 in no apparent distress Head normocephalic and atraumatic Neck supple no JVD no goiter Lungs incision dressing clean dry and intact chest tube in place Heart regular rate and rhythm S1-S2, no rub or gallop Abdomen is soft nontender nondistended positive bowel sounds no hepatosplenomegaly Extremities no edema Neuro no gross focal deficit - Labs CBC & Chem 7: 01/14/23 08:46 01/14/23 08:46 Labs: Abnormal Lab Results - Last 24 Hours (Table) 01/13/23 01/13/23 01/13/23 Range/Units 09:22 10:29 12:24 RBC (4.30-5.90) m/uL Hgb (13.0-17.5) gm/dL Hct (39.0-53.0) % Plt Count (150-450) k/uL POC Glucose (mg/dL) 141 H 136 H 115 H (70-110) mg/dL 01/13/23 01/13/23 01/14/23 Range/Units 16:41 21:20 06:23 RBC (4.30-5.90) m/uL Hgb (13.0-17.5) gm/dL Hct (39.0-53.0) % Plt Count (150-450) k/uL POC Glucose (mg/dL) 217 H 165 H 185 H (70-110) mg/dL 01/14/23 Range/Units 08:46 RBC 2.73 L (4.30-5.90) m/uL Hgb 8.1 L (13.0-17.5) gm/dL Hct 24.5 L (39.0-53.0) % Plt Count 105 L (150-450) k/uL POC Glucose (mg/dL) (70-110) mg/dL Assessment and Plan Assessment: 1. Severe bicuspid aortic valve stenosis status post aortic valve replacement on 01/11/[address] Joseph 2. Diabetes mellitus type 2 patient maintained on oral agents at home. Insulin drip ordered postoperatively 3. History of essential hypertension 4. History of hyperlipidemia 5. Family history of coronary artery disease 6. Daily marijuana use At this time patient maintained in the intensive care unit Chest tube in place Maintained on insulin drip Thank you for this consultation we'll continue to follow patient closely throughout stay
--- NOTE | 2023-01-14 10:34 | P.PN ---
Subjective Progress Note Date: 01/14/23 Principal diagnosis: Severe bicuspid aortic valve stenosis with preserved left ventricular systolic function. Past medical history significant for diabetes mellitus, hypertension, hyperlipidemia, is a lifetime nonsmoker, daily marijuana use and has a family history of coronary artery disease. POD #3 Aortic valve replacement using a 23 mm mechanical prosthesis, OnX valve with conform sewing ring, exclusion of the left atrial appendage using a 35 mm atriclip, intraoperative transesophageal echocardiogram and epi-aortic ultrasound. Postoperative acute blood loss anemia, expected given hemodilution and cardiopulmonary bypass Tiny right sided apical pneumothorax, expected The patient was seen and examined at his bedside today 01/14/2023 on the third floor cardiac stepdown unit. Currently sitting up to bedside chair, is awake, alert, oriented 3 and is in no acute apparent distress. Denies any complaints of shortness of breath although is complaining of some surgical type pain currently rating his pain 3 or 4 out of 10 on the pain scale. Oxygen saturations are 95% on room air and he is achieving 2000 mL on his incentive spirometry with encouragement. His atrial and ventricular epicardial pacemaker wires and mediastinal chest tubes were removed yesterday without incident. He reports he has been up ambulating in the cardiac stepdown unit hallway with [place] assistance from nursing and therapy staff. Remote telemetry showing normal sinus rhythm heart rate 91 BPM. T-max temperature in the last 24 hours is 100.4F. Chest x-ray was reviewed. He was started on Coumadin 7.5 mg by mouth 1, we'll continue to monitor PT and INRs. No new concerns. Objective - Vital Signs Vital signs: Vital Signs Temp 98.4 F 01/14/23 03:14 Pulse 97 01/14/23 03:14 Resp 20 01/14/23 03:14 BP 112/69 01/14/23 03:14 Pulse Ox 95 01/14/23 03:14 FiO2 40 01/11/23 18:00 Intake & Output 01/13/23 01/14/23 01/14/23 18:59 06:59 18:59 Intake Total 1012.583 Output Total 555 300 Balance 457.583 -300 Weight 96.9 kg Intake: IV 135 Pressure Bag (0.9 Sodium 15 Chloride) Sodium Chloride 0.9% 1, 120 000 ml @ 20 mls/hr IV . Q24H [facility] Rx#:[id number] Intake, IV Titration 17.583 Amount Insulin Regular 100 unit 17.583 In Sodium Chloride 0.9% 100 ml @ Per Protocol IV .Q0M [facility] Rx#:[id number] Oral 860 Output: Chest Tube Drainage 0 Chest Tube Bilateral 0 Mediastinal Urine 555 300 Other: Voiding Method Indwelling Catheter Toilet # Voids 1 ABP, PAP, CO, CI - Last Documented Arterial Blood Pressure 106/52 Pulmonary Artery Pressure 26/14 Cardiac Output 5.3 Cardiac Index 2.6 - Exam CONSTITUTIONAL: Sitting up to the bedside chair on the cardiac stepdown unit, appears comfortable, cooperative, no apparent acute distress. HEENT: Neck is supple, no JVD, no lymphadenopathy. RESPIRATORY: Lungs sounds essentially clear throughout, diminished to his bila teral bases. Respirations are symmetrical and nonlabored. Currently on room air with oxygen saturations 95%. Able to achieve 2000 mL on his incentive spirometry. Strong cough. CARDIOVASCULAR: Regular rhythm and rate. S1 and S2 present, negative for S3, gallop or murmur, positive valvular click. Sternum is stable. Palpable peripheral pulses bilaterally, no edema to his bilateral lower extremities. No calf pain or tenderness noted. Heart hugger in place with patient demonstrating appropriate use. Knee-high DONNA hose and sequential compression devices in place to his bilateral lower extremities. GASTROINTESTINAL: Abdomen soft, nontender, nondistended. Active bowel sounds present 4 quadrants. Tolerating diet. Passing flatus. No guarding or rigidity. GENITOURINARY: Continues to void. 300 mL of urine output in the last 8 hours. INTEGUMENTARY: Skin is warm and dry with no evidence of clubbing or cyanosis. Midline sternal incision clean dry and well approximated, covered with dry intact dressing. NEUROLOGIC: Cranial nerves II through XII intact. No focal deficits. MUSKULOSKELETAL: Able to move all extremities, strength equal bilaterally. PSYCHIATRIC: Alert and oriented to person place and time, appropriate affect, intact judgment and insight. - Allied health notes Allied health notes reviewed: nursing - Labs CBC & Chem 7: 01/14/23 08:46 01/14/23 08:46 Labs: Abnormal Lab Results - Last 24 Hours (Table) 01/13/23 01/13/23 01/13/23 Range/Units 09:22 10:29 12:24 POC Glucose (mg/dL) 141 H 136 H 115 H (70-110) mg/dL 01/13/23 01/13/23 01/14/23 Range/Units 16:41 21:20 06:23 POC Glucose (mg/dL) 217 H 165 H 185 H (70-110) mg/dL - Imaging and Cardiology Chest x-ray: report reviewed, image reviewed Assessment and Plan Assessment: Severe bicuspid aortic valve stenosis with preserved LV systolic function, status post aortic valve replacement using a 23 mm On-X mechanical prosthesis Diabetes mellitus type 2 Hypertension Hyperlipidemia Family history of coronary artery disease Daily marijuana use Lifetime nonsmoker Postoperative acute blood loss anemia, expected given hemodilution and cardiopulmonary bypass Tiny right sided apical pneumothorax, expected Plan: Continue to maximize medical therapy with aspirin, Plavix, statin, and beta isabel. Once the patient's INR is therapeutic on Coumadin we will discontinue the Plavix, continue aspirin 325 mg by mouth daily and Protonix 40 mg by mouth d aily. Metoprolol tartrate was increased to 75 mg by mouth twice a day. Continue amiodarone 400 mg by mouth twice a day for A. fib prophylaxis. Wean O2 as tolerated. Encourage incentive spirometry use 10 times every hour while awake. Bronchodilators per pulmonology. Increase activity as tolerated. PT/OT/cardiac rehab following. Will monitor daily labs and chest x-rays. Electrolyte replacement per protocol. Continue Ferrous sulfate/vitamin C. Insulin management per internal medicine. Hemoglobin A1c preoperative 7.0%, patient is a diabetic, keep tight blood sugar control to promote sternal wound healing. GI/DVT prophylaxis. Pain control with current medication regimen. Cntinue to record strict accurate intake and output. May bladder scan every 6 hours and when necessary postvoid residual, if greater than 300 mL of residual May straight cath. Daily weights. Shower daily We will give Coumadin 7.5 mg by mouth today, goal INR for the first 3 months to be 2.0-3.0, and after the 3 months goal rate will be 1.5-2.0. We will check daily PT and INRs. Lasix 20 mg IV 1 now and potassium chloride 10 mEq by mouth 1 now. More recommendations to follow based on patient's clinical course. Time with Patient: Greater than 30
[2023-01-14] MEDS ORDERED: POTASSIUM CHLORIDE ER 20 MEQ TAB.ER PO SCH (11:00)
[2023-01-14] MEDS: FERROUS SULFATE 325 MG TAB PO SCH (11:37)
[2023-01-14] MEDS: ASCORBIC ACID 500 MG TAB PO SCH (11:37)
[2023-01-14] MEDS: ACETAMINOPHEN TAB 500 MG TAB PO PRN ×2 (11:39→22:32)
[2023-01-14 12:08] LABS: Glucose,Whole Blood 219 mg/dL (70-110)
[2023-01-14 14:14] VITALS: BMI 32.4
--- NOTE | 2023-01-14 16:02 | P.PN ---
Subjective Progress Note Date: 01/11/23 Principal diagnosis: Status post aortic valve replacement postoperative day #3 this is a 42-year-old white male, primarily a patient of Dr. Segundo, patient was referred recently to cardiology, patient developed history of heart murmur for many years. However recently the patient has been complaining of weakness fatigue and some shortness of breath on exertion, underwent further cardiac workup, he was found to have severe aortic stenosis, left ventricular hypertrophy, no previous history no chest pain, but he had intermittent episodes of palpitations. Patient is known to have history of type 2 diabetes without complications, hypertension, dyslipidemia, and strong family history of coronary artery disease.recent cardiac catheterizationshowed severe bicuspid aortic valve stenosis and mild nonocclusive coronary artery disease. Hence the patient was referred for aortic valve replacement. This was done today by Dr. Joseph, patient is now in the ICU on mechanical ventilation, and this consult was initiatedpatient is maintained ont[place] volume of tidal volume of 500,assist control rate of 20, PEEP of 8 and FiO2 100%.ABG showed a pO2 of 351 pCO2 44 pH of 7.35, hence I cut down the FiO2 down to 40%.chest x-ray showed no evidence of active disease. Adequate placement of endotracheal tube, lines, and mediastinal chest tube. Patient is sedated, on propofol, he is also on milrinone, and he seems to be hemodynamically stable at this point. Reevaluated today on 01/12/2023, patient is now postoperative day #1, he is status post aortic valve replacement using a 23 mm mechanical prosthesis. Patient was extubated uneventfully a few hours after he arrived to the ICU. As a matter of fact he was extubated at 6:15 PM last evening. Today the patient is in no distress, he is on 2 L nasal cannula saturation 97%, denies any specific complaints. Not requiring any drips at this point except insulin drip for his elevated blood sugar. Hemodynamic showed cardiac output 5.4, pulmonary artery pressure 31/17 CVP of 11. Chest tubes were noted chest x-ray was noted, small tiny right apical pneumothorax is noted. Right-sided chest tube remains in place, no megaly Patient was reevaluated today on 01/13/2023, his postoperative day #2 chest x-ray continues to show small tiny right apical pneumothorax, there is no leak noted in the chest tube, clinically the patient is doing great, asymptomatic, remains on room air. Remains on insulin drip at 4.5 units per hour. Otherwise the patient is not requiring any drips. Chest x-ray minimal bibasilar atelectasis is noted and again apical right-sided pneumothorax very minimal WBC count is 11.6 hemoglobin is 9. Electrolytes and basic metabolic profile are normal Reevaluated today on 01/14/2023, patient is doing well, relatively asymptomatic his postoperative day #3 no major issues over the last 24 hours. Patient is do ing great, will likely be discharged home in the next 24 hours. Objective - Vital Signs Vital signs: Vital Signs Temp 98.5 F 01/14/23 08:10 Pulse 96 01/14/23 15:51 Resp 18 01/14/23 15:10 BP 118/70 01/14/23 15:10 Pulse Ox 94 L 01/14/23 15:10 FiO2 21 01/14/23 08:13 Intake & Output 01/13/23 01/14/23 01/14/23 18:59 06:59 18:59 Intake Total 1012.583 530 Output Total 555 300 Balance 457.583 -300 530 Weight 96.9 kg 96.9 kg Intake: IV 135 Pressure Bag (0.9 Sodium 15 Chloride) Sodium Chloride 0.9% 1, 120 000 ml @ 20 mls/hr IV . Q24H HUANG Rx#:[id number] Intake, IV Titration 17.583 Amount Insulin Regular 100 unit 17.583 In Sodium Chloride 0.9% 100 ml @ Per Protocol IV .Q0M HUANG Rx#:[id number] Oral 860 530 Output: Chest Tube Drainage 0 Chest Tube Bilateral 0 Mediastinal Urine 555 300 Other: Voiding Method Indwelling Catheter Toilet Toilet # Voids 1 5 # Bowel Movements 5 ABP, PAP, CO, CI - Last Documented Arterial Blood Pressure 106/52 Pulmonary Artery Pressure 26/14 Cardiac Output 5.3 Cardiac Index 2.6 - Exam Physical Exam: Revealed 42-year-old white male in no distress. Head: Atraumatic, normocephalic. HEENT:[Neck is supple.] [No neck masses.] [No thyromegaly.] [No JVD.] Chest: [Clear throughout, no crackles, no rhonchi, no wheezes.] All chest tubes have been removed Cardiac Exam: [Normal S1 and S2, no S3 gallop, no murmur.] Abdomen: [Soft, nontender, no megaly, no rebound, no guarding, normal bowel sounds.] Extremities: [No clubbing, no edema, no cyanosis.] Neurological Exam: [No focal neurologic deficit.] Alert and oriented 3. Psychiatric: Normal mood affect and normal mental status. Skin: No rashes - Labs CBC & Chem 7: 01/14/23 08:46 01/14/23 08:46 Labs: Abnormal Lab Results - Last 24 Hours (Table) 01/13/23 01/13/23 01/14/23 Range/Units 16:41 21:20 06:23 RBC (4.30-5.90) m/uL Hgb (13.0-17.5) gm/dL Hct (39.0-53.0) % Plt Count (150-450) k/uL INR (<1.2) Sodium (137-145) mmol/L BUN (9-20) mg/dL Glucose (74-99) mg/dL POC Glucose (mg/dL) 217 H 165 H 185 H (70-110) mg/dL Calcium (8.4-10.2) mg/dL Total Protein (6.3-8.2) g/dL Albumin (3.5-5.0) g/dL 01/14/23 01/14/23 01/14/23 Range/Units 08:46 08:46 08:46 RBC 2.73 L (4.30-5.90) m/uL Hgb 8.1 L (13.0-17.5) gm/dL Hct 24.5 L (39.0-53.0) % Plt Count 105 L (150-450) k/uL INR 1.2 H (<1.2) Sodium 133 L (137-145) mmol/L BUN 22 H (9-20) mg/dL Glucose 222 H (74-99) mg/dL POC Glucose (mg/dL) (70-110) mg/dL Calcium 8.0 L (8.4-10.2) mg/dL Total Protein 5.5 L (6.3-8.2) g/dL Albumin 3.2 L (3.5-5.0) g/dL 01/14/23 Range/Units 12:06 RBC (4.30-5.90) m/uL Hgb (13.0-17.5) gm/dL Hct (39.0-53.0) % Plt Count (150-450) k/uL INR (<1.2) Sodium (137-145) mmol/L BUN (9-20) mg/dL Glucose (74-99) mg/dL POC Glucose (mg/dL) 219 H (70-110) mg/dL Calcium (8.4-10.2) mg/dL Total Protein (6.3-8.2) g/dL Albumin (3.5-5.0) g/dL Assessment and Plan Assessment: impression: Severe bicuspid aortic valve stenosis with preserved LV systolic function, status post aortic valve replacement.using a 23 mm mechanical prosthesis. Postoperative day #3 Type 2 diabetes without complications Benign essential hypertension Dyslipidemia Family history of coronary artery disease Tobacco dependence syndrome Small tiny right apical pneumothorax, expected. Recommendation: Incentive spirometry Continue to ambulate D chest x-ray today is reassuring aily monitoring of x-rays of the chest Increase activity as tolerated GI and DVT prophylaxis Continue insulin and address sugars accordingly. We'll clear the patient to be discharged home in the next 24 hours if cleared by thoracic surgery We'll continue to follow. Time with Patient: Less than 30
[2023-01-14 16:09] LABS: Glucose,Whole Blood 223 mg/dL (70-110)
[2023-01-14] MEDS ORDERED: WARFARIN 7.5 MG TAB PO ONE (18:00)
[2023-01-14 20:17] LABS: Glucose,Whole Blood 189 mg/dL (70-110)
[2023-01-14] MEDS: SENNOSIDES-DOCUSATE SODIUM 1 EACH TAB PO SCH (20:17)
[2023-01-15 06:09] LABS: Glucose,Whole Blood 196 mg/dL (70-110)
[2023-01-15] MEDS: INSULIN ASPART (NovoLOG) 100 UNIT/ML VIAL SQ SCH ×4 (06:25→20:47)
[2023-01-15] MEDS: PANTOPRAZOLE 40 MG TABLET PO SCH (06:25)
[2023-01-15] MEDS ORDERED: LACTULOSE 20 GM/30 ML CUP PO ONE (07:54)
[2023-01-15] MEDS: ATORVASTATIN 40 MG TAB PO SCH (08:11)
[2023-01-15] MEDS: ASPIRIN 325 MG TAB PO SCH (08:11)
[2023-01-15] MEDS: ACETAMINOPHEN TAB 500 MG TAB PO PRN ×2 (08:11→19:23)
[2023-01-15] MEDS: CLOPIDOGREL 75 MG TAB PO SCH (08:11)
[2023-01-15] MEDS: AMIODARONE 200 MG TAB PO SCH ×2 (08:11→20:46)
[2023-01-15] MEDS: HEPARIN SODIUM,PORCINE/PF 5,000 UNIT/0.5 ML SYRINGE SQ SCH (08:11)
[2023-01-15] MEDS: METOPROLOL TARTRATE 25 MG TAB PO SCH ×2 (08:11→20:47)
[2023-01-15] MEDS: IPRATROPIUM-ALBUTEROL 3 ML NEB INHALATION SCH ×4 (08:25→20:19)
--- NOTE | 2023-01-15 10:30 | XR ---
EXAMINATION TYPE: XR chest 2V DATE OF EXAM: 01/15/2023 COMPARISON: 01/14/2023 HISTORY: 42-year-old male postoperative air and bowel replacement TECHNIQUE: PA and lateral views FINDINGS: Heart mildly enlarged. Median sternotomy wires are prosthetic aortic valve. There are small bilateral pleural effusions. Patchy retrocardiac opacity remains. No appreciable pneumothorax. IMPRESSION: Status post median sternotomy with ongoing small effusions. Postsurgical retrocardiac atelectasis.
[2023-01-15 10:41] LABS: HCT 25.8 % (39.0-53.0); HGB 8.5 gm/dL (13.0-17.5); MCHC 32.9 g/dL (31.0-37.0); MCV 91.2 fL (80.0-100.0); Mean Platelet Volume 8.9; Platelet Count 157 k/uL (150-450); RBC 2.83 m/uL (4.30-5.90); WBC 9.3 k/uL (3.8-10.6)
[2023-01-15 10:48] LABS: INR 1.8 (<1.2)
[2023-01-15 10:57] LABS: African American GFR (CKD) >90 (>60 ml/min/1.73 sqM); Anion Gap 10 mmol/L; Blood Urea Nitrogen 16 mg/dL (9-20); Calcium 8.2 mg/dL (8.4-10.2); Carbon Dioxide 25 mmol/L (22-30); Chloride 101 mmol/L (98-107); Glucose 239 mg/dL (74-99); Magnesium 2.3 mg/dL (1.6-2.3); Non-African American GFR(CKD) >90 (>60 ml/min/1.73 sqM); Potassium 4.4 mmol/L (3.5-5.1); Sodium 136 mmol/L (137-145)
--- NOTE | 2023-01-15 11:12 | P.PN ---
Subjective Progress Note Date: 01/15/23 Principal diagnosis: Severe bicuspid aortic valve stenosis with preserved left ventricular systolic function. Past medical history significant for diabetes mellitus, hypertension, hyperlipidemia, is a lifetime nonsmoker, daily marijuana use and has a family history of coronary artery disease. POD #4 Aortic valve replacement using a 23 mm mechanical prosthesis, OnX valve with conform sewing ring, exclusion of the left atrial appendage using a 35 mm atriclip, intraoperative transesophageal echocardiogram and epi-aortic ultrasound. Postoperative acute blood loss anemia, expected given hemodilution and cardiopulmonary bypass Tiny right sided apical pneumothorax, expected, resolved The patient was seen and examined in follow-up today 01/15/2023 at his bedside on the cardiac stepdown unit. His currently sitting up to bedside chair, is awake, alert, oriented 3 in no acute apparent distress. Denies any complaints of pain or shortness of breath at this time, although is complaining of being gassy and bloated. He reports he has been up ambulating in the cardiac stepdown unit hallway independently and also with therapy staff. Remote telemetry showing normal sinus rhythm heart rate 97 BPM. Oxygen saturations are 95% on room air and he is achieving 2000 mL on his incentive spirometry with encouragement. Chest x-ray was reviewed. T-max temperature in the last 24 hours is 100.1F. No new concerns. The patient was given Coumadin 7.5 mg by mouth yesterday for an INR of 1.2. Laboratory results remain pending this morning. Objective - Vital Signs Vital signs: Vital Signs Temp 98.6 F 01/15/23 03:04 Pulse 87 01/15/23 03:04 Resp 18 01/15/23 03:04 BP 129/78 01/15/23 03:04 Pulse Ox 95 01/15/23 03:04 FiO2 21 01/14/23 08:13 Intake & Output 01/14/23 01/15/23 01/15/23 18:59 06:59 18:59 Intake Total 710 Output Total 800 Balance 710 -800 Weight 96.9 kg Intake: Oral 710 Output: Urine 800 Other: Voiding Method Toilet Toilet # Voids 9 300 # Bowel Movements 9 ABP, PAP, CO, CI - Last Documented Arterial Blood Pressure 106/52 Pulmonary Artery Pressure 26/14 Cardiac Output 5.3 Cardiac Index 2.6 - Exam CONSTITUTIONAL: Sitting up to the bedside chair on the cardiac stepdown unit, appears comfortable, cooperative, no apparent acute distress. HEENT: Neck is supple, no JVD, no lymphadenopathy. RESPIRATORY: Lungs sounds essentially clear throughout, diminished to his bilateral bases. Respirations are symmetrical and nonlabored. Currently on room air with oxygen saturations 95%. Able to achieve 2000 mL on his incentive spi rometry. Strong cough. CARDIOVASCULAR: Regular rhythm and rate. S1 and S2 present, negative for S3, gallop or murmur, positive valvular click. Sternum is stable. Palpable peripheral pulses bilaterally, no edema to his bilateral lower extremities. No calf pain or tenderness noted. Heart hugger in place with patient demonstrating appropriate use. Knee-high DONNA hose and sequential compression devices in place to his bilateral lower extremities. GASTROINTESTINAL: Abdomen soft, nontender, nondistended. Active bowel sounds present 4 quadrants. Tolerating diet. Passing flatus. No guarding or rigidity. Bowel movement yesterday 01/14/2023. GENITOURINARY: Continues to void. 800 mL of urine output in the last 8 hours. INTEGUMENTARY: Skin is warm and dry with no evidence of clubbing or cyanosis. Midline sternal incision clean dry and well approximated, covered with dry intact dressing. NEUROLOGIC: Cranial nerves II through XII intact. No focal deficits. MUSKULOSKELETAL: Able to move all extremities, strength equal bilaterally. PSYCHIATRIC: Alert and oriented to person place and time, appropriate affect, intact judgment and insight. - Allied health notes Allied health notes reviewed: nursing - Labs CBC & Chem 7: 01/15/23 10:14 01/15/23 10:14 Labs: Abnormal Lab Results - Last 24 Hours (Table) 01/14/23 01/14/23 01/14/23 Range/Units 08:46 08:46 08:46 RBC 2.73 L (4.30-5.90) m/uL Hgb 8.1 L (13.0-17.5) gm/dL Hct 24.5 L (39.0-53.0) % Plt Count 105 L (150-450) k/uL INR 1.2 H (<1.2) Sodium 133 L (137-145) mmol/L BUN 22 H (9-20) mg/dL Glucose 222 H (74-99) mg/dL POC Glucose (mg/dL) (70-110) mg/dL Calcium 8.0 L (8.4-10.2) mg/dL Total Protein 5.5 L (6.3-8.2) g/dL Albumin 3.2 L (3.5-5.0) g/dL 01/14/23 01/14/23 01/14/23 Range/Units 12:06 16:08 20:16 RBC (4.30-5.90) m/uL Hgb (13.0-17.5) gm/dL Hct (39.0-53.0) % Plt Count (150-450) k/uL INR (<1.2) Sodium (137-145) mmol/L BUN (9-20) mg/dL Glucose (74-99) mg/dL POC Glucose (mg/dL) 219 H 223 H 189 H (70-110) mg/dL Calcium (8.4-10.2) mg/dL Total Protein (6.3-8.2) g/dL Albumin (3.5-5.0) g/dL 01/15/23 Range/Units 06:07 RBC (4.30-5.90) m/uL Hgb (13.0-17.5) gm/dL Hct (39.0-53.0) % Plt Count (150-450) k/uL INR (<1.2) Sodium (137-145) mmol/L BUN (9-20) mg/dL Glucose (74-99) mg/dL POC Glucose (mg/dL) 196 H (70-110) mg/dL Calcium (8.4-10.2) mg/dL Total Protein (6.3-8.2) g/dL Albumin (3.5-5.0) g/dL - Imaging and Cardiology Chest x-ray: report reviewed, image reviewed Assessment and Plan Assessment: Severe bicuspid aortic valve stenosis with preserved LV systolic function, status post aortic valve replacement using a 23 mm On-X mechanical prosthesis Diabetes mellitus type 2 Hypertension Hyperlipidemia Family history of coronary artery disease Daily marijuana use Lifetime nonsmoker Postoperative acute blood loss anemia, expected given hemodilution and c ardiopulmonary bypass Tiny right sided apical pneumothorax, expected, resolved Plan: Continue to maximize medical therapy with aspirin, statin and beta isabel. The patient's INR is 1.8 today, we will discontinue the Plavix and heparin subcu and will continue aspirin 325 mg by mouth daily and Protonix 40 mg by mouth daily. We will increase Metoprolol tartrate as tolerated. Currently taking metoprolol tartrate 75 mg by mouth twice a day. Continue amiodarone 400 mg by mouth twice a day for A. fib prophylaxis. Encourage incentive spirometry use 10 times every hour while awake. Bronchodilators per pulmonology. Increase activity as tolerated. PT/OT/cardiac rehab following. Will monitor daily labs and chest x-rays. Electrolyte replacement per protocol. Continue Ferrous sulfate/vitamin C. Insulin management per internal medicine. Hemoglobin A1c preoperative 7.0%, patient is a diabetic, keep tight blood sugar control to promote sternal wound healing. GI/DVT prophylaxis. Pain control with current medication regimen. Cntinue to record strict accurate intake and output. Daily weights. Shower daily. We will give Coumadin 5 mg by mouth today, goal INR for the first 3 months to be 2.0-3.0, and after the 3 months goal rate will be 1.5-2.0. We will check daily PT and INRs. INR today is 1.8. More recommendations to follow based on patient's clinical course. Time with Patient: Greater than 30
--- NOTE | 2023-01-15 11:23 | P.PN ---
Subjective Progress Note Date: 01/15/23 This 42-year-old male patient who presented for an elective aortic valve replacement DrNakita surgery 01/11/2023 due to severe bicuspid aortic valve stenosis with preserved left ventricular systolic function. Patient has past medical history of diabetes mellitus maintained on oral agents metformin and glipizide, hypertension, hyperlipidemia and marijuana use. Patient is currently postop day 1 resting comfortably in chair in intensive care unit. Patient maintained on Primacor and insulin drip. Chest tube and Cordis line in place. Plans to remove right IJ [place] per cardiovascular surgery, this time patient denies chest pain or shortness breath. Patient denies nausea vomiting or diarrhea. Patient denies any urinary burning or frequency. On 01/13/2023 patient was seen and examined in the ICU he is alert and oriented 3 in no apparent distress there is no fever or chills no headache or dizziness no chest pain no shortness of breath no cough no nausea or vomiting no abdominal pain no diarrhea no blood in the stools no burning with urination no frequency or urgency and no hematuria. At this time glucose is well-controlled at 154, will discontinue insulin drip and start with insulin sliding scale, medication and labs were reviewed will follow in a.m.. On 01/14/2023 patient was seen and examined on the telemetry floor he is out of ICU today, he is alert and oriented 3 and denies any complaints , there is no fever or chills no headache or dizziness, no chest pain no shortness of breath no cough no nausea or vomiting no abdominal pain no diarrhea no blood in the stools no burning with urination no frequency or urgency and no hematuria. On 01/15/2023 patient was seen and examined on the telemetry floor he is alert and oriented 3 in no apparent distress there is no fever or chills no headache or dizziness no chest pain no shortness of breath no cough no nausea or vomiting no abdominal pain no diarrhea and no urinary symptoms, his glucose is up to 180- 200 range, at this time will continue with insulin sliding scale and add Levemir 10 units at bedtime Objective - Vital Signs Vital signs: Vital Signs Temp 98.6 F 01/15/23 08:10 Pulse 85 01/15/23 08:35 Resp 19 01/15/23 08:10 BP 126/78 01/15/23 08:10 Pulse Ox 97 01/15/23 08:10 FiO2 21 01/14/23 08:13 Intake & Output 01/14/23 01/15/23 01/15/23 18:59 06:59 18:59 Intake Total 710 110 Output Total 800 Balance 710 -800 110 Weight 96.9 kg Intake: Oral 710 110 Output: Urine 800 Other: Voiding Method Toilet Toilet Toilet # Voids 9 300 # Bowel Movements 9 ABP, PAP, CO, CI - Last Documented Arterial Blood Pressure 106/52 Pulmonary Artery Pressure 26/14 Cardiac Output 5.3 Cardiac Index 2.6 - Exam In general patient is alert and oriented 3 in no apparent distress Head normocephalic and atraumatic Neck supple no JVD no goiter Lungs incision dressing clean dry and intact chest tube in place Heart regular rate and rhythm S1-S2, no rub or gallop Abdomen is soft nontender nondistended positive bowel sounds no hepatosplenomegaly Extremities no edema Neuro no gross focal deficit - Labs CBC & Chem 7: 01/15/23 10:14 01/15/23 10:14 Labs: Abnormal Lab Results - Last 24 Hours (Table) 01/14/23 01/14/23 01/14/23 Range/Units 12:06 16:08 20:16 RBC (4.30-5.90) m/uL Hgb (13.0-17.5) gm/dL Hct (39.0-53.0) % PT (9.0-12.0) sec INR (<1.2) POC Glucose (mg/dL) 219 H 223 H 189 H (70-110) mg/dL 01/15/23 01/15/23 01/15/23 Range/Units 06:07 10:14 10:14 RBC 2.83 L (4.30-5.90) m/uL Hgb 8.5 L (13.0-17.5) gm/dL Hct 25.8 L (39.0-53.0) % PT 18.0 H (9.0-12.0) sec INR 1.8 H (<1.2) POC Glucose (mg/dL) 196 H (70-110) mg/dL Assessment and Plan Assessment: 1. Severe bicuspid aortic valve stenosis status post aortic valve replacement on 01/11/[address] Joseph 2. Diabetes mellitus type 2 patient maintained on oral agents at home. Insulin drip ordered postoperatively 3. History of essential hypertension 4. History of hyperlipidemia 5. Family history of coronary artery disease 6. Daily marijuana use At this time patient maintained in the intensive care unit Chest tube in place Maintained on insulin drip Thank you for this consultation we'll continue to follow patient closely throughout stay
[2023-01-15 11:32] LABS: Glucose,Whole Blood 230 mg/dL (70-110)
[2023-01-15] MEDS: FERROUS SULFATE 325 MG TAB PO SCH (12:05)
[2023-01-15] MEDS: ASCORBIC ACID 500 MG TAB PO SCH (12:05)
[2023-01-15] MEDS: SIMETHICONE 80 MG CHEWABLE PO SCH ×3 (12:11→21:30)
--- NOTE | 2023-01-15 13:03 | P.PN ---
Subjective Progress Note Date: 01/15/23 Principal diagnosis: Status post aortic valve replacement postoperative day #4 this is a 42-year-old white male, primarily a patient of Dr. Segundo, patient was referred recently to cardiology, patient developed history of heart murmur for many years. However recently the patient has been complaining of weakness fatigue and some shortness of breath on exertion, underwent further cardiac workup, he was found to have severe aortic stenosis, left ventricular hypertrophy, no previous history no chest pain, but he had intermittent episodes of palpitations. Patient is known to have history of type 2 diabetes without complications, hypertension, dyslipidemia, and strong family history of coronary artery disease.recent cardiac catheterizationshowed severe bicuspid aortic valve stenosis and mild nonocclusive coronary artery disease. Hence the patient was referred for aortic valve replacement. This was done today by Dr. Joseph, patient is now in the ICU on mechanical ventilation, and this consult was initiatedpatient is maintained ont[place] volume of tidal volume of 500,assist control rate of 20, PEEP of 8 and FiO2 100%.ABG showed a pO2 of 351 pCO2 44 pH of 7.35, hence I cut down the FiO2 down to 40%.chest x-ray showed no evidence of active disease. Adequate placement of endotracheal tube, lines, and mediastinal chest tube. Patient is sedated, on propofol, he is also on milrinone, and he seems to be hemodynamically stable at this point. Reevaluated today on 01/12/2023, patient is now postoperative day #1, he is status post aortic valve replacement using a 23 mm mechanical prosthesis. Patient was extubated uneventfully a few hours after he arrived to the ICU. As a matter of fact he was extubated at 6:15 PM last evening. Today the patient is in no distress, he is on 2 L nasal cannula saturation 97%, denies any specific complaints. Not requiring any drips at this point except insulin drip for his elevated blood sugar. Hemodynamic showed cardiac output 5.4, pulmonary artery pressure 31/17 CVP of 11. Chest tubes were noted chest x-ray was noted, small tiny right apical pneumothorax is noted. Right-sided chest tube remains in place, no megaly Patient was reevaluated today on 01/13/2023, his postoperative day #2 chest x-ray continues to show small tiny right apical pneumothorax, there is no leak noted in the chest tube, clinically the patient is doing great, asymptomatic, remains on room air. Remains on insulin drip at 4.5 units per hour. Otherwise the patient is not requiring any drips. Chest x-ray minimal bibasilar atelectasis is noted and again apical right-sided pneumothorax very minimal WBC count is 11.6 hemoglobin is 9. Electrolytes and basic metabolic profile are normal Reevaluated today on 01/14/2023, patient is doing well, relatively asymptomatic his postoperative day #3 no major issues over the last 24 hours. Patient is do ing great, will likely be discharged home in the next 24 hours. Reevaluated today on 01/15/2023, patient is now postoperative day #4, doing great, relatively asymptomatic, hopefully the patient could be discharged home today or possibly the next 24 hours. No active pulmonary symptoms, his chest x-ray is reassuring, doing well with incentive spirometry, no major issues over the last 24 hours Objective - Vital Signs Vital signs: Vital Signs Temp 98.5 F 01/15/23 12:05 Pulse 79 01/15/23 12:05 Resp 18 01/15/23 12:05 BP 113/69 01/15/23 12:05 Pulse Ox 98 01/15/23 12:05 FiO2 21 01/14/23 08:13 Intake & Output 01/14/23 01/15/23 01/15/23 18:59 06:59 18:59 Intake Total 710 110 Output Total 800 Balance 710 -800 110 Weight 96.9 kg Intake: Oral 710 110 Output: Urine 800 Other: Voiding Method Toilet Toilet Toilet # Voids 9 300 # Bowel Movements 9 ABP, PAP, CO, CI - Last Documented Arterial Blood Pressure 106/52 Pulmonary Artery Pressure 26/14 Cardiac Output 5.3 Cardiac Index 2.6 - Exam Physical Exam: Revealed 42-year-old white male in no distress. On room air Head: Atraumatic, normocephalic. HEENT:[Neck is supple.] [No neck masses.] [No thyromegaly.] [No JVD.] Chest: [Clear throughout, no crackles, no rhonchi, no wheezes.] All chest tubes have been removed Cardiac Exam: [Normal S1 and S2, no S3 gallop, no murmur.] Abdomen: [Soft, nontender, no megaly, no rebound, no guarding, normal bowel sounds.] Extremities: [No clubbing, no edema, no cyanosis.] Neurological Exam: [No focal neurologic deficit.] Alert and oriented 3. Psychiatric: Normal mood affect and normal mental status. Skin: No rashes - Labs CBC & Chem 7: 01/15/23 10:14 01/15/23 10:14 Labs: Abnormal Lab Results - Last 24 Hours (Table) 01/14/23 01/14/23 01/15/23 Range/Units 16:08 20:16 06:07 RBC (4.30-5.90) m/uL Hgb (13.0-17.5) gm/dL Hct (39.0-53.0) % PT (9.0-12.0) sec INR (<1.2) Sodium (137-145) mmol/L Glucose (74-99) mg/dL POC Glucose (mg/dL) 223 H 189 H 196 H (70-110) mg/dL Calcium (8.4-10.2) mg/dL 01/15/23 01/15/23 01/15/23 Range/Units 10:14 10:14 10:14 RBC 2.83 L (4.30-5.90) m/uL Hgb 8.5 L (13.0-17.5) gm/dL Hct 25.8 L (39.0-53.0) % PT 18.0 H (9.0-12.0) sec INR 1.8 H (<1.2) Sodium 136 L (137-145) mmol/L Glucose 239 H (74-99) mg/dL POC Glucose (mg/dL) (70-110) mg/dL Calcium 8.2 L (8.4-10.2) mg/dL 01/15/23 Range/Units 11:30 RBC (4.30-5.90) m/uL Hgb (13.0-17.5) gm/dL Hct (39.0-53.0) % PT (9.0-12.0) sec INR (<1.2) Sodium (137-145) mmol/L Glucose (74-99) mg/dL POC Glucose (mg/dL) 230 H (70-110) mg/dL Calcium (8.4-10.2) mg/dL Assessment and Plan Assessment: impression: Severe bicuspid aortic valve stenosis with preserved LV systolic function, status post aortic valve replacement.using a 23 mm mechanical prosthesis. Postoperative day #4 Type 2 diabetes without complications Benign essential hypertension Dyslipidemia Family history of coronary artery disease Tobacco dependence syndrome Small tiny right apical pneumothorax, expected. Recommendation: Incentive spirometry Continue to ambulate Increase activity as tolerated GI and DVT prophylaxis Continue insulin and address sugars accordingly. Discharge when cleared by cardiac surgery. Will follow as needed Time with Patient: Less than 30
--- NOTE | 2023-01-15 16:28 | P.PN ---
Subjective Progress Note Date: 01/15/23 HISTORY OF PRESENTING ILLNESS Patient is a pleasant 42-year-old male with history of hypertension, diabetes mellitus, hyperlipidemia, marijuana use, family history of coronary artery disease, bicuspid aortic valve with severe aortic stenosis. He follows with Dr. Raygoza. Patient admitted for elective aortic valve replacement and had a 23 mm mechanical OnX valve placed with left atrial appendage closure on 01/11. He has had persistent sinus tachycardia to 100s 120 range however no atrial fibrillation. He is off of any pressors. Currently denies any chest pain or pressure other than with deep inspiration. Blood pressure stable. 01/14 Patient is seen today in follow-up. He states he is feeling rundown but otherwise shortness of breath is okay. He has a little appetite. Heart rate is in the 90s, blood pressure 112/69, pulse ox 95% on room air. INR 1.2. Patient states he is probably going home on Tuesday. 01/15 Patient seen and examined. He reports that he is feeling better today. He has been ambulatory in the hallway. Does report occasional shortness of breath and chest pain. Also has some stomach discomfort. But overall he has more energy. INR 1.8. PHYSICAL EXAMINATION Vital signs reviewed. CONSTITUTIONAL: No apparent distress. HEENT: Head is normocephalic. Pupils are equal, round. Sclerae anicteric. Mucous membranes of the mouth are moist. No JVD. No carotid bruit. CHEST EXAMINATION: Lungs are clear to auscultation. No chest wall tenderness is noted on palpation or with deep breathing. HEART EXAMINATION: Regular rate and rhythm. S1, S2 heard. No murmurs, gallops or rub. ABDOMEN: Soft, nontender. Positive bowel sounds. EXTREMITIES: 2+ peripheral pulses, no lower extremity edema and no calf tenderness. NEUROLOGIC EXAMINATION: Patient is awake, alert and oriented x3. ASSESSMENT 1. Severe aortic stenosis status post mechanical AVR with 23mm [place] 2. Hypertension 3. Hyperlipidemia 4. Diabetes mellitus type 2 5. Sinus tachycardia 6. Anemia, expected PLAN He is doing well. Continue with metoprolol. Continue current supportive care. Coumadin started with goal INR 2-3 for first 3 months then 1.5-2.0. Nurse practitioner note has been reviewed, I agree with the documented findings and plan of care. Patient was seen and examined. Objective - Vital Signs Vital signs: Vital Signs Temp 98.5 F 01/15/23 12:05 Pulse 78 01/15/23 15:46 Resp 18 01/15/23 12:05 BP 113/69 01/15/23 12:05 Pulse Ox 98 01/15/23 12:05 FiO2 21 01/14/23 08:13 Intake & Output 01/14/23 01/15/23 01/15/23 18:59 06:59 18:59 Intake Total 710 220 Output Total 800 Balance 710 -800 220 Weight 96.9 kg Intake: Oral 710 220 Output: Urine 800 Other: Voiding Method Toilet Toilet Toilet # Voids 9 300 # Bowel Movements 9 ABP, PAP, CO, CI - Last Documented Arterial Blood Pressure 106/52 Pulmonary Artery Pressure 26/14 Cardiac Output 5.3 Cardiac Index 2.6 - Labs CBC & Chem 7: 01/15/23 10:14 01/15/23 10:14 Labs: Abnormal Lab Results - Last 24 Hours (Table) 01/14/23 01/15/23 01/15/23 Range/Units 20:16 06:07 10:14 RBC (4.30-5.90) m/uL Hgb (13.0-17.5) gm/dL Hct (39.0-53.0) % PT 18.0 H (9.0-12.0) sec INR 1.8 H (<1.2) Sodium (137-145) mmol/L Glucose (74-99) mg/dL POC Glucose (mg/dL) 189 H 196 H (70-110) mg/dL Calcium (8.4-10.2) mg/dL 01/15/23 01/15/23 01/15/23 Range/Units 10:14 10:14 11:30 RBC 2.83 L (4.30-5.90) m/uL Hgb 8.5 L (13.0-17.5) gm/dL Hct 25.8 L (39.0-53.0) % PT (9.0-12.0) sec INR (<1.2) Sodium 136 L (137-145) mmol/L Glucose 239 H (74-99) mg/dL POC Glucose (mg/dL) 230 H (70-110) mg/dL Calcium 8.2 L (8.4-10.2) mg/dL
[2023-01-15 16:31] LABS: Glucose,Whole Blood 199 mg/dL (70-110)
[2023-01-15] MEDS ORDERED: WARFARIN 5 MG TAB PO ONE (18:00)
[2023-01-15 20:41] LABS: Glucose,Whole Blood 217 mg/dL (70-110)
[2023-01-15] MEDS: INSULIN DETEMIR (LEVEMIR) 100 UNIT/ML SYR SQ SCH (20:47)
[2023-01-15] MEDS: SENNOSIDES-DOCUSATE SODIUM 1 EACH TAB PO SCH (21:30)
[2023-01-16 06:13] LABS: Glucose,Whole Blood 162 mg/dL (70-110)
[2023-01-16] MEDS: PANTOPRAZOLE 40 MG TABLET PO SCH (06:38)
[2023-01-16] MEDS: INSULIN ASPART (NovoLOG) 100 UNIT/ML VIAL SQ SCH ×4 (06:38→20:11)
[2023-01-16] MEDS: AMIODARONE 200 MG TAB PO SCH ×2 (07:59→20:10)
[2023-01-16] MEDS: METOPROLOL TARTRATE 50 MG TAB PO SCH ×2 (07:59→20:10)
[2023-01-16] MEDS: ATORVASTATIN 40 MG TAB PO SCH (07:59)
[2023-01-16] MEDS: ASPIRIN 325 MG TAB PO SCH (07:59)
[2023-01-16] MEDS: SIMETHICONE 80 MG CHEWABLE PO SCH ×2 (08:00→11:35)
[2023-01-16 08:50] LABS: HCT 25.3 % (39.0-53.0); HGB 8.3 gm/dL (13.0-17.5); MCH 30.1 pg (25.0-35.0); MCV 91.2 fL (80.0-100.0); Mean Platelet Volume 8.5; Platelet Count 194 k/uL (150-450); RBC 2.77 m/uL (4.30-5.90); RDW 14.2 % (11.5-15.5); WBC 9.2 k/uL (3.8-10.6)
[2023-01-16 09:02] LABS: INR 2.8 (<1.2); Prothrombin Time 27.6 sec (9.0-12.0)
[2023-01-16 09:05] LABS: African American GFR (CKD) >90 (>60 ml/min/1.73 sqM); Anion Gap 9 mmol/L; Blood Urea Nitrogen 12 mg/dL (9-20); Calcium 8.3 mg/dL (8.4-10.2); Carbon Dioxide 25 mmol/L (22-30); Chloride 102 mmol/L (98-107); Glucose 222 mg/dL (74-99); Non-African American GFR(CKD) >90 (>60 ml/min/1.73 sqM); Potassium 4.5 mmol/L (3.5-5.1); Sodium 136 mmol/L (137-145)
[2023-01-16] MEDS: IPRATROPIUM-ALBUTEROL 3 ML NEB INHALATION SCH ×4 (09:15→20:40)
--- NOTE | 2023-01-16 09:45 | XR ---
EXAMINATION TYPE: XR chest 2V DATE OF EXAM: 01/16/2023 COMPARISON: 01/15/2023 HISTORY: 42-year-old male postoperative aVR TECHNIQUE: PA and lateral views FINDINGS: Median sternotomy wires are present with prosthetic aortic valve. Heart normal size. Small left great er than right pleural effusions bibasilar opacities persist without significant change. IMPRESSION: Ongoing small left greater the right pleural effusions with adjacent atelectasis and/or consolidation .
--- NOTE | 2023-01-16 10:19 | P.PN ---
Subjective Progress Note Date: 01/16/23 Principal diagnosis: Severe bicuspid aortic valve stenosis with preserved left ventricular systolic function. Past medical history significant for diabetes mellitus, hypertension, hyperlipidemia, is a lifetime nonsmoker, daily marijuana use and has a family history of coronary artery disease. POD #5 Aortic valve replacement using a 23 mm mechanical prosthesis, OnX valve with conform sewing ring, exclusion of the left atrial appendage using a 35 mm atriclip, intraoperative transesophageal echocardiogram and epi-aortic ultrasound. Postoperative acute blood loss anemia, expected given hemodilution and cardiopulmonary bypass Tiny right sided apical pneumothorax, expected, resolved The patient was seen and examined in follow-up today 01/16/2023 at his bedside on the cardiac stepdown unit. He is sitting up to the bedside chair, is awake, alert, orientated 3 and is in no acute apparent distress. Reports he feels much improved today, denies any further complaints of stomach bloating, denies any shortness of breath or pain at this time. He remains hemodynamically stable and is currently on no inotropic or pressor support. Yesterday his INR was 1.8 and was given 5 mg of Coumadin to help achieve a goal rate of INR 2.0-3.0. Oxygen saturations are 96% on room air and he is achieving 2000 L on his incentive spirometry with encouragement. Remote telemetry showing normal sinus rhythm heart rate 90 BPM. T-max temperature in the last 24 hours is 99.7F. Levemir 10 units at bedtime was added by primary care service yesterday for better control of his blood sugars. Chest x-ray was reviewed. The patient has been up ambulating in the cardiac stepdown unit hallway independently. No new concerns. Objective - Vital Signs Vital signs: Vital Signs Temp 99.1 F 01/16/23 03:27 Pulse 86 01/16/23 03:27 Resp 18 01/16/23 03:27 BP 123/80 01/16/23 03:27 Pulse Ox 96 01/16/23 03:27 FiO2 21 01/14/23 08:13 Intake & Output 01/15/23 01/16/23 01/16/23 18:59 06:59 18:59 Intake Total 330 Output Total 600 Balance 330 -600 Weight 95.8 kg Intake: Oral 330 Output: Urine 600 Other: Voiding Method Toilet Toilet # Voids 5 2 ABP, PAP, CO, CI - Last Documented Arterial Blood Pressure 106/52 Pulmonary Artery Pressure 26/14 Cardiac Output 5.3 Cardiac Index 2.6 - Exam CONSTITUTIONAL: Sitting up to the bedside chair on the cardiac stepdown unit, appears comfortable, cooperative, no apparent acute distress. HEENT: Neck is supple, no JVD, no lymphadenopathy. RESPIRATORY: Lungs sounds essentially clear throughout, diminished to his bilateral bases. Respirations are symmetrical and nonlabored. Currently on room air with oxygen saturations 96%. Able to achieve 2000 mL on his incentive spirometry. Strong cough. CARDIOVASCULAR: Regular rhythm and rate. S1 and S2 present, negative for S3, gallop or murmur, positive valvular click. Sternum is stable. Palpable peripheral pulses bilaterally, no edema to his bilateral lower extremities. No calf pain or tenderness noted. Heart hugger in place with patient demonstrating appropriate use. Knee-high DONNA hose and sequential compression devices in place to his bilateral lower extremities. GASTROINTESTINAL: Abdomen soft, nontender, nondistended. Active bowel sounds present 4 quadrants. Tolerating diet. Passing flatus. No guarding or rigidity. Bowel movement this morning. GENITOURINARY: Continues to void. 600 mL of urine output in the last 8 hours. INTEGUMENTARY: Skin is warm and dry with no evidence of clubbing or cyanosis. Midline sternal incision clean dry and well approximated, covered with dry intact dressing. NEUROLOGIC: Cranial nerves II through XII intact. No focal deficits. MUSKULOSKELETAL: Able to move all extremities, strength equal bilaterally. PSYCHIATRIC: Alert and oriented to person place and time, appropriate affect, intact judgment and insight. - Allied health notes Allied health notes reviewed: nursing - Labs CBC & Chem 7: 01/16/23 08:25 01/16/23 08:25 Labs: Abnormal Lab Results - Last 24 Hours (Table) 01/15/23 01/15/23 01/15/23 Range/Units 10:14 10:14 10:14 RBC 2.83 L (4.30-5.90) m/uL Hgb 8.5 L (13.0-17.5) gm/dL Hct 25.8 L (39.0-53.0) % PT 18.0 H (9.0-12.0) sec INR 1.8 H (<1.2) Sodium 136 L (137-145) mmol/L Glucose 239 H (74-99) mg/dL POC Glucose (mg/dL) (70-110) mg/dL Calcium 8.2 L (8.4-10.2) mg/dL 01/15/23 01/15/23 01/15/23 Range/Units 11:30 16:27 20:39 RBC (4.30-5.90) m/uL Hgb (13.0-17.5) gm/dL Hct (39.0-53.0) % PT (9.0-12.0) sec INR (<1.2) Sodium (137-145) mmol/L Glucose (74-99) mg/dL POC Glucose (mg/dL) 230 H 199 H 217 H (70-110) mg/dL Calcium (8.4-10.2) mg/dL 01/16/23 Range/Units 06:10 RBC (4.30-5.90) m/uL Hgb (13.0-17.5) gm/dL Hct (39.0-53.0) % PT (9.0-12.0) sec INR (<1.2) Sodium (137-145) mmol/L Glucose (74-99) mg/dL POC Glucose (mg/dL) 162 H (70-110) mg/dL Calcium (8.4-10.2) mg/dL - Imaging and Cardiology Chest x-ray: report reviewed, image reviewed Assessment and Plan Assessment: Severe bicuspid aortic valve stenosis with preserved LV systolic function, status post aortic valve replacement using a 23 mm On-X mechanical prosthesis Diabetes mellitus type 2 Hypertension Hyperlipidemia Family history of coronary artery disease Daily marijuana use Lifetime nonsmoker Postoperative acute blood loss anemia, expected given hemodilution and cardiopulmonary bypass Tiny right sided apical pneumothorax, expected, resolved Plan: Continue to maximize medical therapy with aspirin, statin and beta isabel. The patient's INR is 2.8 today, Plavix and heparin subcu were discontinued y esterday. Continue aspirin 325 mg by mouth daily and Protonix 40 mg by mouth daily. We will increase Metoprolol tartrate 100 mg by mouth twice a day. Continue amiodarone 400 mg by mouth twice a day for A. fib prophylaxis. Encourage incentive spirometry use 10 times every hour while awake. [facility] hodilators per pulmonology. Increase activity as tolerated. PT/OT/cardiac rehab following. Will monitor daily labs and chest x-rays. Electrolyte replacement per protocol. Continue Ferrous sulfate/vitamin C. Insulin management per internal medicine. Hemoglobin A1c preoperative 7.0%, patient is a diabetic, keep tight blood sugar control to promote sternal wound healing. Levemir 10 units subcu at bedtime was added by primary care. GI/DVT prophylaxis. Pain control with current medication regimen. Cntinue to record strict accurate intake and output. Daily weights. Shower daily. We will give Coumadin 2 mg by mouth today, goal INR for the first 3 months to be 2.0-3.0, and after the 3 months goal rate will be 1.5-2.0. We will check daily PT and INRs. INR today is 2.8. More recommendations to follow based on patient's clinical course. Time with Patient: Greater than 30
--- NOTE | 2023-01-16 10:49 | P.PN ---
Subjective Progress Note Date: 01/16/23 This 42-year-old male patient who presented for an elective aortic valve replacement DrNakita surgery 01/11/2023 due to severe bicuspid aortic valve stenosis with preserved left ventricular systolic function. Patient has past medical history of diabetes mellitus maintained on oral agents metformin and glipizide, hypertension, hyperlipidemia and marijuana use. Patient is currently postop day 1 resting comfortably in chair in intensive care unit. Patient maintained on Primacor and insulin drip. Chest tube and Cordis line in place. Plans to remove right IJ [place] per cardiovascular surgery, this time patient denies chest pain or shortness breath. Patient denies nausea vomiting or diarrhea. Patient denies any urinary burning or frequency. On 01/13/2023 patient was seen and examined in the ICU he is alert and oriented 3 in no apparent distress there is no fever or chills no headache or dizziness no chest pain no shortness of breath no cough no nausea or vomiting no abdominal pain no diarrhea no blood in the stools no burning with urination no frequency or urgency and no hematuria. At this time glucose is well-controlled at 154, will discontinue insulin drip and start with insulin sliding scale, medication and labs were reviewed will follow in a.m.. On 01/14/2023 patient was seen and examined on the telemetry floor he is out of ICU today, he is alert and oriented 3 and denies any complaints , there is no fever or chills no headache or dizziness, no chest pain no shortness of breath no cough no nausea or vomiting no abdominal pain no diarrhea no blood in the stools no burning with urination no frequency or urgency and no hematuria. On 01/15/2023 patient was seen and examined on the telemetry floor he is alert and oriented 3 in no apparent distress there is no fever or chills no headache or dizziness no chest pain no shortness of breath no cough no nausea or vomiting no abdominal pain no diarrhea and no urinary symptoms, his glucose is up to 180- 200 range, at this time will continue with insulin sliding scale and add Levemir 10 units at bedtime On 01/16/2023 patient was seen and examined on the telemetry floor he is alert and oriented in no apparent distress, he is feeling well and denies any symptoms at this time there is no fever or chills no headache or dizziness no chest pain no shortness of breath no cough no nausea or vomiting no abdominal pain no diarrhea and no urinary symptoms, at this time glucose is better controlled patient is maintained on insulin sliding scale and Levemir 10 units at bedtime Objective - Vital Signs Vital signs: Vital Signs Temp 98.9 F 01/16/23 08:00 Pulse 78 01/16/23 09:25 Resp 18 01/16/23 08:00 BP 131/74 01/16/23 08:00 Pulse Ox 96 01/16/23 09:15 FiO2 21 01/14/23 08:13 Intake & Output 01/15/23 01/16/23 01/16/23 18:59 06:59 18:59 Intake Total 330 110 Output Total 600 Balance 330 -600 110 Weight 95.8 kg Intake: Oral 330 110 Output: Urine 600 Other: Voiding Method Toilet Toilet Toilet # Voids 5 2 ABP, PAP, CO, CI - Last Documented Arterial Blood Pressure 106/52 Pulmonary Artery Pressure 26/14 Cardiac Output 5.3 Cardiac Index 2.6 - Exam In general patient is alert and oriented 3 in no apparent distress Head normocephalic and atraumatic Neck supple no JVD no goiter Lungs incision dressing clean dry and intact chest tube in place Heart regular rate and rhythm S1-S2, no rub or gallop Abdomen is soft nontender nondistended positive bowel sounds no hepatosplenomegaly Extremities no edema Neuro no gross focal deficit - Labs CBC & Chem 7: 01/16/23 08:25 01/16/23 08:25 Labs: Abnormal Lab Results - Last 24 Hours (Table) 01/15/23 01/15/23 01/15/23 Range/Units 10:14 10:14 10:14 RBC 2.83 L (4.30-5.90) m/uL Hgb 8.5 L (13.0-17.5) gm/dL Hct 25.8 L (39.0-53.0) % PT 18.0 H (9.0-12.0) sec INR 1.8 H (<1.2) Sodium 136 L (137-145) mmol/L Glucose 239 H (74-99) mg/dL POC Glucose (mg/dL) (70-110) mg/dL Calcium 8.2 L (8.4-10.2) mg/dL 01/15/23 01/15/23 01/15/23 Range/Units 11: 16:27 20:39 RBC (4.30-5.90) m/uL Hgb (13.0-17.5) gm/dL Hct (39.0-53.0) % PT (9.0-12.0) sec INR (<1.2) Sodium (137-145) mmol/L Glucose (74-99) mg/dL POC Glucose (mg/dL) 230 H 199 H 217 H (70-110) mg/dL Calcium (8.4-10.2) mg/dL 01/16/23 01/16/23 01/16/23 Range/Units : 08:25 08:25 RBC 2.77 L (4.30-5.90) m/uL Hgb 8.3 L (13.0-17.5) gm/dL Hct 25.3 L (39.0-53.0) % PT 27.6 H (9.0-12.0) sec INR 2.8 H (<1.2) Sodium (137-145) mmol/L Glucose (74-99) mg/dL POC Glucose (mg/dL) 162 H (70-110) mg/dL Calcium (8.4-10.2) mg/dL 01/16/23 Range/Units 08:25 RBC (4.30-5.90) m/uL Hgb (13.0-17.5) gm/dL Hct (39.0-53.0) % PT (9.0-12.0) sec INR (<1.2) Sodium 136 L (137-145) mmol/L Glucose 222 H (74-99) mg/dL POC Glucose (mg/dL) (70-110) mg/dL Calcium 8.3 L (8.4-10.2) mg/dL Assessment and Plan Assessment: 1. Severe bicuspid aortic valve stenosis status post aortic valve replacement on 01/11/[address] Joseph 2. Diabetes mellitus type 2 patient maintained on oral agents at home. Insulin drip ordered postoperatively 3. History of essential hypertension 4. History of hyperlipidemia 5. Family history of coronary artery disease 6. Daily marijuana use At this time patient maintained in the intensive care unit Chest tube in place Maintained on insulin drip Thank you for this consultation we'll continue to follow patient closely throughout stay
[2023-01-16 11:25] LABS: Glucose,Whole Blood 208 mg/dL (70-110)
[2023-01-16] MEDS: ASCORBIC ACID 500 MG TAB PO SCH (11:34)
[2023-01-16] MEDS: FERROUS SULFATE 325 MG TAB PO SCH (11:34)
--- NOTE | 2023-01-16 12:33 | P.PN ---
Subjective Progress Note Date: 01/16/23 HISTORY OF PRESENTING ILLNESS Patient is a pleasant 42-year-old male with history of hypertension, diabetes mellitus, hyperlipidemia, marijuana use, family history of coronary artery disease, bicuspid aortic valve with severe aortic stenosis. He follows with Dr. Raygoza. Patient admitted for elective aortic valve replacement and had a 23 mm mechanical OnX valve placed with left atrial appendage closure on 01/11. He has had persistent sinus tachycardia to 100s 120 range however no atrial fibrillation. He is off of any pressors. Currently denies any chest pain or pressure other than with deep inspiration. Blood pressure stable. 01/14 Patient is seen today in follow-up. He states he is feeling rundown but otherwise shortness of breath is okay. He has a little appetite. Heart rate is in the 90s, blood pressure 112/69, pulse ox 95% on room air. INR 1.2. Patient states he is probably going home on Tuesday. 01/15 Patient seen and examined. He reports that he is feeling better today. He has been ambulatory in the hallway. Does report occasional shortness of breath and chest pain. Also has some stomach discomfort. But overall he has more energy. INR 1.8. 01/16 Patient sitting up in bedside chair. Denies any chest pain or shortness of breath. Reports that his stomach discomfort is better today. Hemoglobin 8.3, INR 2.8. PHYSICAL EXAMINATION Vital signs reviewed. CONSTITUTIONAL: No apparent distress. HEENT: Head is normocephalic. Pupils are equal, round. Sclerae anicteric. Mucous membranes of the mouth are moist. No JVD. No carotid bruit. CHEST EXAMINATION: Lungs are clear to auscultation. No chest wall tenderness is noted on palpation or with deep breathing. HEART EXAMINATION: Regular rate and rhythm. S1, S2 heard. No murmurs, gallops or rub. ABDOMEN: Soft, nontender. Positive bowel sounds. EXTREMITIES: 2+ peripheral pulses, no lower extremity edema and no calf tender ness. NEUROLOGIC EXAMINATION: Patient is awake, alert and oriented x3. ASSESSMENT 1. Severe aortic stenosis status post mechanical AVR with 23mm [place] 2. Hypertension 3. Hyperlipidemia 4. Diabetes mellitus type 2 5. Sinus tachycardia 6. Anemia, expected PLAN Continue with current regimen. On Coumadin with goal INR 2-3 for first 3 months then 1.5-2.0. Anticipate discharge home tomorrow. Nurse practitioner note has been reviewed, I agree with the documented findings and plan of care. Patient was seen and examined. Objective - Vital Signs Vital signs: Vital Signs Temp 98.9 F 01/16/23 08:00 Pulse 78 01/16/23 09:25 Resp 18 01/16/23 08:00 BP 131/74 01/16/23 08:00 Pulse Ox 96 01/16/23 09:15 FiO2 21 01/14/23 08:13 Intake & Output 01/15/23 01/16/23 01/16/23 18:59 06:59 18:59 Intake Total 330 110 Output Total 600 Balance 330 -600 110 Weight 95.8 kg Intake: Oral 330 110 Output: Urine 600 Other: Voiding Method Toilet Toilet Toilet # Voids 5 2 ABP, PAP, CO, CI - Last Documented Arterial Blood Pressure 106/52 Pulmonary Artery Pressure 26/14 Cardiac Output 5.3 Cardiac Index 2.6 - Labs CBC & Chem 7: 01/16/23 08:25 01/16/23 08:25 Labs: Abnormal Lab Results - Last 24 Hours (Table) 01/15/23 01/15/23 01/15/23 Range/Units 11:30 16:27 20:39 RBC (4.30-5.90) m/uL Hgb (13.0-17.5) gm/dL Hct (39.0-53.0) % PT (9.0-12.0) sec INR (<1.2) Sodium (137-145) mmol/L Glucose (74-99) mg/dL POC Glucose (mg/dL) 230 H 199 H 217 H (70-110) mg/dL Calcium (8.4-10.2) mg/dL 01/16/23 01/16/23 01/16/23 Range/Units 06:10 08:25 08:25 RBC 2.77 L (4.30-5.90) m/uL Hgb 8.3 L (13.0-17.5) gm/dL Hct 25.3 L (39.0-53.0) % PT 27.6 H (9.0-12.0) sec INR 2.8 H (<1.2) Sodium (137-145) mmol/L Glucose (74-99) mg/dL POC Glucose (mg/dL) 162 H (70-110) mg/dL Calcium (8.4-10.2) mg/dL 01/16/23 Range/Units 08:25 RBC (4.30-5.90) m/uL Hgb (13.0-17.5) gm/dL Hct (39.0-53.0) % PT (9.0-12.0) sec INR (<1.2) Sodium 136 L (137-145) mmol/L Glucose 222 H (74-99) mg/dL POC Glucose (mg/dL) (70-110) mg/dL Calcium 8.3 L (8.4-10.2) mg/dL
[2023-01-16 16:25] LABS: Glucose,Whole Blood 238 mg/dL (70-110)
[2023-01-16] MEDS ORDERED: WARFARIN 2 MG TAB PO ONE (18:00)
[2023-01-16 20:10] LABS: Glucose,Whole Blood 285 mg/dL (70-110)
[2023-01-16] MEDS: INSULIN DETEMIR (LEVEMIR) 100 UNIT/ML SYR SQ SCH (20:10)
[2023-01-16] MEDS: SENNOSIDES-DOCUSATE SODIUM 1 EACH TAB PO SCH (20:12)
[2023-01-17 06:22] LABS: Glucose,Whole Blood 140 mg/dL (70-110)
[2023-01-17] MEDS: INSULIN ASPART (NovoLOG) 100 UNIT/ML VIAL SQ SCH ×2 (06:25→12:34)
[2023-01-17] MEDS: PANTOPRAZOLE 40 MG TABLET PO SCH (06:28)
--- NOTE | 2023-01-17 07:41 | XR ---
EXAMINATION TYPE: XR chest 2V DATE OF EXAM: 01/17/2023 COMPARISON: 63 TECHNIQUE: PA and lateral views submitted. HISTORY: Posterior FINDINGS: Median sternotomy wires are present with prosthetic aortic valve. Heart normal size. Small left great er than right pleural effusions bibasilar opacities persist without significant change. IMPRESSION: 1. Bilateral consolidation and pleural effusions are stable. No overt failure..
[2023-01-17] MEDS: ASPIRIN 325 MG TAB PO SCH (08:07)
[2023-01-17] MEDS: METOPROLOL TARTRATE 50 MG TAB PO SCH (08:07)
[2023-01-17] MEDS: AMIODARONE 200 MG TAB PO SCH (08:07)
[2023-01-17] MEDS: ATORVASTATIN 40 MG TAB PO SCH (08:07)
[2023-01-17 08:44] LABS: Basophils % (A) 0 %; Eosinophils # (A) 0.2 k/uL (0-0.7); Eosinophils % (A) 2 %; HCT 27.3 % (39.0-53.0); HGB 8.7 gm/dL (13.0-17.5); Hypochromasia Slight; Lymphocytes # (A) 1.1 k/uL (1.0-4.8); Lymphocytes % (A) 12 %; MCH 29.4 pg (25.0-35.0); MCV 91.9 fL (80.0-100.0); Mean Platelet Volume 8.3; Monocytes # (A) 0.6 k/uL (0-1.0); Monocytes % (A) 7 %; Neutrophils % (A) 76 %; Platelet Count 246 k/uL (150-450); RBC 2.97 m/uL (4.30-5.90); RDW 14.4 % (11.5-15.5); WBC 9.2 k/uL (3.8-10.6)
[2023-01-17 08:50] LABS: INR 2.8 (<1.2); Prothrombin Time 26.9 sec (9.0-12.0)
[2023-01-17] MEDS: IPRATROPIUM-ALBUTEROL 3 ML NEB INHALATION SCH ×2 (09:12→13:08)
[2023-01-17] MEDS ORDERED: FUROSEMIDE 10 MG/ML 2 ML VIAL IV STA (09:13)
[2023-01-17 09:34] LABS: ALT 33 U/L (4-49); AST 26 U/L (17-59); African American GFR (CKD) >90 (>60 ml/min/1.73 sqM); Albumin 3.5 g/dL (3.5-5.0); Alkaline Phosphatase 59 U/L (38-126); Anion Gap 9 mmol/L; Blood Urea Nitrogen 10 mg/dL (9-20); Calcium 8.1 mg/dL (8.4-10.2); Carbon Dioxide 25 mmol/L (22-30); Chloride 102 mmol/L (98-107); Glucose 235 mg/dL (74-99); Non-African American GFR(CKD) >90 (>60 ml/min/1.73 sqM); Potassium 4.4 mmol/L (3.5-5.1); Sodium 136 mmol/L (137-145); Total Bilirubin 0.8 mg/dL (0.2-1.3); Total Protein 6.1 g/dL (6.3-8.2)
--- NOTE | 2023-01-17 10:28 | P.PN ---
Subjective Progress Note Date: 01/17/23 This 42-year-old male patient who presented for an elective aortic valve replacement DrNakita surgery 01/11/2023 due to severe bicuspid aortic valve stenosis with preserved left ventricular systolic function. Patient has past medical history of diabetes mellitus maintained on oral agents metformin and glipizide, hypertension, hyperlipidemia and marijuana use. Patient is currently postop day 1 resting comfortably in chair in intensive care unit. Patient maintained on Primacor and insulin drip. Chest tube and Cordis line in place. Plans to remove right IJ Papillion per cardiovascular surgery, this time patient denies chest pain or shortness breath. Patient denies nausea vomiting or diarrhea. Patient denies any urinary burning or frequency. On 01/13/2023 patient was seen and examined in the ICU he is alert and oriented 3 in no apparent distress there is no fever or chills no headache or dizziness no chest pain no shortness of breath no cough no nausea or vomiting no abdominal pain no diarrhea no blood in the stools no burning with urination no frequency or urgency and no hematuria. At this time glucose is well-controlled at 154, will discontinue insulin drip and start with insulin sliding scale, medication and labs were reviewed will follow in a.m.. On 01/14/2023 patient was seen and examined on the telemetry floor he is out of ICU today, he is alert and oriented 3 and denies any complaints , there is no fever or chills no headache or dizziness, no chest pain no shortness of breath no cough no nausea or vomiting no abdominal pain no diarrhea no blood in the stools no burning with urination no frequency or urgency and no hematuria. On 01/15/2023 patient was seen and examined on the telemetry floor he is alert and oriented 3 in no apparent distress there is no fever or chills no headache or dizziness no chest pain no shortness of breath no cough no nausea or vomiting no abdominal pain no diarrhea and no urinary symptoms, his glucose is up to 180- 200 range, at this time will continue with insulin sliding scale and add Levemir 10 units at bedtime On 01/16/2023 patient was seen and examined on the telemetry floor he is alert and oriented in no apparent distress, he is feeling well and denies any symptoms at this time there is no fever or chills no headache or dizziness no chest pain no shortness of breath no cough no nausea or vomiting no abdominal pain no diarrhea and no urinary symptoms, at this time glucose is better controlled patient is maintained on insulin sliding scale and Levemir 10 units at bedtime On 01/17/2023 patient is alert and oriented 3 currently sitting comfortably in chair. Anticipate possible discharge home today per cardiothoracic surgery. Patient will resume home diabetes medication and follow up with PCP. This time patient denies chest pain or shortness breath. Patient nausea vomiting or diarrhea. Patient denies any urinary burning or frequency Objective - Vital Signs Vital signs: Vital Signs Temp 99.1 F 01/17/23 08:07 Pulse 95 01/17/23 08:07 Resp 18 01/17/23 08:07 BP 113/74 01/17/23 08:07 Pulse Ox 97 01/17/23 08:07 FiO2 21 01/14/23 08:13 Intake & Output 01/16/23 01/17/23 01/17/23 18:59 06:59 18:59 Intake Total 330 10 10 Balance 330 10 10 Weight 95 kg Intake: IV 10 10 0.9 10 Invasive Line 5 10 Oral 330 Other: Voiding Method Toilet Toilet Toilet # Voids 4 1 ABP, PAP, CO, CI - Last Documented Arterial Blood Pressure 106/52 Pulmonary Artery Pressure 26/14 Cardiac Output 5.3 Cardiac Index 2.6 - Exam In general patient is alert and oriented 3 in no apparent distress Head normocephalic and atraumatic Neck supple no JVD no goiter Lungs incision dressing clean dry and intact chest tube in place Heart regular rate and rhythm S1-S2, no rub or gallop Abdomen is soft nontender nondistended positive bowel sounds no hepatosplenomegaly Extremities no edema Neuro no gross focal deficit - Labs CBC & Chem 7: 01/17/23 08:16 01/17/23 08:16 Labs: Abnormal Lab Results - Last 24 Hours (Table) 01/16/23 01/16/23 01/16/23 Range/Units 11: 16:24 20:08 RBC (4.30-5.90) m/uL Hgb (13.0-17.5) gm/dL Hct (39.0-53.0) % PT (9.0-12.0) sec INR (<1.2) Sodium (137-145) mmol/L Glucose (74-99) mg/dL POC Glucose (mg/dL) 208 H 238 H 285 H (70-110) mg/dL Calcium (8.4-10.2) mg/dL Total Protein (6.3-8.2) g/dL 01/17/23 01/17/23 01/17/23 Range/Units 06:21 08:16 08:16 RBC 2.97 L (4.30-5.90) m/uL Hgb 8.7 L (13.0-17.5) gm/dL Hct 27.3 L (39.0-53.0) % PT (9.0-12.0) sec INR (<1.2) Sodium 136 L (137-145) mmol/L Glucose 235 H (74-99) mg/dL POC Glucose (mg/dL) 140 H (70-110) mg/dL Calcium 8.1 L (8.4-10.2) mg/dL Total Protein 6.1 L (6.3-8.2) g/dL 01/17/23 Range/Units 08:16 RBC (4.30-5.90) m/uL Hgb (13.0-17.5) gm/dL Hct (39.0-53.0) % PT 26.9 H (9.0-12.0) sec INR 2.8 H (<1.2) Sodium (137-145) mmol/L Glucose (74-99) mg/dL POC Glucose (mg/dL) (70-110) mg/dL Calcium (8.4-10.2) mg/dL Total Protein (6.3-8.2) g/dL Assessment and Plan Assessment: 1. Severe bicuspid aortic valve stenosis status post aortic valve replacement on 01/11/[address] Joseph 2. Diabetes mellitus type 2 patient maintained on oral agents at home. Insulin drip ordered postoperatively 3. History of essential hypertension 4. History of hyperlipidemia 5. Family history of coronary artery disease 6. Daily marijuana use Currently on selective care unit Maintained on sliding scale coverage plus Levemir 10 units Anticipate possible discharge home today Thank you for this consultation we'll continue to follow patient closely throughout stay
[2023-01-17 11:36] LABS: Glucose,Whole Blood 224 mg/dL (70-110)
[2023-01-17] MEDS: FERROUS SULFATE 325 MG TAB PO SCH (12:34)
[2023-01-17] MEDS: ASCORBIC ACID 500 MG TAB PO SCH (12:34)
--- NOTE | 2023-01-17 12:53 | P.PN ---
Subjective Progress Note Date: 01/17/23 Principal diagnosis: Severe bicuspid aortic valve stenosis with preserved left ventricular systolic function. Past medical history significant for diabetes mellitus, hypertension, hyperlipidemia, is a lifetime nonsmoker, daily marijuana use and has a family history of coronary artery disease. POD #6 Aortic valve replacement using a 23 mm mechanical prosthesis, OnX valve with conform sewing ring, exclusion of the left atrial appendage using a 35 mm atriclip, intraoperative transesophageal echocardiogram and epi-aortic ultrasound. Postoperative acute blood loss anemia, expected given hemodilution and cardiopulmonary bypass Tiny right sided apical pneumothorax, expected, resolved The patient was seen and examined in follow-up today 01/17/2023 at his bedside on the cardiac stepdown unit. He is sitting up to the bedside chair, is awake, alert, orientated 3 and is in no acute apparent distress. Denies any complaints of pain or shortness of breath at this time, also denies any further complaints of bloating or abdominal cramping. Oxygen saturations are 97% on r oom air and he is achieving 20-50 mL on his incentive spirometry with encouragement. He reports he has been up ambulating independently in the cardiac stepdown unit hallway and tolerating well. Remote telemetry showing normal sinus rhythm heart rate 85 BPM. His T-max temperature in the last 24 ho urs is 99.8F. CBGs have been running 140-285 mg/dL in the last 24 hours, primary care has adjusted his diabetic medication and was started on Levemir 10 units daily at bedtime. Laboratory and chest x-ray results reviewed. INR yesterday was 2.8 and he was given 2 mg of Coumadin by mouth 1. We are continuing to monitor daily PT and INRs. No new concerns. Objective - Vital Signs Vital signs: Vital Signs Temp 99.1 F 01/17/23 08:07 Pulse 95 01/17/23 08:07 Resp 18 01/17/23 08:07 BP 113/74 01/17/23 08:07 Pulse Ox 97 01/17/23 08:07 FiO2 21 01/14/23 08:13 Intake & Output 01/16/23 01/17/23 01/17/23 18:59 06:59 18:59 Intake Total 330 10 Balance 330 10 Weight 95 kg Intake: IV 10 0.9 10 Oral 330 Other: Voiding Method Toilet Toilet # Voids 4 1 ABP, PAP, CO, CI - Last Documented Arterial Blood Pressure 106/52 Pulmonary Artery Pressure 26/14 Cardiac Output 5.3 Cardiac Index 2.6 - Exam CONSTITUTIONAL: Sitting up to the bedside chair on the cardiac stepdown unit, appears comfortable, cooperative, no apparent acute distress. HEENT: Neck is supple, no JVD, no lymphadenopathy. RESPIRATORY: Lungs sounds essentially clear throughout, diminished to his bilateral bases. Respirations are symmetrical and nonlabored. Currently on room air with oxygen saturations 97%. Able to achieve 2250 mL on his incentive spirometry. Strong cough. CARDIOVASCULAR: Regular rhythm and rate. S1 and S2 present, negative for S3, gallop or murmur, positive valvular click. Sternum is stable. Palpable peripheral pulses bilaterally, no edema to his bilateral lower extremities. No calf pain or tenderness noted. Heart hugger in place with patient demonstrating appropriate use. Knee-high DONNA hose and sequential compression devices in place to his bilateral lower extremities. GASTROINTESTINAL: Abdomen soft, nontender, nondistended. Active bowel sounds present 4 quadrants. Tolerating diet. Passing flatus. No guarding or rigidity. Bowel movement this morning 01/17/2023. GENITOURINARY: Continues to void. INTEGUMENTARY: Skin is warm and dry with no evidence of clubbing or cyanosis. Midline sternal incision clean dry and well approximated, covered with dry intact dressing. NEUROLOGIC: Cranial nerves II through XII intact. No focal deficits. MUSKULOSKELETAL: Able to move all extremities, strength equal bilaterally. PSYCHIATRIC: Alert and oriented to person place and time, appropriate affect, intact judgment and insight. - Allied health notes Allied health notes reviewed: nursing - Labs CBC & Chem 7: 01/17/23 08:16 01/17/23 08:16 Labs: Abnormal Lab Results - Last 24 Hours (Table) 01/16/23 01/16/23 01/16/23 Range/Units 08:25 11:23 16:24 RBC (4.30-5.90) m/uL Hgb (13.0-17.5) gm/dL Hct (39.0-53.0) % PT (9.0-12.0) sec INR (<1.2) Sodium 136 L (137-145) mmol/L Glucose 222 H (74-99) mg/dL POC Glucose (mg/dL) 208 H 238 H (70-110) mg/dL Calcium 8.3 L (8.4-10.2) mg/dL 01/16/23 01/17/23 01/17/23 Range/Units 20:08 06:21 08:16 RBC 2.97 L (4.30-5.90) m/uL Hgb 8.7 L (13.0-17.5) gm/dL Hct 27.3 L (39.0-53.0) % PT (9.0-12.0) sec INR (<1.2) Sodium (137-145) mmol/L Glucose (74-99) mg/dL POC Glucose (mg/dL) 285 H 140 H (70-110) mg/dL Calcium (8.4-10.2) mg/dL 01/17/23 Range/Units 08:16 RBC (4.30-5.90) m/uL Hgb (13.0-17.5) gm/dL Hct (39.0-53.0) % PT 26.9 H (9.0-12.0) sec INR 2.8 H (<1.2) Sodium (137-145) mmol/L Glucose (74-99) mg/dL POC Glucose (mg/dL) (70-110) mg/dL Calcium (8.4-10.2) mg/dL - Imaging and Cardiology Chest x-ray: report reviewed, image reviewed Assessment and Plan Assessment: Severe bicuspid aortic valve stenosis with preserved LV systolic function, status post aortic valve replacement using a 23 mm On-X mechanical prosthesis Diabetes mellitus type 2 Hypertension Hyperlipidemia Family history of coronary artery disease Daily marijuana use Lifetime nonsmoker Postoperative acute blood loss anemia, expected given hemodilution and cardiopulmonary bypass Tiny right sided apical pneumothorax, expected, resolved Plan: Continue to maximize medical therapy with aspirin, statin and beta isabel. We will increase his beta isabel as tolerated. Continue aspirin 325 mg by mouth daily and Protonix 40 mg by mouth daily. Continue amiodarone 400 mg by mouth twice a day for A. fib prophylaxis. Encourage incentive spirometry use 10 times every hour while awake. Bronchodilators per pulmonology. Increase activity as tolerated. PT/OT/cardiac rehab following. Will monitor daily labs and chest x-rays. Electrolyte replacement per protocol. Continue Ferrous sulfate/vitamin C. Insulin management per internal medicine. Hemoglobin A1c preoperative 7.0%, patient is a diabetic, keep tight blood sugar control to promote sternal wound healing. Levemir 10 units subcu at bedtime was added by primary care on 01/15/2023. GI/DVT prophylaxis. Pain control with current medication regimen. Cntinue to record strict accurate intake and output. Daily weights. Shower daily. We will give Coumadin 2.5 mg by mouth today, and every Tuesday and Coumadin 5 mg starting tomorrow, and every Tuesday and Tuesday. We will check his INRs on Mondays and starting on 01/20/2023. Goal INR for the first 3 months to be 2.0-3.0, and after the 3 months goal rate will be 1.5-2.0. We will check PT and INR on 01/20/2023. INR today is 2.8 on 01/17/2023. Discharge planning is in place, anticipate discharge home today with a [facility]. More recommendations to follow based on patient's clinical course. Time with Patient: Greater than 30
--- NOTE | 2023-01-17 12:55 | P.PN ---
Subjective HISTORY OF PRESENT ILLNESS: Patient is status post aortic valve replacement. Patient examined this morning. He is sitting up in the chair. He denies chest pain or pressure. Denies shortness of breath. Vital signs are stable. INR is 2.8. PHYSICAL EXAM: VITAL SIGNS: Reviewed. GENERAL: Well-developed in no acute distress. NECK: Supple. No JVD or thyromegaly LUNGS: Respirations even and unlabored. Lungs essentially clear to auscultation bilaterally. HEART: Regular rate and rhythm. S1 and S2 heard. EXTREMITIES: Normal range of motion. No clubbing or cyanosis. Peripheral pulses intact. No lower extremity edema ASSESSMENT: Bicuspid aortic valve with severe aortic stenosis, status post mechanical aortic valve replacement Hypertension Hyperlipidemia diabetes Family history of CAD PLAN: Continue postoperative management per CT surgery Continue current cardiac medications Increase activity as tolerated Encouraged use of incentive spirometer Continue Coumadin. Monitor INR. Patient is stable for discharge home today from a cardiac standpoint Nurse practitioner note has been reviewed by physician. Signing provider agrees with the documented findings, assessment, and plan of care. Objective - Vital Signs Vital signs: Vital Signs Temp 99.1 F 01/17/23 08:07 Pulse 95 01/17/23 08:07 Resp 18 01/17/23 08:07 BP 113/74 01/17/23 08:07 Pulse Ox 97 01/17/23 08:07 FiO2 21 01/14/23 08:13 Intake & Output 01/16/23 01/17/23 01/17/23 18:59 06:59 18:59 Intake Total 330 10 120 Balance 330 10 120 Weight 95 kg Intake: IV 10 10 0.9 10 Invasive Line 5 10 Oral 330 110 Other: Voiding Method Toilet Toilet Toilet # Voids 4 1 ABP, PAP, CO, CI - Last Documented Arterial Blood Pressure 106/52 Pulmonary Artery Pressure 26/14 Cardiac Output 5.3 Cardiac Index 2.6 - Labs CBC & Chem 7: 01/17/23 08:16 01/17/23 08:16 Labs: Abnormal Lab Results - Last 24 Hours (Table) 01/16/23 01/16/23 01/17/23 Range/Units 16:24 20:08 06:21 RBC (4.30-5.90) m/uL Hgb (13.0-17.5) gm/dL Hct (39.0-53.0) % PT (9.0-12.0) sec INR (<1.2) Sodium (137-145) mmol/L Glucose (74-99) mg/dL POC Glucose (mg/dL) 238 H 285 H 140 H (70-110) mg/dL Calcium (8.4-10.2) mg/dL Total Protein (6.3-8.2) g/dL 01/17/23 01/17/23 01/17/23 Range/Units 08:16 08:16 08:16 RBC 2.97 L (4.30-5.90) m/uL Hgb 8.7 L (13.0-17.5) gm/dL Hct 27.3 L (39.0-53.0) % PT 26.9 H (9.0-12.0) sec INR 2.8 H (<1.2) Sodium 136 L (137-145) mmol/L Glucose 235 H (74-99) mg/dL POC Glucose (mg/dL) (70-110) mg/dL Calcium 8.1 L (8.4-10.2) mg/dL Total Protein 6.1 L (6.3-8.2) g/dL 01/17/23 Range/Units 11:35 RBC (4.30-5.90) m/uL Hgb (13.0-17.5) gm/dL Hct (39.0-53.0) % PT (9.0-12.0) sec INR (<1.2) Sodium (137-145) mmol/L Glucose (74-99) mg/dL POC Glucose (mg/dL) 224 H (70-110) mg/dL Calcium (8.4-10.2) mg/dL Total Protein (6.3-8.2) g/dL
[2023-01-17 13:57] VITALS: BP 112/64; PULSE 92; RESP 16; TEMP 98.4
--- NOTE | 2023-01-17 14:19 | P.DS ---
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 Consult: post cardiac surgery Do you want consulting provider notified?: Yes Consult Physician Routine Consulting Provider: Edith Segundo Consult Reason/Comments: med mgmt Do you want consulting provider notified?: Yes Primary care physician: Edith Ratna [facility] Course: FINAL DIAGNOSIS: Severe bicuspid aortic valve stenosis with preserved LV systolic function, status post aortic valve replacement using a 23 mm On-X mechanical prosthesis Diabetes mellitus type 2 Hypertension Hyperlipidemia Family history of coronary artery disease Daily marijuana use Lifetime nonsmoker Postoperative acute blood loss anemia, expected given hemodilution and cardiopulmonary bypass Tiny right sided apical pneumothorax, expected, resolved PRINCIPAL PROCEDURE: 1. Aortic valve replacement using a 23 mm mechanical prosthesis, On-X valve with conform sewing ring 2. Exclusion left atrial appendage using a 35 mm Atriclip 3. Intraoperative transesophageal echocardiogram 4. Epi-aortic ultrasound HISTORY OF PRESENT ILLNESS: This a 42-year-old gentleman who follows on an outpatient basis with Dr. Segundo for his primary care and with Dr. Raygoza for his cardiology care. Recently, the patient has been complaining of progressive dyspnea on exertion and has a known heart murmur which is been followed over the last 3-[address] Raygoza. The patient underwent workup including a transthoracic 2-D echocardiogram and transesophageal echocardiogram that demonstrated a severe bicuspid aortic valve stenosis with mild aortic valve regurgitation. For further evaluation and cardiac catheterization was completed on 12/29/2022 which ruled out any significant coronary artery disease, the left system and the right system was selectively visualized and did not show any high-grade stenosis. As part of his preoperative workup a computed tomography scan of the chest was completed which showed an ascending aorta dilation of 4 cm in its maximal dimensions. Subsequently due to the patient's symptoms and findings on his transthoracic and transesophageal echocardiograms a consult was placed to cardiothoracic surgery Dr. Joseph. Dr. Joseph met with the patient, treatment recommendations were discussed including surgical aortic valve replacement with a mechanical valve, risks and benefits of the surgery were discussed including the STS risk score and knowing and understanding the risks the patient wishes to proceed with the surgical option. HOSPITAL COURSE: On 01/11/2023 after obtaining consent the patient was taken to the preoperative area, perineum usual fashion and subsequently taken to the operating room where Dr. Hung Joseph performed an aortic valve replacement with a 23 mm mechanical prosthesis, On-X valve with conform sewing ring, and exclusion of his left atrial appendage using a 35 mm Atriclip. Upon completion of the surgery the patient was transferred to the cardiovascular intensive care unit where he was recovered and monitored hemodynamically. The patient was subsequently extubated, all lines, tubes and supported drips were discontinued when appropriate and he was transferred to the cardiac stepdown unit for further monitoring and rehabilitation. His tox and was titrated down, he continued to work with physical/occupational therapy, cardiac rehabilitation, he was tolerating an oral diet, his pain was well controlled without narcotics and he was ready to be discharged home on postoperative day #6 with On license of [facility]. The patient has received verbal and written instructions regarding his medications, activity restrictions, signs and symptoms requiring positional notification and his follow-up appointment. The patient will be discharged home with a prescription for Coumadin, he has been instructed to take Coumadin 2.5 mg by mouth every Tuesday, Tuesday and Tuesday, and Coumadin 5 mg by mouth every Tuesday, , Tuesday and Tuesday. The patient is also been given a prescription for lab work, PT and INRs every Mondays and with Coumadin dosing to follow. The patient is also being discharged home on an insulin sliding scale which will be followed by his primary care doctor, Dr. Segundo. Plan - Discharge Summary Discharge Rx Participant: No New Discharge Prescriptions: New Amiodarone [Cordarone] 400 mg PO BID #34 tab Metoprolol Tartrate [Lopressor] 100 mg PO BID #120 tab Pantoprazole [Protonix] 40 mg PO AC-BRKFST #30 tab Acetaminophen Tab [Tylenol] 1,000 mg PO Q6HR PRN tab PRN Reason: Fever And/ Or Pain Ascorbic Acid [Vitamin C] 500 mg PO DAILY@1200 #7 tab Warfarin [Coumadin] 5 mg PO DIRECTED #30 tab Ferrous Sulfate [Iron (65 MG Elemental)] 325 mg PO W/LUNCH #7 tab Furosemide [Lasix] 20 mg PO DAILY #5 tab Continue metFORMIN HCL 500 mg PO BID Glimepiride [Amaryl] 2 mg PO BID Aspirin 325 mg PO DAILY Rosuvastatin [Crestor] 10 mg PO DAILY Discontinued lisinopriL [Zestril] 10 mg PO DAILY Mupirocin [Mupirocin 2%] 1 applic NASAL BID #1 tub Discharge Medication List Glimepiride [Amaryl] 2 mg PO BID 05/01/19 [History] metFORMIN HCL 500 mg PO BID 05/01/19 [History] Rosuvastatin [Crestor] 10 mg PO DAILY 12/08/22 [History] Aspirin 325 mg PO DAILY 01/11/23 [History] Acetaminophen Tab [Tylenol] 1,000 mg PO Q6HR PRN tab 01/17/23 [Rx] Amiodarone [Cordarone] 400 mg PO BID #34 tab 01/17/23 [Rx] Ascorbic Acid [Vitamin C] 500 mg PO DAILY@1200 #7 tab 01/17/23 [Rx] Ferrous Sulfate [Iron (65 MG Elemental)] 325 mg PO W/LUNCH #7 tab 01/17/23 [Rx] Furosemide [Lasix] 20 mg PO DAILY #5 tab 01/17/23 [Rx] Metoprolol Tartrate [Lopressor] 100 mg PO BID #120 tab 01/17/23 [Rx] Pantoprazole [Protonix] 40 mg PO AC-BRKFST #30 tab 01/17/23 [Rx] Warfarin [Coumadin] 5 mg PO DIRECTED #30 tab 01/17/23 [Rx] Follow up Appointment(s)/Referral(s): Mitchell Nieves MD [STAFF PHYSICIAN] - 01/27/23 1:30 pm Mena Raygoza MD [STAFF PHYSICIAN] - 01/27/23 11:15 am [facility] PH,Cardiac [NON-STAFF] - 1 Week Hung Joseph MD [STAFF PHYSICIAN] - 1 Week Uri Alex NPC [Nurse Practitioner] - 1 Week [facility], [NON-STAFF] - 1 Week Edith Segundo MD [Primary Care Provider] - 1 Week Ambulatory/Diagnostic Orders: Complete Blood Count w/diff [LAB.AMB] Time Frame: 01/20/23, Facility: [facility], Location: Laboratory [facility] Comprehensive Metabolic Panel [LAB.AMB] Time Frame: 01/20/23, Facility: [facility], Location: Laboratory [facility] Prothrombin Time INR [LAB.AMB] Time Frame: 01/20/23, Facility: [facility], Location: Laboratory [facility] Activity/Diet/Wound Care/Special Instructions: DISCHARGE INSTRUCTIONS: 1. No driving for 4 weeks, or until physician gives their ok. 2. The patient should sleep in their own bed, no medical bed needed. 3. Stairs are not an issue. If the bedroom is upstairs, it is advised that the patient go up at night and down in the morning for the first week. Go slowly, using handrail and take 1 step at a time. 4. DONNA hose are to be worn for 30 days or until physician discontinues. 5. Heart hugger is to be worn 100% of the time until physician discontinues.(e xcept when showering) 6. No lifting, pushing, or pulling more than 10 pounds for 12 weeks. The physician will advise of any restriction changes. 7. The patient is expected to continue the prescribed walking program. 8. Continue pain control per as needed orders. 9. Continue with incentive spirometry and splinting/heart hugger until otherwise directed by the physician. 10. Must shower daily using liquid antibacterial soap and a separate white washcloth for each individual incision. 11. Routine sternal incision care. No powders, lotions, ointments on incisions. No dressings are necessary on incisions unless they are draining. Dermabond tape is to remain on sternal incision until surgeon follow-up. 12. Please call surgeon/[facility] [employer] for temp greater than 101 F or purulent drainage from incisions. 13. All prescriptions given by surgeon for 30 days. Refills need to be filled through newborn photographer/primary care physician. 14. A Red armband has been placed on the patient. It should be worn for 30 days post surgery and will be removed by the cardiac surgeons. If an ER visit is necessary, please make sure the number on the Red armband is called. 15. You have been referred to and are expected to begin Cardiac Rehab in approximately 4-6 weeks. 16. Check PT and INR every Mondays and for Coumadin dosing. Please fax results to [phone] Joseph. Goal INR for the first 3 months is 2-3, after the 3 months goal rate is 1.5-2.0. Coumadin 2.5 mg by mouth today, then Coumadin 2.5 mg every Tuesday, Tuesday and Tuesday. Coumadin 5 mg by mouth every Tuesday, , Tuesday and Sundays. recheck PT and INR on 01/20/2023 and call results for any adjustments in the Coumadin dose. The patient will need to follow in the Coumadin clinic for INR management. The clinic is a walk-in clinic at Dr. Raygoza's office and he is scheduled to see Dr. Raygoza on 01/27/2023 at 11:15 AM. The importance of taking Coumadin as prescribed has been discussed with the patient. 17. Risk modification including cessation of smoking marijuana has been discussed with the patient. 18. The patient has been instructed to please check his blood sugars before meals and at bedtime, record his blood sugars and bring his record of his blood sugars to his follow-up appointment with his primary care physician Dr. Segundo. HOME HEALTH SERVICES TO PROVIDE: RN SKILLED HOME CARE SERVICES FOR POST-OP SURGICAL PATIENTS WITH THE FOLLOWING: Coronary Artery Bypass Surgery (CABG), Mitral Valve Replacement/Repair ( MVR), Aortic Valve Replacement/Repair (AVR) RN TO CONTINUE EDUCATION FROM ``ROAD TO A HEALTH HEART PATIENT EDUCATION MANUAL (GIVEN TO PATIENT IN THE HOSPITAL) MEDICATION RECONCILIATION WITH EDUCATION NEEDED ON FIRST HOME VISIT EMPHASIZE IMPORTANCE OF WEARING BREAST SUPPORT/HEART HUGGER ENCOURAGE USE OF INCENTIVE SPIROMETER 10 X EVERY HOUR WHILE AWAKE ENCOURAGE UTILIZATION OF LOWER EXTREMITY COMPRESSION STOCKINGS/DONNA HOSE and ELEVATE LEGS ABOVE LEVEL OF HEART WHILE AT REST. ENCOURAGE AMBULATION 3-5x/day INCREASING TOLERATES, WHILE AVOIDING EXTREMES IN TEMPERATURE FREQUENCY: RN TO OPEN THE PATIENT WITHIN 24 HOURS OF DISCHARGE FROM THE HOSPITAL WITH TELEHEALTH INSTALLED AT [facility] [place], RN TO VISIT 2-3 X A WEEK FOR 4 WEEKS ESTABLISHED BY PATIENT NEEDS. LABORATORY: CBC, CMP TO BE DRAWN ON THE THIRD DAY HOME, (RAN STAT) FAX RESULTS TO [phone]. Check PT and INRs every Mondays and for Coumadin dosing. TELEHEALTH PARAMETERS: WEIGHT: NOTIFY MD OF WEIGHT GAIN OF 2 LBS IN 24 HOURS OR 5 LBS IN ONE WEEK HR: NOTIFY MD OF HR <55 BPM OR HR>100 BPM BP: NOTIFY MD IF BP <90/55 OR BP>140/100 O2 SAT: NOTIFY MD IF PO2<93% ON ROOM AIR SEND TELEHEALTH REPORT TO TOBACCO CURER AND CARDIOVASCULAR SURGEON THE FIRST WEEK OF CARE AND THEN BI-WEEKLY. PLEASE ADDITIONALLY COMMUNICATE ANY ABNORMALS AND NEW FINDINGS TO THE SURGEONS OFFICE. Discharge Disposition: HOME WITH HOME HEALTH SERVICES
[2023-01-17] MEDS ORDERED: WARFARIN 2.5 MG TAB PO SCH (18:00)
[2023-01-17] MEDS ORDERED: WARFARIN 5 MG TAB PO ONE (18:00)
[2023-01-18] MEDS ORDERED: FUROSEMIDE 20 MG TAB PO SCH (09:00)
--- NOTE | 2023-01-18 11:55 | CDI ---
Documentation Clarification Form Date: 01/18/2023 11:22:46 AM From: Gwen Gonzalez Phone: Admit Date: 01/11/2023 05:38:00 AM Patient Name: Josiah Cr Visit Number: [id number] Discharge Date: 01/17/2023 04:31:00 PM ATTENTION: The Clinical Documentation Specialists (CDI) and [facility] Coding Staff appreciate your assistance in clarifying documentation. Please respond to the clarification below the line at the bottom and electronically sign. The CDI & [facility] Coding staff will review the response and follow-up if needed. Please note: Queries are made part of the Legal Health Record. If you have any questions, please contact the author of this message via ITS. Dr. Hung Joseph Your patient has the documented diagnosis of Left ventricular hypertrophywith preserved systolic function but evidence of some diastolicdysfunction PER Procedure Note 01/11/23. Additional information regarding the type and acuity of dysfunction is requested. History/Risk Factors: 42yo M, Severebicuspid , congenital stenosis & insufficiency of AV, preserved LV systolic function,DMII w elevated BS, HTN, HLD, FHx CAD, MR Clinical Indicators: VS/Pulse OX: 100 Echocardiogram Results: transthoracic 2-DechocardiogramandTEE that demonstrated a severebicuspid ASwith mildAR. Chest X Ray: cardiomegaly 01/14/23 Treatment: Aortic valvereplacementusing a 23 mm mechanical prosthesis, OnX valve with conform sewingring. Exclusion of the left atrial appendage using a 35 mm atriclip. IntraoperativeTEE and epi-aorticultrasound Please clarify if heart failure is a valid diagnosis: [ ] Chronic Systolic Heart Failure (reduced EF) [ ] Acute on Chronic Systolic Heart Failure (reduced EF) [ x ] Chronic Diastolic Heart Failure (preserved EF) [ ] Acute on Chronic Diastolic Heart Failure (preserved EF) [ ] Chronic Systolic & Diastolic Heart Failure [ ] Acute on Chronic Heart Failure Systolic & Diastolic Heart Failure [ ] Other, please specify [ ] Unable to determine (Template Last Revised: September 2020) MTDD
[2023-01-18] MEDS ORDERED: WARFARIN 5 MG TAB PO SCH (18:00)
[2023-01-18] MEDS ORDERED: WARFARIN 2.5 MG TAB PO ONE (18:00)
== END 2023-01-17 16:31 | disposition home health service (06) | DRG 163 ==
LOC: 2ORMAIN 01-11 05:38 → 2SICU 01-11 12:59 → 3SCARD 01-14 01:05
PROVIDERS: ADMIT Surgery; ATTEND Surgery
PROC: 30233N0 Transfusion of Autologous Red Blood Cells into Peripheral Vein, Percutaneous Approach (ICD-10-PCS; 2023-01-11)
PROC: 5A1221Z Performance of Cardiac Output, Continuous (ICD-10-PCS; 2023-01-11)
PROC: 02L70CK Occlusion of Left Atrial Appendage with Extraluminal Device, Open Approach (ICD-10-PCS; 2023-01-11)
PROC: B24BZZZ Ultrasonography of Heart with Aorta (ICD-10-PCS; 2023-01-11)
PROC: 02RF0JZ Replacement of Aortic Valve with Synthetic Substitute, Open Approach (ICD-10-PCS; principal; 2023-01-11 08:00)
PROC: 3E033XZ Introduction of Vasopressor into Peripheral Vein, Percutaneous Approach (ICD-10-PCS; 2023-01-11 08:00)
DX: Q23.0 Congenital stenosis of aortic valve (principal); J93.9 Pneumothorax, unspecified; I50.32 Chronic diastolic (congestive) heart failure; I11.0 Hypertensive heart disease with heart failure; Q23.1 Congenital insufficiency of aortic valve; E11.65 Type 2 diabetes mellitus with hyperglycemia; I77.810 Thoracic aortic ectasia; I34.0 Nonrheumatic mitral (valve) insufficiency; B95.61 Methicillin susceptible Staphylococcus aureus infection as the cause of diseases classified elsewhere; D62 Acute posthemorrhagic anemia; R00.0 Tachycardia, unspecified; F17.200 Nicotine dependence, unspecified, uncomplicated; E78.5 Hyperlipidemia, unspecified; Z79.82 Long term (current) use of aspirin; Z79.84 Long term (current) use of oral hypoglycemic drugs; Z79.899 Other long term (current) drug therapy; Z82.49 Family history of ischemic heart disease and other diseases of the circulatory system
CPT/HCPCS: 71045; 71046; 80048; 80053; 82330; 82805; 83735; 85025; 85027; 85610; 85730; 86850; 86891; 86900; 86901; 86920; 88305; 94002; 94640; 94760

== ENCOUNTER → 2024-10-26 | Outpatient (CLI) | payer OTHER ==
--- NOTE | 2024-10-26 15:18 | XR ---
EXAMINATION TYPE: XR elbow complete RT DATE OF EXAM: 10/26/2024 3:13 PM COMPARISON: None. CLINICAL INDICATION: Male, 43 years old with history of S53.401A UNSPECIFIED SPRAIN OF RIGHT ELBOW, Mansoor CATHERINE, TECHNIQUE: XR elbow complete RT XX views were obtained. FINDINGS: There is no acute fracture/dislocation evident of the elbow. Small joint effusion suggested. Well-cor ticated ossific density adjacent to the lateral epicondylar region of the humerus. The overlying soft tissue appears unremarkable. IMPRESSION: There is no acute fracture or dislocation of the elbow. ICD 10 NO FRACTURE, INITIAL EVALUATION [facility], , 10/26/2024 3:16 PM
== END | disposition home or self-care (01) ==
LOC: RADXRMAIN 15:02
PROVIDERS: ATTEND Emergency Medicine
DX: S53.401A Unspecified sprain of right elbow, initial encounter (principal)

== ENCOUNTER → 2024-11-13 | Outpatient (CLI) | payer OTHER ==
--- NOTE | 2024-11-14 21:24 | MR ---
EXAMINATION TYPE: MR elbow RT wo con DATE OF EXAM: 11/13/2024 10:10 PM COMPARISON: Plain film 10/26/2024. CLINICAL INDICATION: Male, 44 years old with history of S53.401D; PHH, Right elbow pain and swelling after lifting injury. TECHNIQUE: Multiplanar multi-sequence imaging was performed of the elbow joint. No gadolinium given. FINDINGS: Ligaments and tendons: High PD signal with poor visualization of the common extensor origin with a ma jority of fibers disrupted. High-grade/possibly complete radial collateral ligament tear and lateral collateral ligament complex. The annular ligament susceptibility intact. The common flexor tendon, b iceps tendon, brachialis tendon, and triceps tendon are within normal limits. Osseous structures:. The remaining bone marrow signal intensity is unremarkable. A small amount of joint fluid is noted. IMPRESSION: High-grade/near complete tear of the common extensor tendon origin with suspected complete tears of t he radial collateral ligament and lateral collateral ligament complex with associated large joint eff usion. [facility], , 11/14/2024 9:22 PM
== END | disposition home or self-care (01) ==
LOC: RADMRIMAIN 21:45
PROVIDERS: ATTEND Emergency Medicine
DX: S53.401D Unspecified sprain of right elbow, subsequent encounter (principal); R20.9 Unspecified disturbances of skin sensation